=== PATIENT | female | born 1970 | race Caucasian/White ===

== ENCOUNTER 2023-06-23 11:02 | Inpatient (IN) | payer BC, SELFPAY ==
[2023-06-23] VITALS (18 sets, daily range): BP systolic 83–155; BP diastolic 47–92; PULSE 90–108; RESP 11–22; TEMP 36.3–36.7; O2SAT 95–100; BMI 32.1; BMI 31.6
--- NOTE | ~2023-06-23 | XR_ITS ---
EXAMINATION: XR UGI water soluble wo kub DATE: 06/27/2023 14:19 INDICATION: Status post repair of a perforated gastric ulcer. Assess for residual leak TECHNIQUE: Ammonia Operator overhead radiograph was obtained. Fluoroscopic images were obtained during injection of 240 mL water-soluble contrast into patient's existing nasogastric tube. A final overhead radiogra ph was obtained for a total of 2 radiographs and 188 fluoroscopic images. The amount of fluoroscopy t alexis used during this procedure was minutes. Total DAP was 26.185 Gycm^2 COMPARISON: CT dated 06/23/2023 FINDINGS: Ammonia Operator image demonstrates cholecystectomy clips in right upper quadrant, an additional surgical clip n oted left upper quadrant and midline skin car. A surgical drain extends across the epigastric reg ion. There is a nasogastric tube with tip in proximal side port in the body of the stomach. Subsequen t images demonstrate progressive contrast filling of the stomach with relatively prompt passage of co ntrast into the duodenum and more distal proximal jejunum. No evident extraluminal leakage of contras t. IMPRESSION: 1. No extraluminal leakage of contrast post repair of a perforated gastric ulcer at the gastric antru m. Reviewed, dictated and finalized at location A. IMPRESSION: 1. No extraluminal leakage of contrast post repair of a perforated gastric ulce r at the gastric antrum.
--- NOTE | ~2023-06-23 | XR_ITS ---
EXAMINATION: XR chest 1V portable DATE: 06/29/2023 16:32 INDICATION: Leukocytosis. TECHNIQUE: A single frontal view of the chest was obtained. COMPARISON: Chest single view 06/25/23 FINDINGS: There are airspace opacities in all lung zones bilaterally with a perihilar predominance, l eft worse than right. No pleural effusion or pneumothorax. The heart size is normal. IMPRESSION: 1. Worsened diffuse lung disease, consistent with pulmonary edema versus pneumonia. Reviewed, dictated and finalized at location E. IMPRESSION: 1. Worsened diffuse lung disease, consistent with pulmonary edema versus pneumo denzel.
--- NOTE | ~2023-06-23 | XR_ITS ---
EXAMINATION: XR chest 1V portable Exam Date/Time: 06/25/2023 13:20 CDT HISTORY: O2 saturation low Comparison: 06/23/2023. RESULT: Lines, tubes, and devices: None. Lungs and pleura: Linear mid and lower lung pulmonary opacities. Cardiomediastinal silhouette: Stable. Other: Large volume pneumoperitoneum. No acute osseous finding. IMPRESSION: Linear mid and lower lung pulmonary opacities with volume loss likely represent atelectasis, aspirati on/infection not excluded. Large pneumoperitoneum. Results reported telephonically to Destiny Sarmiento RN by Dr. Mcghee at 1:35 PM on 06/25/[address] Araceli philip at 1:41 PM on 06/25/2023. Reviewed, dictated and finalized at location K. IMPRESSION: Linear mid and lower lung pulmonary opacities with volume loss likely represent atelectasis, aspiration/infection not excluded. Large pneumoperitoneum. Results reported telephonically to Destiny Sarmiento RN by Dr. Mcghee at 1:35 PM on 06/25/[address] Ortega at 1:41 PM on 06/25/2023.
--- NOTE | ~2023-06-23 | CT_ITS ---
EXAMINATION: CTA chest abdomen pelvis DATE: 06/23/2023 14:02 INDICATION: Chest and abdominal pain TECHNIQUE: Computed tomographic angiography (CTA) of the chest, abdomen, and pelvis was performed wit hout and with 100 mL Omnipaque-350 intravenous contrast. Additional 3D reconstructions utilizing yazmin nal maximum intensity projection (MIP) were performed. Automated exposure control and iterative recon struction technique were employed. The dose-length product was 711.7 mGy-cm. COMPARISON: None FINDINGS: Chest: Mild groundglass opacities in the bilateral lower lobes and favor atelectasis over mild pulmonary dori ma or pneumonia. Heart size is normal. No pericardial or pleural effusion. Thoracic aorta is normal i n caliber with no dissection. Small sliding-type hiatal hernia. No pathologically enlarged thoracic l ymphadenopathy. Abdomen and pelvis: There is prominent edematous wall thickening along the anterior wall of the gastric antrum with air i s a deep color button ulceration which extends to near the serosal surface. Cholecystectomy clips the gallbladder fossa. There is heterogeneous attenuation of the spleen most likely related to the arter ial phase of contrast. Liver, pancreas, bilateral adrenal glands and kidneys are normal. Mild diffuse colonic wall thickening consistent with pancolitis. Small bowel and appendix are normal. Small amoun t of ascites scattered throughout the abdomen and pelvis. No abscess or free intraperitoneal gas. Nik dder is normal. The uterus is not identified and has likely been surgically resected. No pathological ly enlarged abdominal or pelvic lymphadenopathy. Normal caliber abdominal aorta with no dissection. M inimal scattered nonhemodynamically significant atherosclerotic plaque predominantly at the distal ao rta and bilateral common iliac arteries. IMPRESSION: 1. Normal aorta with no aneurysm or dissection. 2. Peptic ulcer disease with edematous wall thickening surrounding a collar button ulcer along the an terior wall of the gastric antrum. 3. Diffuse colonic wall thickening consistent with colitis which could be infectious, inflammatory or less likely ischemic in etiology. 4. Small amount of nonspecific ascites. Reviewed, dictated and finalized at location A. IMPRESSION: 1. Normal aorta with no aneurysm or dissection. 2. Peptic ulcer disease with edematous wall thickening surrounding a collar but ton ulcer along the anterior wall of the gastric antrum. 3. Diffuse colonic wall thickening consistent with colitis which could be infec tious, inflammatory or less likely ischemic in etiology. 4. Small amount of nonspecific ascites.
--- NOTE | ~2023-06-23 | CT_ITS ---
EXAMINATION: CT abdomen pelvis w con DATE: 07/01/2023 14:05 INDICATION: Postoperative leukocytosis TECHNIQUE: Computed tomography (CT) of the abdomen and pelvis was performed with 100 mL Omnipaque-350 intravenous contrast. Automated exposure control and iterative reconstruction technique were employe d. The dose-length product was 670.28 mGy-cm. COMPARISON: CT dated 06/23/2023 FINDINGS: Patchy groundglass opacities and consolidation in the left lower lobe, lingula, right middle lobe and minimally in the visualized right lower lobe. There are small bilateral pleural effusions. Heart siz e is normal. Atherosclerotic coronary artery calcifications. No pericardial effusion. There is persis tent wall thickening along the anterior wall of the gastric antrum at the site of the previous noted gastric ulcer there is a new portion of omental fat which now extends between the site of the gastric ulcer and the inferolateral margin of the left hepatic lobe which was not present at the time of the prior study consistent with the intervening gastric ulcer repair with omental patching. Left upper q uadrant surgical drain which extends across the midline along the caudal margin of the left hepatic l obe. There are midline upper abdominal wall skin car. Cholecystectomy clips the gallbladder fossa . Liver, spleen, pancreas, bilateral adrenal glands and kidneys are normal. There is layering fluid i n the colon consistent with nonspecific diarrhea. No bowel obstruction. Bladder is normal. The uterus is not identified and has likely been surgically resected. No free intraperitoneal gas or fluid. No pathologically enlarged abdominal or pelvic lymphadenopathy. Mild to moderate lower lumbar predominan t facet osteoarthritis. IMPRESSION: 1. Postoperative changes in the upper abdomen consistent with recent gastric antral ulcer repair with omental patching. There is some persistent wall thickening at the gastric antrum but no evident absc ess or free intraperitoneal gas or fluid. 2. Patchy groundglass opacities and consolidation in the bilateral lower lungs consistent with multif ocal pneumonia. 3. Small bilateral pleural effusions. 4. Fluid scattered throughout the colon consistent with nonspecific diarrhea. Reviewed, dictated and finalized at location A. IMPRESSION: 1. Postoperative changes in the upper abdomen consistent with recent gastric an tral ulcer repair with omental patching. There is some persistent wall thickeni ng at the gastric antrum but no evident abscess or free intraperitoneal gas or fluid. 2. Patchy groundglass opacities and consolidation in the bilateral lower lungs consistent with multifocal pneumonia. 3. Small bilateral pleural effusions. 4. Fluid scattered throughout the colon consistent with nonspecific diarrhea.
--- NOTE | ~2023-06-23 | XR_ITS ---
EXAMINATION: XR chest 1V portable Exam Date/Time: 06/23/2023 14:20 CDT HISTORY: chest pain TO LEFT SHOULDER Comparison: CTA chest abdomen pelvis, same date. RESULT: Lines, tubes, and devices: None. Lungs and pleura: Clear. Cardiomediastinal silhouette: Stable. Other: No acute osseous or upper abdominal finding. IMPRESSION: No acute cardiopulmonary process. Reviewed, dictated and finalized at location K.
[2023-06-23 12:36] LABS: Basophils Absolute Auto 0.1 K/mm3 (0.0-0.1); Basophils Percent Auto 0.6 % (0.2-1.2); Eosinophils Absolute Auto 0.1 K/mm3 (0-0.3); Eosinophils Percent Auto 0.4 % (0-4.4); Hematocrit 38.8 % (37.0-47.0); Hemoglobin 14.2 g/dL (12.0-15.0); Immature Granulocyte Absolute 0.03 K/mm3 (0.00-0.031); Immature Granulocyte Percent A 0.2 % (0-0.5); Lymphocytes Absolute Auto 0.89 K/mm3 (0.9-3.2); Lymphocytes Percent Auto 7.2 % (18.3-44.2); Mean Corpuscular HGB Conc 36.6 g/dl (32-36); Mean Corpuscular Hemoglobin 38.7 pg (26-34); Mean Corpuscular Volume 105.7 fl (80-100); Monocytes Percent Auto 8.2 % (2.6-8.5); Neutrophils Absolute Auto 10.2 K/mm3 (1.3-6.7); Neutrophils Percent Auto 83.4 % (45.5-73.1); Platelet Count Result 336 k/mm3 (150-375); Red Blood Count 3.67 M/mm3 (4.2-5.4); Red Cell Distribution Width 12.1 % (11.5-14.5); White Blood Count 12.3 K/mm3 (4.5-10.0)
[2023-06-23 12:39] LABS: Appearance Urine Clear (Clear); Bilirubin Urine Negative (Negative); Blood Urine Negative (Negative); Color Urine Yellow (Yellow); Glucose Urine UA Negative (Negative); Ketones Urine Negative (Negative); Leukocyte Esterase Ur Negative LEU/UL (Negative); Nitrate Urine Negative (Negative); Protein Urine Negative (Negative); Specific Grav Ur 1.009 (1.001-1.035); Urobilinogen Urine 0.2 mg/dL (<2.0); pH Urine 5.5 (5.0-9.0)
[2023-06-23 12:54] LABS: Add Urine Microscopic? NO
[2023-06-23 13:03] LABS: Macrocytosis 1+ (NORMAL); Platelet Estimate Adequate (Adequate); Schistocytes None Seen
--- NOTE | 2023-06-23 13:16 | ED.GENADULT ---
HPI - General Adult General Chief complaint: Unspecified Stated complaint: pain shoulderm neck,abdomen Time Seen by Provider: 06/23/23 12:51 History of Present Illness HPI narrative: Patient is a 53-year-old female with history of hypertension here today with shoulder pain, abdominal pain, generalized malaise, diarrhea. She states that 2 days ago she began having a decreased appetite and decreased energy. Yesterday she had 3 episodes of liquid stools with no associated abdominal pain or blood in stools. Today she began having some pain over her trapezius muscle on the left side and it radiates into her chest. She notes that the pain seems to be worse with deep breaths. The pain is not located in her left flank and radiates to her right flank. She denies any cough, congestion, sick contacts. She notes that the 1 time she felt similar to this in the past was when she had cholecystitis and had her gallbladder removed. She denies any prior cardiac history. No new foods or restaurants predating the symptoms. No prior colonoscopy. No urinary symptoms. Related Data Home Medications Medication Instructions Recorded Confirmed acetaminophen 325 mg tablet 650 mg PO Q6H PRN Pain 06/23/23 06/23/23 chlorpheniramine maleate 4 mg 4 mg PO Q4H PRN Allergy Symptoms 06/23/23 06/23/23 tablet cholecalciferol (vitamin D3) 50 2,000 unit PO DAILY 06/23/23 06/23/23 mcg (2,000 unit) capsule estradiol 2 mg tablet 2 mg PO DAILY 06/23/23 06/23/23 ferrous sulfate 325 mg (65 mg 325 mg PO DAILY 06/23/23 06/23/23 iron) tablet ibuprofen 200 mg tablet 400 mg PO BID PRN Pain 06/23/23 06/23/23 losartan 100 1 tablet PO DAILY 06/23/23 06/23/23 mg-hydrochlorothiazide 25 mg tablet Allergies Allergy/AdvReac Type Severity Reaction Status Date / Time No Known Allergies Allergy Mild Verified 06/23/23 11:04 Review of Systems Review of Systems: All systems reviewed & are unremarkable except as noted in HPI and below PMFSH Family History Family History (Updated 06/23/23 @ 21:27 by Julieta Parada RN) Sibling Hypertension Father Hypertension Meningitis Leukemia Social History Social History Smoking packs per day: 0.25 Smoking cigarettes per day: 5.0 Years smoked: 18 Smoking pack-years: 4.50 Smoking status: Current every day smoker Tobacco type: cigarettes Alcohol intake: current Drinks per week: 25 Substance use: never Other substance usage details: drinks vodka and water, last drink last evening Do You Feel Safe in your Home?: Yes Lack of Transportation: No Lack of Food: Never True Current Housing: I Have Housing Concerned About Future Housing: No Difficulty Paying Gas/Electric Bills: No Difficulty Paying for Meds: No Currently Unemployed: No Education: Associate Degree Difficulty w/ Childcare or Family Care: No Spiritual care concerns: No Exam Narrative: GENERAL: Ill-appearing, well-nourished, and in no acute distress. HEAD: Normocephalic, atraumatic. EYES: PERRLA and EOMI. ENT: Nares clear. Mucous membranes moist. NECK: Supple. Reproducible tenderness over the trapezius muscle on the left side CHEST: Clear to auscultation. No respiratory distress. HEART: tachycardic. Normal peripheral pulses. ABDOMEN: Bilateral CVA tenderness. Diffuse abdominal tenderness with guarding when palpating the bilateral upper quadrants. EXTREMITIES: Normal range of motion. No edema. SKIN: Warm, dry, no rash. NEURO: No focal deficits. Alert and oriented x3. Course Course Emergency Course: Chart review performed, patient here from urgent care for shoulder pain that goes to her abdomen, nausea, loose stools yesterday. Triage vitals show low blood pressure of 83/47, tachycardic at 108, afebrile. No prior visits in our system. Patient seen evaluated, ill-appearing and in quite a bit of pain. Her blood pressure is low at 83/47. Expect she likely has a an acute abdominal infectious pr
[2023-06-23 13:37] LABS: Sodium 118 mmol/L (137-145)
[2023-06-23 13:38] LABS: Alanine Aminotransferase 27 U/L (6-35); Albumin Level 4.3 g/dL (3.5-5.1); Alkaline Phosphatase 82 U/L (38-126); Anion Gap 16 mmol/L (4-12); Aspartate Amino Transferase 50 U/L (14-36); Bilirubin,Total 1.2 mg/dL (0.2-1.3); Blood Urea Nitrogen 9 mg/dL (7-17); Calcium 9.3 mg/dL (8.4-10.2); Carbon Dioxide 11 mmol/L (22-30); Chloride 91 mmol/L (98-107); Estimated CRCL calculation 52 ml/min; Estimated Glomerular Filt Rate 52; Glucose 80 mg/dL (65-110); Lipase 55 U/L (23-300); Potassium 2.8 mmol/L (3.4-5.0)
--- NOTE | 2023-06-23 13:44 | ECG_ITS ---
SEE SCANNED COPY FOR CONFIRMED REPORT MTDD
[2023-06-23] MEDS: ONDANSETRON INJ 4 MG/2 ML VIAL IV PUSH (14:01)
[2023-06-23] MEDS: MORPHINE SULFATE (*CRX) 4 MG/ML INJ IV PUSH ×2 (14:01→16:29)
[2023-06-23 14:33] LABS: Partial Thromboplastin Time 27.9 Seconds (22.3-36.8); Prothrombin Time 13.5 Seconds (11.1-14.7)
[2023-06-23 14:44] LABS: Lactic Acid Reflex 2.7 mmol/L (0.7-2.0)
[2023-06-23 14:47] LABS: CRP < 0.5 mg/dL (<1.0)
[2023-06-23] MEDS: PANTOPRAZOLE SODIUM IV 40 MG VIAL 80 MG IV PUSH (14:48)
[2023-06-23 14:54] LABS: Troponin I < 0.012 ng/mL (0.000-0.034)
[2023-06-23 14:58] LABS: Influenza A QL RT-PCR Negative (Negative); Influenza B QL RT-PCR Negative (Negative); RSV RNA, RT-PCR Negative (Negative); SARS-CoV-2 RNA PCR Negative (Negative)
[2023-06-23] MEDS: BELLADONNA ALK/PHENOB ELIX 10 ML, MAG HYDROX/ALUMINUM HYD/SIMETH 30 ML, LIDOCAINE HCL 2... PO (16:30)
[2023-06-23] MEDS: POTASSIUM BICARBONATE 25 MEQ TABEF 50 MEQ PO (17:03)
[2023-06-23] MEDS: POTASSIUM CHLORIDE INJ 40 MEQ in SODIUM CHLORIDE 0.9% IV 500 ML 130 MEQ IVPB (17:07)
[2023-06-23 17:19] LABS: Reflex Lactic Acid Yes or No Add Lactic
[2023-06-23 18:00] LABS: Anion Gap 9 mmol/L (4-12); Blood Urea Nitrogen 8 mg/dL (7-17); Calcium 8.6 mg/dL (8.4-10.2); Carbon Dioxide 18 mmol/L (22-30); Chloride 91 mmol/L (98-107); Estimated CRCL calculation 69 ml/min; Estimated Glomerular Filt Rate > 60; Glucose 92 mg/dL (65-110); Potassium 3.4 mmol/L (3.4-5.0); Sodium 118 mmol/L (137-145)
[2023-06-23] MEDS: metroNIDAZOLE 500 MG/ISO 100ML 500 MG/100 ML BAG 100 MG IVPB (18:14)
[2023-06-23 18:38] LABS: Magnesium 1.3 mg/dL (1.6-2.3)
[2023-06-23] MEDS: HYDROmorphone HCL INJ (*CRX) 1 MG/ML SYR IV PUSH ×2 (18:43→21:36)
[2023-06-23] MEDS: SODIUM CHLORIDE 0.9% IV 1,000 ML 75 ML IV CONT (18:44)
[2023-06-23] MEDS: CEFEPIME 2 GM/NS 50 ML 2 GM/50 ML BAG IVPB (19:06)
[2023-06-23 19:55] LABS: Lactic Acid 1.7 mmol/L (0.7-2.0)
--- NOTE | 2023-06-23 21:04 | ADMGEN ---
This patient, Acacia Sorto, was admitted to IMU Room 204-01. Patient/family oriented to hospital policies and general routines including ID bracelet, bed and alarms, visiting hours, pain management, procedures, bathroom and other care routines, personal items, smoking policy, room service/diet, and visiting hours. Information on how to activate the Rapid Response Team has been discussed. Patient/Family are encouraged to report perceived risks to care and to ask questions if they do not understand what they are told or what they should do.
--- NOTE | 2023-06-23 21:04 | PC.NURSE ---
Dr Luu to see patient. Informed MD of patients abdominal pain. She states only the dilaudid helped. Dr Luu OK with one time dose 1mg dilaudid.
[2023-06-23 22:35] LABS: Anion Gap 7 mmol/L (4-12); Blood Urea Nitrogen 10 mg/dL (7-17); Calcium 8.3 mg/dL (8.4-10.2); Carbon Dioxide 18 mmol/L (22-30); Chloride 95 mmol/L (98-107); Estimated CRCL calculation 56 ml/min; Estimated Glomerular Filt Rate 58; Glucose 113 mg/dL (65-110); Potassium 4.6 mmol/L (3.4-5.0); Sodium 120 mmol/L (137-145)
[2023-06-24] VITALS (18 sets, daily range): BP systolic 98–121; BP diastolic 55–61; PULSE 89–122; RESP 18–20; TEMP 36.1–36.9; O2SAT 96–100
[2023-06-24] MEDS: HYDROmorphone HCL INJ (*CRX) 1 MG/ML SYR IV PUSH ×4 (04:10→20:59)
--- NOTE | 2023-06-24 04:10 | PM.IMHP ---
H&P: HPI History of Present Illness Date/Time: 06/24/23 04:10 Chief Complaint: Abdominal pain Narrative: 53-year-old female with a past medical history of obesity, chronic heavy alcohol use, tobacco use, irritable bowel syndrome and essential hypertension who presented to the ER via private vehicle from urgent care due to left shoulder pain, that radiated down to the abdomen and was more generalized as time went Patient reports that 2 days ago she developed a precipitous decrease in appetite and felt fatigued give. Then yesterday she had 3 episodes of profuse diarrhea that she stated seemed like he was from a fire hose that was green in color. She reports her stools are usually green due to iron supplements. It was accompanied by some nausea but not any significant vomiting. She reports that her symptoms initially started in the left upper shoulder into the trapezius in seemed to radiate down her side and across her abdomen. As time went on the pain became more generalized. She has noticed some increased abdominal fullness in the top of her abdomen over the last several days. She denies any hematochezia or melena. She reports that she was started on iron supplements in December when she developed anemia. Her ferritin at that time was down to 7. She did not have a GI evaluation. She thought that her iron deficiency was because she did not eat a significant amount of meat. She has never had a EGD or colonoscopy. She does report a chronic sensation of having to clear her throat and postnasal drip. She intermittently but frequently has episodes of significant decreased appetite. She has a tendency towards loose stools ever since she had her cholecystectomy around 1995. She reports that her weight has been decreasing at least since December. She has not been having any fevers but did have some cold clammy sweats yesterday. She denies any urinary changes. She has not had any recent travel and denies any ill contacts. She denies family history of inflammatory bowel disease. CT of the chest abdomen pelvis performed in the ER demonstrated peptic ulcer disease with edematous wall thickening surrounding a collar button ulcer along the anterior wall of the gastric antrum, diffuse colonic wall thickening consistent with colitis which could be infectious inflammatory or less likely ischemic. Patient also had a small amount of ascites. She denies a history of cirrhosis but does drink 3-4 vodka containing beverages a day. She denies any history of anxiety tremors or symptom of alcohol withdrawal with cessation of alcohol. She states that she has stopped drinking in the past without symptoms but it is been a while. She reports that when she had her recent testing for her anemia is they also checked B12 levels and vitamin-D levels. She is vitamin-D deficient but denies B12 deficiency. Patient does report that she has frequent need for naps in the afternoon. She has been told that she snores. She has never had a sleep study. She denies cardiac history. She has a murmur noted on exam. Patient denies any dyspnea on exertion, palpitations or lower extremity swelling. She denies known history of murmur. Review of Systems Review of Systems: 12 systems were reviewed with pertinent positives and negatives per HPI. Except as documented in the HPI, all other systems were reviewed and are negative. [facility] Past Medical History Medical History Chronic alcohol abuse Eczema Essential hypertension Obesity (BMI 30.0-34.9) Vitamin D deficiency Surgical History Surgical History (Updated 06/24/23 @ 09:07 by Julieta Angulo DO) History of tonsillectomy and adenoidectomy History of total abdominal hysterectomy and bilateral salpingo-oophorectomy (~2004) Endometriosis History of tubal ligation Hx of cholecystectomy (~1994) Family History Family History (Reviewed 06/24/23 @ 09:07 by Julieta Angulo
[2023-06-24] MEDS: metroNIDAZOLE 500 MG/ISO 100ML 500 MG/100 ML BAG 100 MG IVPB ×3 (04:15→23:06)
[2023-06-24 05:06] LABS: Hematocrit 30.7 % (37.0-47.0); Mean Corpuscular HGB Conc 35.8 g/dl (32-36); Mean Corpuscular Hemoglobin 38.3 pg (26-34); Mean Platelet Volume 9.3 fl (7.4-10.4); Platelet Count Result 271 k/mm3 (150-375); Red Blood Count 2.87 M/mm3 (4.2-5.4); Red Cell Distribution Width 12.4 % (11.5-14.5); White Blood Count 5.3 K/mm3 (4.5-10.0)
[2023-06-24 05:22] LABS: Anion Gap 6 mmol/L (4-12); Blood Urea Nitrogen 11 mg/dL (7-17); Calcium 8.2 mg/dL (8.4-10.2); Carbon Dioxide 22 mmol/L (22-30); Chloride 95 mmol/L (98-107); Estimated CRCL calculation 56 ml/min; Estimated Glomerular Filt Rate 58; Glucose 102 mg/dL (65-110); Potassium 4.1 mmol/L (3.4-5.0); Sodium 123 mmol/L (137-145)
[2023-06-24] MEDS: PANTOPRAZOLE SODIUM IV 40 MG VIAL IV PUSH ×2 (08:20→20:58)
[2023-06-24] MEDS: THIAMINE HCL 100 MG TABLET PO (08:20)
[2023-06-24] MEDS: FOLIC ACID 1 MG TABLET PO (08:20)
[2023-06-24] MEDS: CHOLECALCIFEROL 1,000 UNITS TABLET 2000 UNITS PO (08:20)
[2023-06-24 08:35] LABS: Sodium 126 mmol/L (137-145)
[2023-06-24 08:37] LABS: Alanine Aminotransferase 19 U/L (6-35); Albumin Level 3.4 g/dL (3.5-5.1); Alkaline Phosphatase 56 U/L (38-126); Aspartate Amino Transferase 28 U/L (14-36); Bilirubin,Total 0.7 mg/dL (0.2-1.3); Lipase 24 U/L (23-300); Magnesium 1.7 mg/dL (1.6-2.3)
--- NOTE | 2023-06-24 09:00 | P.CONGI_ITS ---
I, Prashanth Rivera MD, have provided a substantive portion of the care of this patient and discussed the patient with my Nurse Practitioner. I have reviewed any new relevant radiographic and laboratory results including medications. I agree with her documentation as noted below.?I personally performed the medical decision making and much of the history and exam for this encounter. briefly here with new onset of severe abdominal pain, also chronic use of alcohol, nsaid's, never had scopes. Also intermittent diarrhea. CT scan showed possible stomach ulcer and colitis, started on antibiotics. Plan is stool cultures, protonix, thiamine, abx and will do egd/colonoscopy tomorrow, patient is agreeable Assessment and Plan Assessment and plan (1) Chronic alcohol abuse: Code(s): F10.10 - Alcohol abuse, uncomplicated Status: Acute (2) Gastric ulcer: Qualifiers: Gastric ulcer chronicity: acute Gastric ulcer complication status: without hemorrhage or perforation Qualified Code(s): K25.3 - Acute gastric ulcer without hemorrhage or perforation Code(s): K25.9 - Gastric ulcer, unspecified as acute or chronic, without hemorrhage or perforation Status: Acute (3) Colitis: Code(s): K52.9 - Noninfective gastroenteritis and colitis, unspecified Status: Acute (4) Macrocytic anemia: Code(s): D53.9 - Nutritional anemia, unspecified Status: Acute (5) Acute hyponatremia: Code(s): E87.1 - Hypo-osmolality and hyponatremia Status: Acute (6) Diarrhea: Qualifiers: Diarrhea type: unspecified type Qualified Code(s): R19.7 - Diarrhea, unspecified Code(s): R19.7 - Diarrhea, unspecified Status: Acute Plan 1) LUQ/generalized abdominal pain/nausea/abnormal imaging digestive: Patient has never had an EGD. Patient with an acute onset of severe pain that started yesterday morning. She states that the pain started in her left shoulder then moved into her left upper quadrant and is now radiating throughout her abdomen. This pain is sharp and debilitating at times An increases when she tries to cough or take a deep breath. Patient with a longstanding history of NSAID use stating that she takes ibuprofen 2 to 3 times a day. She drinks alcohol 3-4 mixed drinks daily. She has occasional GERD and nausea prior to admission that was controlled with p.r.n. Tums. LFTs and lipase normal. CTA showed peptic ulcer disease with edematous wall thickening surrounding a collar button ulcer on the anterior wall of the gastric antrum. Denies melena or hematemesis. Patient denies aspirin or anticoag use [employer]. * Continue BID PPI * Start carafate 1 gm ac/hs * Avoid NSAID's, aspirin and anticoags * Plan for EGD tomorrow once electrolytes are corrected * Continue supportive are with pain management and antiemetics as needed 2) Abnormal imaging digestive-colitis/diarrhea: No colonoscopy history. Family Hx negative for CRC or IBD. Admits to chronic diarrhea that has been occurring for years. On average patient is having 2-3 loose to liquid occasionally urgent BM's per day that are Mostly postprandial but does not seem to have a direct correlation with food intake. Patient admits to a history of varying vitamin deficiencies which she states were corrected last year and for awhile she was feeling better . Patient has been using OTC Imodium as needed to control d iarrhea prior to social activities. CT showed diffuse colonic wall thickening. C-Diff negative. Denies hematochezia. * Continue antibiotics * Stool studies order to evaluate for possible causes of chronic diarrhea * Celiac panel ordered * Plan
--- NOTE | 2023-06-24 09:00 | WPDGICN ---
Assessment and Plan Assessment and plan (1) Chronic alcohol abuse: Code(s): F10.10 - Alcohol abuse, uncomplicated Status: Acute (2) Gastric ulcer: Qualifiers: Gastric ulcer chronicity: acute Gastric ulcer complication status: without hemorrhage or perforation Qualified Code(s): K25.3 - Acute gastric ulcer without hemorrhage or perforation Code(s): K25.9 - Gastric ulcer, unspecified as acute or chronic, without hemorrhage or perforation Status: Acute (3) Colitis: Code(s): K52.9 - Noninfective gastroenteritis and colitis, unspecified Status: Acute (4) Macrocytic anemia: Code(s): D53.9 - Nutritional anemia, unspecified Status: Acute (5) Acute hyponatremia: Code(s): E87.1 - Hypo-osmolality and hyponatremia Status: Acute (6) Diarrhea: Qualifiers: Diarrhea type: unspecified type Qualified Code(s): R19.7 - Diarrhea, unspecified Code(s): R19.7 - Diarrhea, unspecified Status: Acute Plan 1) LUQ/generalized abdominal pain/nausea/abnormal imaging digestive: Patient has never had an EGD. Patient with an acute onset of severe pain that started yesterday morning. She states that the pain started in her left shoulder then moved into her left upper quadrant and is now radiating throughout her abdomen. This pain is sharp and debilitating at times An increases when she tries to cough or take a deep breath. Patient with a longstanding history of NSAID use stating that she takes ibuprofen 2 to 3 times a day. She drinks alcohol 3-4 mixed drinks daily. She has occasional GERD and nausea prior to admission that was controlled with p.r.n. Tums. LFTs and lipase normal. CTA showed peptic ulcer disease with edematous wall thickening surrounding a collar button ulcer on the anterior wall of the gastric antrum. Denies melena or hematemesis. 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 Continue BID PPI Start carafate 1 gm ac/hs Avoid NSAID's, aspirin and anticoags Plan for EGD tomorrow once electrolytes are corrected Continue supportive are with pain management and antiemetics as needed 2) Abnormal imaging digestive-colitis/diarrhea: No colonoscopy history. Family Hx negative for CRC or IBD. Admits to chronic diarrhea that has been occurring for years. On average patient is having 2-3 loose to liquid occasionally urgent BM's per day that are Mostly postprandial but does not seem to have a direct correlation with food intake. Patient admits to a history of varying vitamin deficiencies which she states were corrected last year and for awhile she was feeling better . Patient has been using OTC Imodium as needed to control diarrhea prior to social activities. CT showed diffuse colonic wall thickening. C-Diff negative. Denies hematochezia. Continue antibiotics Stool studies order to evaluate for possible causes of chronic diarrhea Celiac panel ordered Plan for colonoscopy tomorrow Clear liquid diet today and then NPO after midnight 3) Macrocytic anemia: Drop in H/H since admission with WBC's 5, Hgb 14-->11, Hct 39-->31, MCV 107 and platelets 271. Hx of daily ETOH use. No signs of active GI bleeding. B12 and folate pending 4) Hyponatremia: On admission sodium at 118 and today 126. Primary care team to monitor and correct prior to endoscopy 5) ETOH abuse: Cessation recommended GI Consult Note Consult date/time: 06/24/23 09:00 Reason for consult: Gastric ulcer HPI: Acacia Sorto is a 53 year old female with a history of EtOH abuse, IBS, and HTN. she presented to the emergency room yesterday with complaints of left shoulder pain that was radiating into her abdomen. GI was consulted for gastric ulcer noted on imaging. Patient admits to acute onset of severe pain that started yesterday morning. Prior to admission the patient states that she was taking ibuprofen 2-3 times daily for a long time . She states that the pain starte
--- NOTE | 2023-06-24 09:30 | PC.NURSE ---
updated on sodium level of 126. MD ordered pausing IV fluids, repeat labs at 1130, and to be notified with lab result.
[2023-06-24 09:43] LABS: Folic Acid 2.9 ng/mL (2.76->20)
[2023-06-24 10:13] LABS: Creatinine Urine 53.5 mg/dL; Total Protein Urine Random 15 mg/dL; Ur Ttl Prot Creatinine Ratio 0.28 mg/mg (0-0.20); Urea Random Urine 210 MG/DL
[2023-06-24 10:23] LABS: Sodium Urine Random 28 meq/L
--- NOTE | 2023-06-24 10:48 | PM.CNNEP ---
Assessment and Plan Assessment and plan (1) Acute hyponatremia: Code(s): E87.1 - Hypo-osmolality and hyponatremia Status: Acute Assessment and Plan: presumably acute (but no previous labs to compare) improvement noted with gentle normal saline IVFs this argues in favor of hypovolemia as etiology of low sodium history of alcohol as well as HCTZ use may be contributing factors check TSH, cortisol, SPEP, UPEP, and serum/urine osmolality as well as urine electrolytes follow serial sodium levels (2) Acute hypokalemia: Code(s): E87.6 - Hypokalemia Status: Acute Assessment and Plan: due to poor oral intake and ongoing GI symptoms replete as needed (3) Colitis: Code(s): K52.9 - Noninfective gastroenteritis and colitis, unspecified Status: Acute Assessment and Plan: as noted by admission imaging follow culture data on antibiotics (4) Gastric ulcer: Qualifiers: Gastric ulcer chronicity: acute Gastric ulcer complication status: without hemorrhage or perforation Qualified Code(s): K25.3 - Acute gastric ulcer without hemorrhage or perforation Code(s): K25.9 - Gastric ulcer, unspecified as acute or chronic, without hemorrhage or perforation Status: Acute Assessment and Plan: as noted by admission imaging GI consulted noted plans for EGD and colonoscopy I will continue to follow the patient with you while she remains hospitalized make further recommendations as deemed necessary Thank you for allowing me to participate in the care this patient. History of Present Illness Reason for Consult Consult date: 06/24/23 Reason for consult: hyponatremia Chief Complaint Chief complaint: Colitis/Gastric Ulcer/Hyponatremia History of Present Illness Narrative: The patient is a 53-year-old female with a past medical history as outlined below who presented to [facility] Emergency room for further evaluation of abdominal pain. The patient reports that approximately 48 hr prior to admission she had developed a significant decrease in her appetite /poor oral intake in in association with fatigue. This is a round the same time when she developed the abdominal pain that initially started her left shoulder that but that radiated down to her abdomen and progressively worsened as well. The symptoms were accompanied by intermittent diarrhea although she reports that she has chronic loose stools since her cholecystectomy several years ago. As the symptoms continued to progressively worsen, she presented to the emergency room for further assessment. Workup and evaluation emergency room demonstrated the patient be hypotensive with a systolic BP in the 80s in association with tachycardia but otherwise afebrile. She appeared in moderate distress and subsequent blood test were significant for a mildly elevated white blood cell count of 12.3 but her chemistry was concerning for significant hyponatremia with a sodium of 118 association with hypokalemia. Her urinalysis was negative and a CT scan of her abdomen and pelvis demonstrated evidence of peptic ulcer disease with a Demadex wall thickening surrounding an ulcer along the anterior wall of the gastric antrum. With diffuse colitis but no free air. She received supplemental potassium, IV Protonix as well as a GI cocktail, and IV morphine. After appropriate cultures were obtained, she was started on IV antibiotics as well and GI was consulted from the ER. She was started on gentle IV fluids given her hyponatremia and subsequently admitted to the hospital for further evaluation and therapy. Since her admission, she still has issues with abdominal pain but her sodium level as improved with ongoing supportive therapy and IV fluids. Renal consultation was requested due to her acute hyponatremia. From my discussion with the patient, she has never been told or had any issues with hyponatremia in the pas
[2023-06-24] MEDS: SUCRALFATE 1 GM TABLET PO ×3 (11:41→20:58)
[2023-06-24 12:19] LABS: Sodium 126 mmol/L (137-145)
[2023-06-24 12:59] LABS: CRP 24.9 mg/dL (<1.0)
[2023-06-24] MEDS: polyethylene glycoL 3350 238 GM BOTTLE PO (14:27)
[2023-06-24] MEDS: BISACODYL 5 MG TABLET EC 20 MG PO (14:28)
[2023-06-24 17:22] LABS: Sodium 124 mmol/L (137-145)
--- NOTE | 2023-06-24 17:28 | PC.NURSE ---
updated with Sodium level of 126 at 1230, MD ordered repeat draw at 1730. updated with sodium level of 124 at 1730, MD ordered repeat draw at 2300.
--- NOTE | 2023-06-24 17:43 | PM.IMPN ---
Progress Note: A&P Assessment and Plan (1) Colitis: Code(s): K52.9 - Noninfective gastroenteritis and colitis, unspecified Status: Acute Assessment and Plan: Patient presented with diffuse abdominal pain CT demonstrates colitis infectious versus inflammatory; she has a hx of GI symptoms so consider IBD. She was started on empiric antibiotic therapy with Rocephin and Flagyl C diff and Stool culture pending GI consulted and appreciated their input. Patient getting Dilaudid for pain - wean off tomorrow Clear liquid diet started. COntineu IV fluids Colonoscopy planned for tomorrow. (2) Gastric ulcer: Qualifiers: Gastric ulcer chronicity: acute Gastric ulcer complication status: without hemorrhage or perforation Qualified Code(s): K25.3 - Acute gastric ulcer without hemorrhage or perforation Code(s): K25.9 - Gastric ulcer, unspecified as acute or chronic, without hemorrhage or perforation Status: Acute Assessment and Plan: Possible gastric ulcer noted on imaging. Possibly related to tobaaco and alcohol use with recent ibuprofen use Received 1 dose of Protonix 80 mg IV in the ER and started on b.i.d. Protonix EGD planned (3) Acute hyponatremia: Code(s): E87.1 - Hypo-osmolality and hyponatremia Status: Acute Assessment and Plan: Sodium 118 on admission Related to meds (HCTA), alcoholism, dehydration, pain. TSH normal but Cortisol elevated but could be related to above. Treated with IV fluids. Nephrology consulted and appreciate their input 6-8mmol in past 24 hours Continue to follow (4) Acute hypokalemia: Code(s): E87.6 - Hypokalemia Status: Acute Assessment and Plan: Potassium 2.8 on admission but normal now after rpelacement Follow (5) Chronic alcohol abuse: Code(s): F10.10 - Alcohol abuse, uncomplicated Status: Acute Assessment and Plan: Patient with chronic alcohol abuse. Thiamine and and folate added. [facility] protocol Ativan and Librium available for s/sx of withdrawal. (6) Megaloblastic anemia: Code(s): D53.1 - Other megaloblastic anemias, not elsewhere classified Status: Acute Assessment and Plan: B12 and folate normal. Folate low end of normal but now on replacement Related to underlying liver disease from her alcoholism (7) Ascites: Code(s): R18.8 - Other ascites Status: Acute Assessment and Plan: The patient does have ascites noted on CT. This could be due to inflammation from the colitis and/or underlying hepatic dysfunction Consider also malignancy. Paracentesis if sufficient amount of fluid can be obtained. (8) Obesity (BMI 30.0-34.9): Code(s): E66.9 - Obesity, unspecified Status: Acute Assessment and Plan: The patient does have snoring he reports that she takes naps daily and sometimes falls asleep at her desk at work. She would benefit from outpatient polysomnogram. ApneaLink ordered but she is on narcotics so casandra hold on checking this for now (9) Cardiac murmur: Code(s): R01.1 - Cardiac murmur, unspecified Status: Acute Assessment and Plan: Patient with heart murmur on exam but denies any significant symptoms. This could be evaluated as outpatient if she becomes symptomatic. Plan DVT prophyalxis - SCDs Code statu s- Full Subjective Date/time seen: 06/24/23 17:43 Interval history: 53yo female with alcoholism, IBS and HTN here for left shoulder adn abdominal pain and found to have colitis and possible peptic ulcer. No CP or SOB. Still with significant abdominal pain. No n/v. No diarhea. Voiding normally. Toelrated some clear liquids. Exam Narrative: AF 96.9 114/56 96 20 99% ra Gen - NARD lying semi-recumbent in bed Chest - clear anteriorly and in the flankd CV - RRR S1/S2. Tele showing sinus tachycardia at times. Abd - Soft, diffuse voluntary guarding, +BS Ext -
--- NOTE | 2023-06-24 20:05 | PCRCNOTE ---
Patient states she is having a Colonoscopy in the morning and will be up using the restroom from drinking Miralax. Apnea link monitoring will be postpone until tomorrow night.
[2023-06-24 23:09] LABS: Sodium 124 mmol/L (137-145)
[2023-06-25] VITALS (41 sets, daily range): BP systolic 102–148; BP diastolic 42–114; PULSE 100–141; RESP 12–27; TEMP 36.2–37.2; O2SAT 75–100
[2023-06-25] MEDS: HYDROmorphone HCL INJ (*CRX) 1 MG/ML SYR IV PUSH ×5 (01:15→18:34)
[2023-06-25] MEDS: SODIUM CHLORIDE 0.9% IV 1,000 ML 70 ML IV CONT (01:16)
[2023-06-25] MEDS: MAGNESIUM CITRATE 300 ML BTL PO (02:43)
[2023-06-25 04:50] LABS: Hematocrit 29.5 % (37.0-47.0); Hemoglobin 10.3 g/dL (12.0-15.0); Mean Corpuscular HGB Conc 34.9 g/dl (32-36); Mean Corpuscular Hemoglobin 38.3 pg (26-34); Mean Corpuscular Volume 109.7 fl (80-100); Mean Platelet Volume 9.6 fl (7.4-10.4); Platelet Count Result 257 k/mm3 (150-375); Red Blood Count 2.69 M/mm3 (4.2-5.4); Red Cell Distribution Width 12.3 % (11.5-14.5); White Blood Count 9.7 K/mm3 (4.5-10.0)
[2023-06-25] MEDS: metroNIDAZOLE 500 MG/ISO 100ML 500 MG/100 ML BAG 100 MG IVPB ×2 (05:10→23:54)
[2023-06-25] MEDS: SUCRALFATE 1 GM TABLET PO ×2 (05:10→11:30)
[2023-06-25 05:16] LABS: Band Neutrophils Percent 10 % (0-6); Lymphocytes Absolute Manual 0.87 K/mm3 (1.1-4.5); Monocytes Absolute Manual 0.67 K/mm3 (0.1-0.90); Monocytes Percent Manual 7 % (3-9); Neutrophils Absolute Manual 8.14 K/mm3 (1.7-7.2); Neutrophils Percent Manual 74 % (46-73); Total Cells Counted 100
[2023-06-25 05:17] LABS: Platelet Estimate Adequate (Adequate); Schistocytes None Seen
[2023-06-25 05:21] LABS: Albumin Level 3.6 g/dL (3.5-5.1); Anion Gap 9 mmol/L (4-12); Blood Urea Nitrogen 8 mg/dL (7-17); Calcium 8.6 mg/dL (8.4-10.2); Carbon Dioxide 21 mmol/L (22-30); Chloride 97 mmol/L (98-107); Estimated CRCL calculation 78 ml/min; Estimated Glomerular Filt Rate > 60; Glucose 107 mg/dL (65-110); Phosphorus 3.3 mg/dL (2.5-4.5); Potassium 3.3 mmol/L (3.4-5.0); Sodium 127 mmol/L (137-145)
[2023-06-25 06:21] LABS: CRP 35.7 mg/dL (<1.0)
[2023-06-25 06:59] LABS: Protein, Total 4.9 g/dL (6.1-8.1)
[2023-06-25] MEDS: CHOLECALCIFEROL 1,000 UNITS TABLET 2000 UNITS PO (10:07)
[2023-06-25] MEDS: FOLIC ACID 1 MG TABLET PO (10:07)
[2023-06-25] MEDS: THIAMINE HCL 100 MG TABLET PO (10:07)
[2023-06-25] MEDS: PANTOPRAZOLE SODIUM IV 40 MG VIAL IV PUSH ×2 (10:08→19:50)
[2023-06-25 10:47] LABS: Sodium 125 mmol/L (137-145)
--- NOTE | 2023-06-25 12:19 | WPDANESEPPF ---
Anes - Initial Pre Proc Eval Procedure: Operation Date: 06/25/23 14:00 Proposed Procedures p Esophagogastroduodenoscopy & Colonoscopy - Prashanth Rivera MD Date/Time: 06/25/23 12:19 Surgeon: Nora Luu MD Pre Op Diagnosis: Colitis/Gastric Ulcer/Hyponatremia Patient Data Age: 53 Gender: F Height: 1.57 m Weight: 77.8 kg Last Vital Signs Temp 97.4 F L 06/25/23 11:45 Pulse 106 H 06/25/23 11:45 Resp 18 06/25/23 11:45 BP 129/62 06/25/23 11:45 Pulse Ox 99 06/25/23 11:45 O2 Del Method Room Air 06/25/23 08:00 Allergies Allergy/AdvReac Type Severity Reaction Status Date / Time No Known Allergies Allergy Mild Verified 06/25/23 12:18 Home Medications Medication Instructions Recorded Confirmed Type acetaminophen 325 mg tablet 650 mg PO Q6H PRN Pain 06/23/23 06/23/23 History chlorpheniramine maleate 4 mg 4 mg PO Q4H PRN Allergy Symptoms 06/23/23 06/23/23 History tablet cholecalciferol (vitamin D3) 50 2,000 unit PO DAILY 06/23/23 06/23/23 History mcg (2,000 unit) capsule estradiol 2 mg tablet 2 mg PO DAILY 06/23/23 06/23/23 History ferrous sulfate 325 mg (65 mg 325 mg PO DAILY 06/23/23 06/23/23 History iron) tablet ibuprofen 200 mg tablet 400 mg PO BID PRN Pain 06/23/23 06/23/23 History losartan 100 1 tablet PO HS 06/23/23 06/24/23 History mg-hydrochlorothiazide 25 mg tablet Laboratory Tests 06/24/23 06/24/23 06/24/23 08:21 11:49 17:08 WBC RBC Hgb Hct MCV MCH MCHC RDW Plt Count MPV Immature Gran % (Auto) Neut % (Auto) Lymph % (Auto) [place] % (Auto) Eos % (Auto) Baso % (Auto) Lymph # (Auto) [place] # (Auto) Eos # (Auto) Baso # (Auto) Abs Immat Gran (auto) Absolute Neuts (auto) Absolute Nucleated RBC Total Counted Neutrophils % (Manual) Band Neutrophils % Lymphocytes % (Manual) Monocytes % (Manual) Nucleated RBC % Abs Neuts (Manual) Abs Lymphs (Manual) Abs Monocytes (Manual) Platelet Estimate Schistocytes Sodium 126 L mmol/L 124 L mmol/L (137-145) (137-145) Potassium Chloride Carbon Dioxide Anion Gap BUN Creatinine Estim Creat Clear Calc Estimated GFR Glucose Calcium Phosphorus Magnesium C-Reactive Protein 24.9 H mg/dL (<1.0) Total Protein 4.9 L g/dL (6.1-8.1) Albumin 06/24/23 06/25/23 06/25/23 22:59 04:06 10:34 WBC 9.7 K/mm3 (4.5-10.0) RBC 2.69 L M/mm3 (4.2-5.4) Hgb 10.3 L g/dL (12.0-15.0) Hct 29.5 L % (37.0-47.0) MCV 109.7 H fl (80-100) MCH 38.3 H pg (26-34) MCHC 34.9 g/dl (32-36) RDW 12.3 % (11.5-14.5) Plt Count 257 k/mm3 (150-375) MPV 9.6 fl (7.4-10.4) Immature Gran % (Auto) Not Reportable Neut % (Auto) Not Reportable Lymph % (Auto) Not Reportable [place] % (Auto) Not Reportable Eos % (Auto) Not Reportable Baso % (Auto) Not Reportable Lymph # (Auto) Not Reportable [place] # (Auto) Not Reportable Eos # (Auto) Not Reportable Baso # (Auto) Not Reportable Abs Immat Gran (auto) Not Reportable Absolute Neuts (auto) Not Reportable Absolute Nucleated RBC Not Reportable Total Counted 100 Neutrophils % (Manual) 74 H % (46-73) Band Neutrophils % 10 H %
[2023-06-25] MEDS: LACTATED RINGERS 1,000 ML 150 ML IV CONT ×2 (12:21→14:07)
--- NOTE | 2023-06-25 12:50 | SUR.OPER ---
Cancelled colonoscopy due to perforated gastric ulcer found on EGD.
--- NOTE | 2023-06-25 13:37 | SUR.PHASEII ---
At 12:47 Patient arrives to recovery reporting 10 out of 10 abdominal pain, Vital signs stable with difficulty getting O2 saturation reading. At 12:50 SAVI Covarrubias gave 50mcg IV fentanyl. Pain level re-evaluated and improved to resting and reporting 9 out of 10 while coughing. Stat X-ray completed, O2 saturation at 90% on 4L nasal canula. Dr. Petty made aware and okay to transfer pt. back to floor to await for surgery as long as floor RN aware of situation and knows to look for x-ray results. JOAQUIN Chavez given multiple reports throughout.
--- NOTE | 2023-06-25 13:51 | SUR.PHASEII ---
1350: DR SCHWARZ MADE AWARE OF CXR RESULTS, NO NEW ORDERS.
[2023-06-25 14:14] LABS: Kappa\\Lambda Light Chains 1.37 (0.26-1.65); Lambda Light Chain 13.1 mg/L (5.7-26.3)
--- NOTE | 2023-06-25 14:36 | SUR.PHASEII ---
1350: PT REMAINS IN GI POST OP WITH SPOUSE AT BEDSIDE. PT AWAKE, ALERT, TALKING WITHOUT DIFFICULTY. PT RESTING COMFORTABLY. RN SPOKE WITH DR GENAO IN REGARDS TO SEE IF PT IS GOING BACK TO IMU PRIOR TO SURGERY OR IF PT WILL GO DIRECTLY TO THE O.R. RN SPOKE WITH BRYCE, PHLEBOTOMIST SUPERVISOR/INSTRUCTOR AND HE WILL CALL WITH UPDATES. ANAMIKA, PRESS HAND IN GI LAB AND UPDATED ON PT STATUS. MATT, SURGICAL CUSTOMER CARE ASSISTANT IN GI LAB, GIVEN PT REPORT, SPOKE WITH AND SAW PT AND SPOUSE, EXPLAINED SURGERY TO PT, PT STATES UNDERSTANDING. AWAITING THE OR TO TAKE PT TO SURGERY FROM GI LAB. PT AND SPOUSE AWARE.
[2023-06-25 15:08] LABS: Osmolality, Urine 276 mOsm/kg (50-1200)
--- NOTE | 2023-06-25 15:11 | PM.CNGS ---
Assessment and Plan Assessment and plan (1) Perforated gastric ulcer: Code(s): K25.5 - Chronic or unspecified gastric ulcer with perforation Status: Acute Assessment and Plan: Patient presented with CT findings of a gastric ulcer with no evidence of perforation on CT 2 days ago. She has chronic NSAID use and heavy alcohol use. During her EGD today, she had findings of a perforated ulcer in the anterior gastric antrum. She is tender on exam with diffuse peritoneal signs. Will adjust her IV antibiotics to IV Zosyn and metronidazole. We would recommend proceeding with an urgent exploratory laparotomy, repair of gastric ulcer by Dr. Castro under general anesthesia. Description of the procedure, risks, benefits, alternatives, and expected recovery were discussed with the patient in detail. Will plan to place an NG tube for decompression that will be continued postoperatively. Will keep her NPO and continue IV fluids. (2) Colitis: Code(s): K52.9 - Noninfective gastroenteritis and colitis, unspecified Status: Acute Assessment and Plan: CT showed evidence of pancolitis. Stool studies ordered but not collected. GI following. Colonoscopy cancelled after finding perforated gastric ulcer on EGD. (3) Acute hyponatremia: Code(s): E87.1 - Hypo-osmolality and hyponatremia Status: Acute Assessment and Plan: Sodium 118 on admission and up to 125 today, Nephrology following. (4) Chronic alcohol abuse: Code(s): F10.10 - Alcohol abuse, uncomplicated Status: Acute Assessment and Plan: Cessation recommended. (5) Megaloblastic anemia: Code(s): D53.1 - Other megaloblastic anemias, not elsewhere classified Status: Acute (6) Obesity (BMI 30.0-34.9): Code(s): E66.9 - Obesity, unspecified Status: Acute Plan I have discussed the patient's case and plan of care with Dr. Castro. Thank you for allowing us to see the patient in consultation and we will continue to follow along with you. History of Present Illness Consult details Consult date: 06/25/23 Reason for consult: other (Perforated gastric ulcer) Requesting physician: Prashanth Rivera MD Narrative: This is a 53-year-old with a history of hypertension, alcohol abuse, and tobacco abuse, who we have been asked to see in surgical consultation for perforated gastric ulcer. She presented to the ER 2 days ago with shoulder pain, abdominal pain, generalized malaise, and diarrhea. She also reported decreased appetite and fatigue. She was initially complaining of diffuse upper abdominal pain over the past few days. Labs in the ER [place] [address] scan of the chest abdomen and pelvis showed peptic ulcer disease with edematous wall thickening surrounding a collar-button ulcer along the anterior wall of the gastric antrum, diffuse colonic wall thickening consistent with sofia colitis. No CT evidence of cirrhosis, but patient does drink about 3-4 alcoholic beverages daily. On the CT scan there was no evidence of free intraperitoneal gas or any organized abscess. There was a small volume of ascites. She was admitted to the hospitalist service and started on PPI. GI consulted and scheduled her for EGD and colonoscopy today. Nephrology also consulted for the hyponatremia, which has improved with a sodium of 125 today. During her EGD, she was found to have a perforation in the antrum of the stomach anteriorly. Colonoscopy was cancelled. GI consulted our services for the perforated gastric ulcer. She is now seen in endoscopy. Per nursing, she was vomiting during the EGD and there were concerns for aspiration. They ordered a chest x-ray that showed mid and lower lung pulmonary opacities with volume loss that likely represent atelectasis, aspiration not excluded. Also seen is large pneumoperitoneum, which was following the endoscopy. She has required oxygen after the EGD, but this h
--- NOTE | 2023-06-25 15:17 | SUR.PHASEII ---
Called and spoke with Dr. Chaves regarding patient vitals and pain level at this time. Patient complains of pain /, and wheezing feeling like she needs to cough something up but cant. Vitals currently BP 124/73, O2 88% on 4L, HR 133. Per Dr. Chaves order albuterol tx for patient and give O2 as needed to keep sats >90%. Respiratory notified and coming with tx.
[2023-06-25] MEDS: ALBUTEROL SULFATE NEB 2.5 MG/3 ML INH INHALATION (15:28)
--- NOTE | 2023-06-25 15:30 | SUR.PHASEII ---
Report given to JOAQUIN Anand. Patient going back to room 204-1 before surgery per warehouse operations associate.
--- NOTE | 2023-06-25 15:41 | PM.IMPN ---
Progress Note: A&P Assessment and Plan (1) Colitis: Code(s): K52.9 - Noninfective gastroenteritis and colitis, unspecified Status: Acute Assessment and Plan: Patient presented with diffuse abdominal pain CT demonstrates colitis infectious versus inflammatory; she has a hx of GI symptoms so consider IBD. She was started on empiric antibiotic therapy with Rocephin and Flagyl C diff and Stool culture pending GI consulted and appreciated their input. Clear liquid diet started. Continue IV fluids Colonoscopy planned for today Pt on iv Dilaudid requesting pain meds i will switch to oral med (2) Gastric ulcer: Qualifiers: Gastric ulcer chronicity: acute Gastric ulcer complication status: without hemorrhage or perforation Qualified Code(s): K25.3 - Acute gastric ulcer without hemorrhage or perforation Code(s): K25.9 - Gastric ulcer, unspecified as acute or chronic, without hemorrhage or perforation Status: Acute Assessment and Plan: Possible gastric ulcer noted on imaging. Possibly related to tobaaco and alcohol use with recent ibuprofen use Received 1 dose of Protonix 80 mg IV in the ER and started on b.i.d. Protonix EGD planned for today (3) Acute hyponatremia: Code(s): E87.1 - Hypo-osmolality and hyponatremia Status: Acute Assessment and Plan: Sodium 118 on admission Treated with IV fluids. Nephrology consulted and appreciate their input 6-8mmol in past 24 hour Sodium has improved to 125 (4) Acute hypokalemia: Code(s): E87.6 - Hypokalemia Status: Acute Assessment and Plan: Potassium 2.8 on admission but normal now after rpelacement Continue to replace with potassium K today was 3.3 (5) Chronic alcohol abuse: Code(s): F10.10 - Alcohol abuse, uncomplicated Status: Acute Assessment and Plan: Patient with chronic alcohol abuse. Thiamine and and folate added. [facility] protocol Ativan and Librium available for s/sx of withdrawal. (6) Megaloblastic anemia: Code(s): D53.1 - Other megaloblastic anemias, not elsewhere classified Status: Acute Assessment and Plan: B12 and folate normal. Folate low end of normal but now on replacement Related to underlying liver disease from her alcoholism (7) Ascites: Code(s): R18.8 - Other ascites Status: Acute Assessment and Plan: The patient does have ascites noted on CT. This could be due to inflammation from the colitis and/or underlying hepatic dysfunction Consider also malignancy. Paracentesis if sufficient amount of fluid can be obtained. (8) Obesity (BMI 30.0-34.9): Code(s): E66.9 - Obesity, unspecified Status: Acute Assessment and Plan: The patient does have snoring he reports that she takes naps daily and sometimes falls asleep at her desk at work. She would benefit from outpatient polysomnogram. (9) Cardiac murmur: Code(s): R01.1 - Cardiac murmur, unspecified Status: Acute Assessment and Plan: Patient with heart murmur on exam but denies any significant symptoms. This could be evaluated as outpatient if she becomes symptomatic. Plan DVT prophyalxis - SCDs Code statu s- Full Subjective Date/time seen: 06/25/23 15:41 Interval history: 53yo female with alcoholism, IBS and HTN here for left shoulder adn abdominal pain and found to have colitis and possible peptic ulcer. Pt going for EGD and colonoscopy today Pt complains of pains in her abdomen and left shoulder Pt states she drinks 3 vodkas everyday Review of Systems Review of Systems: Some diffuse pains in abdomen and left shoulder Exam Narrative: Gen - tired and weak middle aged lady Chest - clear CV - RRR S1/S2. T Abd - Soft, some diffuse abdominal pains across her belly and epigastric area Ext - No pedal edema Psych - Nml mood and affect Skin - Warm and dry Obje
[2023-06-25] MEDS: PIPERACILLN/TAZ 3.375GM/NS50ML 3.375 GM/50 ML BAG IVPB (16:19)
[2023-06-25] MEDS: FLUCONAZOLE 100 MG/NACL 50 ML 100 MG/50 ML BTL 50 MG IVPB (16:19)
[2023-06-25 16:43] LABS: Creatinine, Random Urine 57 mg/dL (20-275); Total Protein/Creatinine Ratio 368 mg/g creat (24-184)
[2023-06-25 17:54] LABS: Alpha 1 Globulin 0.4 g/dL (0.2-0.3); Alpha 2 Globulin 0.5 g/dL (0.5-0.9); Beta 1 Globulin 0.3 g/dL (0.4-0.6); Gamma Globulin 0.5 g/dL (0.8-1.7)
--- NOTE | 2023-06-25 20:17 | WPDANESEPPF ---
Anes - Initial Pre Proc Eval Procedure: Operation Date: 06/25/23 14:00 Proposed Procedures p Esophagogastroduodenoscopy & Colonoscopy - Prashanth Rivera MD Operation Date: 06/25/23 18:15 Proposed Procedures p Exploratory Laparotomy, Gastric Ulcer Repair - Atilio Castro MD Date/Time: 06/25/23 20:17 Surgeon: Nora Luu MD Pre Op Diagnosis: Colitis/Gastric Ulcer/Hyponatremia Patient Data Age: 53 Gender: F Height: 1.57 m Weight: 77.8 kg Last Vital Signs Temp 36.4 C 06/25/23 19:45 Pulse 115 H 06/25/23 19:45 Resp 22 H 06/25/23 19:45 BP 109/52 L 06/25/23 19:45 Pulse Ox 95 06/25/23 19:45 O2 Del Method Nasal Cannula 06/25/23 16:00 O2 Flow Rate 6 06/25/23 16:00 Allergies Allergy/AdvReac Type Severity Reaction Status Date / Time No Known Allergies Allergy Mild Verified 06/25/23 12:18 Home Medications Medication Instructions Recorded Confirmed Type acetaminophen 325 mg tablet 650 mg PO Q6H PRN Pain 06/23/23 06/23/23 History chlorpheniramine maleate 4 mg 4 mg PO Q4H PRN Allergy Symptoms 06/23/23 06/23/23 History tablet cholecalciferol (vitamin D3) 50 2,000 unit PO DAILY 06/23/23 06/23/23 History mcg (2,000 unit) capsule estradiol 2 mg tablet 2 mg PO DAILY 06/23/23 06/23/23 History ferrous sulfate 325 mg (65 mg 325 mg PO DAILY 06/23/23 06/23/23 History iron) tablet ibuprofen 200 mg tablet 400 mg PO BID PRN Pain 06/23/23 06/23/23 History losartan 100 1 tablet PO HS 06/23/23 06/24/23 History mg-hydrochlorothiazide 25 mg tablet Laboratory Tests 06/24/23 06/24/23 06/24/23 04:30 08:21 09:48 WBC RBC Hgb Hct MCV MCH MCHC RDW Plt Count MPV Immature Gran % (Auto) Neut % (Auto) Lymph % (Auto) [place] % (Auto) Eos % (Auto) Baso % (Auto) Lymph # (Auto) [place] # (Auto) Eos # (Auto) Baso # (Auto) Abs Immat Gran (auto) Absolute Neuts (auto) Absolute Nucleated RBC Total Counted Neutrophils % (Manual) Band Neutrophils % Lymphocytes % (Manual) Monocytes % (Manual) Nucleated RBC % Abs Neuts (Manual) Abs Lymphs (Manual) Abs Monocytes (Manual) Platelet Estimate Schistocytes Sodium Potassium Chloride Carbon Dioxide Anion Gap BUN Creatinine Estim Creat Clear Calc Estimated GFR Glucose Serum Osmolality 258 L mOsm/kg (278-305) Calcium Phosphorus Magnesium C-Reactive Protein Total Protein 4.9 L g/dL (6.1-8.1) Albumin 3.0 L g/dL (3.8-4.8) Snsoc-3-Hrquzwltl 0.4 H g/dL (0.2-0.3) Tzops-7-Ikrqoyqql 0.5 g/dL (0.5-0.9) Qwkp-9-Vrahgpyp 0.3 L g/dL (0.4-0.6) Gquy-0-Xeosyotp 0.2 g/dL (0.2-0.5) Gamma Globulins 0.5 L g/dL (0.8-1.7) PEP Interpretation See note Urine Osmolality 276 mOsm/kg (50-1200) Ur Random Creatinine 57 mg/dL (20-275) U Random Total Protein 21 mg/dL (5-24) Protein/Creatinin Ratio 368 H mg/g creat (24-184) [place]/Lambda Ratio 1.37 (0.26-1.65) Free [place] Light Chains 17.9 mg/L (3.3-19.4) Free Lambda Light Chain 13.1 mg/L (5.7-26.3) 06/24/23 06/25/23 06/25/23 22:59 04:06 10:34 WBC 9.7 K/mm3 (4.5-10.0) RBC 2.69 L M/mm3 (4.2-5.4) Hgb 10.3 L g/dL (12.0-15.0) Hct 29.5 L % (37.0-47.0) MCV 109.7 H fl (80-100) MCH 38.3 H pg (26-34)
--- NOTE | 2023-06-25 20:18 | PC.NURSE ---
pt. taken to OR for surgery. consent signed and in chart.
[2023-06-25] MEDS: LIDO 1%/EPINEPHRINE 1:100,000 50 ML VIAL 30 ML INFILTRATE (22:12)
[2023-06-25] MEDS: BUPivacaine HCL 0.5% 10 ML AMP 30 ML INFILTRATE (22:13)
[2023-06-25] MEDS: SODIUM CHLORIDE 0.9% IV 500 ML 30 ML IV CONT (22:30)
--- NOTE | 2023-06-25 22:36 | PM.OP ---
Procedure Note - Brief Procedure Note - Brief Date of procedure: 06/25/23 Colitis/Gastric Ulcer/Hyponatremia, perforated gastric antral ulcer Post-op diagnosis: Same Procedure performed: Exp lap, repair antral gastric ulcer with modified omental Cheo patch. Surgeon: Atilio Castro MD Anesthesia: GETA Implants: None Estimated blood loss (mL): 50 Urine output (mL): 400 Drains: Yes (15 FR OSCAR epigastric) Packing: No Pathology: None sent Complications: No immediate complications Condition: Stable Disposition: PACU
[2023-06-25] MEDS: fentaNYL CITRATE INJ (*CRX) 100 MCG/2 ML VIAL 25 MCG IV PUSH ×2 (23:15→23:21)
[2023-06-25] MEDS: diazePAM INJ (*CRX) 10 MG/2 ML SYRINGE 5 MG IV PUSH (23:54)
[2023-06-26] VITALS (22 sets, daily range): BP systolic 92–133; BP diastolic 64–78; PULSE 89–117; RESP 16–22; TEMP 36.1–36.6; O2SAT 66–100
[2023-06-26] MEDS: PIPERACILLN/TAZ 3.375GM/NS50ML 3.375 GM/50 ML BAG IVPB ×5 (00:01→23:54)
[2023-06-26] MEDS: MAG HYDROX/AL HYDROX/SIMETH 30 ML UDC PO ×4 (00:01→22:23)
[2023-06-26 05:06] LABS: Hematocrit 26.4 % (37.0-47.0); Hemoglobin 9.2 g/dL (12.0-15.0); Mean Corpuscular HGB Conc 34.8 g/dl (32-36); Mean Corpuscular Hemoglobin 38.7 pg (26-34); Mean Corpuscular Volume 110.9 fl (80-100); Mean Platelet Volume 9.7 fl (7.4-10.4); Platelet Count Result 248 k/mm3 (150-375); Red Blood Count 2.38 M/mm3 (4.2-5.4); Red Cell Distribution Width 12.6 % (11.5-14.5); White Blood Count 10.7 K/mm3 (4.5-10.0)
[2023-06-26 05:23] LABS: Alanine Aminotransferase 14 U/L (6-35); Alkaline Phosphatase 65 U/L (38-126); Anion Gap 8 mmol/L (4-12); Aspartate Amino Transferase 25 U/L (14-36); Bilirubin,Total 0.5 mg/dL (0.2-1.3); Blood Urea Nitrogen 6 mg/dL (7-17); Calcium 7.5 mg/dL (8.4-10.2); Carbon Dioxide 20 mmol/L (22-30); Chloride 104 mmol/L (98-107); Estimated CRCL calculation 81 ml/min; Estimated Glomerular Filt Rate > 60; Glucose 108 mg/dL (65-110); Potassium 3.2 mmol/L (3.4-5.0); Sodium 132 mmol/L (137-145)
[2023-06-26] MEDS: metroNIDAZOLE 500 MG/ISO 100ML 500 MG/100 ML BAG 100 MG IVPB ×3 (05:26→22:23)
[2023-06-26 05:53] LABS: Band Neutrophils Percent 17 % (0-6); Neutrophils Absolute Manual 10.59 K/mm3 (1.7-7.2); Neutrophils Percent Manual 82 % (46-73); Total Cells Counted 100
[2023-06-26 05:54] LABS: Hypochromasia 1+; Platelet Estimate Adequate (Adequate); Schistocytes None Seen
--- NOTE | 2023-06-26 08:38 | WPDANESPN ---
Anes - Prog Note Post-Op Date/Time: 06/26/23 08:38 Cardiovascular status: normal Respiratory status: normal Airway patency: baseline Mental status: baseline Post-Op hydration status: normal Vital Signs: Last Vital Signs Temp 36.6 C 06/26/23 08:00 Pulse 95 06/26/23 08:00 Resp 16 06/26/23 08:00 BP 131/72 06/26/23 08:00 Pulse Ox 100 06/26/23 08:00 O2 Del Method Nasal Cannula 06/26/23 08:00 O2 Flow Rate 3 06/26/23 08:00 Pain Score (VAS): 05/17 I/O: Intake & Output 06/25/23 06/26/23 06/26/23 23:59 07:59 15:59 Intake Total 1350 240 Output Total 410 65 Balance 940 175 Laboratory Tests 06/26/23 03:59 06/26/23 03:59 06/24/23 06/24/23 06/24/23 04:30 08:21 09:48 WBC RBC Hgb Hct MCV MCH MCHC RDW Plt Count MPV Immature Gran % (Auto) Neut % (Auto) Lymph % (Auto) [place] % (Auto) Eos % (Auto) Baso % (Auto) Lymph # (Auto) [place] # (Auto) Eos # (Auto) Baso # (Auto) Abs Immat Gran (auto) Absolute Neuts (auto) Absolute Nucleated RBC Total Counted Neutrophils % (Manual) Band Neutrophils % Lymphocytes % (Manual) Nucleated RBC % Abs Neuts (Manual) Abs Lymphs (Manual) Platelet Estimate Hypochromasia Schistocytes Sodium Potassium Chloride Carbon Dioxide Anion Gap BUN Creatinine Estim Creat Clear Calc Estimated GFR Glucose Serum Osmolality 258 L Calcium Total Bilirubin AST ALT Alkaline Phosphatase Total Protein Albumin 3.0 L Dnttp-2-Uuohxfiec 0.4 H Xsufo-9-Hgqkpqcfn 0.5 Baun-7-Nolerjkt 0.3 L Uivi-9-Ywrzsoci 0.2 Gamma Globulins 0.5 L PEP Interpretation See note Urine Osmolality 276 Ur Random Creatinine 57 U Random Total Protein 21 Protein/Creatinin Ratio 368 H [place]/Lambda Ratio 1.37 Free [place] Light Chains 17.9 Free [place]ambda Light Chain 13.1 06/25/23 06/26/23 10:34 03:59 WBC 10.7 H RBC 2.38 L Hgb 9.2 L Hct 26.4 L MCV 110.9 H MCH 38.7 H MCHC 34.8 RDW 12.6 Plt Count 248 MPV 9.7 Immature Gran % (Auto) Not Reportable Neut % (Auto) Not Reportable Lymph % (Auto) Not Reportable [place] % (Auto) Not Reportable Eos % (Auto) Not Reportable Baso % (Auto) Not Reportable Lymph # (Auto) Not Reportable [place] # (Auto) Not Reportable Eos # (Auto) Not Reportable Baso # (Auto) Not Reportable Abs Immat Gran (auto) Not Reportable Absolute Neuts (auto) Not Reportable Absolute Nucleated RBC Not Reportable Total Counted 100 Neutrophils % (Manual) 82 H Band Neutrophils % 17 H Lymphocytes % (Manual) 1.0 L Nucleated RBC % Not Reportable Abs Neuts (Manual) 10.59 H Abs Lymphs (Manual) 0.10 L Platelet Estimate Adequate Hypochromasia 1+ Schistocytes None seen Sodium 125 L 132 L Potassium 3.2 L Chloride 104 Carbon Dioxide 20 L Anion Gap 8 BUN 6 L Creatinine 0.70 Estim Creat Clear Calc 81 Estimated GFR > 60 Glucose 108 Serum Osmolality Calcium 7.5 L Total Bilirubin 0.5 AST 25 ALT 14 Alkaline Phosphatase 65 Total Protein 5.0 L Albumin 3.0 L Umaox-3-Gqsenqjpl Sghgz-4-Kkfgvqemf Sfjp-2-Swhvkath Kjax-5-Wntddhvb Gamma Globulins PEP Interpretation Urine Osmolality Ur Random Creatinine U Random Total Protein Protein/Creatinin Ratio [place]/Lambda Ratio Free [place] Light Chains Free Lambda Light Chain Post-procedural complaints: none Patient Feedback: Patient satisfied with anesthetic care.
[2023-06-26] MEDS: ENOXAPARIN 40 MG/0.4 ML SYRINGE SUB-Q (08:57)
[2023-06-26] MEDS: diazePAM INJ (*CRX) 10 MG/2 ML SYRINGE 5 MG IV PUSH ×2 (08:57→20:42)
[2023-06-26] MEDS: PANTOPRAZOLE SODIUM IV 40 MG VIAL IV PUSH ×2 (08:58→20:42)
[2023-06-26] MEDS: FLUCONAZOLE 100 MG/NACL 50 ML 100 MG/50 ML BTL 50 MG IVPB (08:58)
[2023-06-26] MEDS: HYDROmorphone HCL INJ (*CRX) 1 MG/ML SYR IV PUSH ×2 (12:25→20:42)
--- NOTE | 2023-06-26 12:32 | W.PM.PROC2 ---
Procedure Note - Detailed Date of Procedure 06/25/23 Pre-op Diagnosis Perforated gastric ulcer Post-op Diagnosis Same (Perforated anterior antral gastric wall ulcer) Procedure Performed Exploratory laparotomy with repair of perforated gastric antral ulcer with modified omentum Cheo patch Surgeon Atilio Castro MD Anesthesia General Indications patient is a 53-year-old female who admitted to the hospital 2 days ago with epigastric abdominal pain. CT scan at that time showed a gastric ulcer in the antrum without evidence of perforation at that time. She then underwent a EGD performed by Dr. Ortega in endoscopy yesterday. During that procedure Dr. Ortega noticed that there was a perforation in the ulcer. He did not biopsy the ulcer. The patient has had a recent history of alcohol use and heavy NSAID use. She is being brought to the operating now for emergent exploratory laparotomy and repair of the perforated gastric ulcer. Findings The patient had a 1cm defect in the anterior wall of the antrum of the stomach just proximal to the pylorus. There was spillage of gastric contents into the upper portion of the abdomen. No abscesses were seen. Description of Procedure After informed consent was obtained patient brought to the operating room she was placed supine position and general endotracheal anesthesia was administered. A nasogastric tube was placed as well as a Almaraz catheter. The abdomen was then prepped and draped usual sterile fashion. A time-out was then performed correctly identifying the patient as well as procedure to be performed. He was verified she was already on scheduled IV antibiotics. I then made a midline incision starting just below the xiphoid and extending it to the mid epigastric region. Dissection was carried down through the subcutaneous tissues electrocautery and then the midline fascia was divided utilizing electrocautery to gain entrance into the abdomen. Once the peritoneum was opened there was a [place] of pneumoperitoneum which was decompressed. The pneumoperitoneum was mostly due to the air insufflated during the endoscopy. Once I had the incision opened matched the length the skin incision I then placed a bowel for retractor to aid with visualization. Upon lifting up the left lobe of the liver easily find the defect in the anterior wall the antrum of the stomach. It measured about 1cm in diameter. There was drainage of gastric contents which was mostly bilious fluid but no of particulate matter. I then decided to primarily close the defect with placement of interrupted 3-0 pre PDS sutures. The defect was closed easily with these 4 sutures without tension. I then buttressed the repair with placement of a tongue of omentum for a modified Cheo patch. The midportion of the omentum was then divided to create a flap utilizing a LigaSure energy device. The omental flap was then flipped up cephalad and placed over the closed defect and then secured in place with 3-0 silk sutures to the anterior wall the stomach. I then irrigated out the left and right upper quadrants of the abdomen as well as the subphrenic space bilaterally. I checked and the omentum was viable and not bleeding. There was no further spillage of any bilious fluid from the close perforation. I then placed a 15 Tamazight round Thomas drain into the epigastric region near the area the repair and brought out through the left upper quadrant of the abdominal wall. It was secured with a 3-0 nylon suture. I then closed the midline fascia utilizing a looped 1. PDS suture started at each end incision. These were then run out to the Med each other in the middle and tied together. I injected 1% lidocaine mixed with 0.5% Marcaine with some epinephrine in the subcutaneous tissues around the incision. Incision was irrigated sterile saline solution hemostasis was good. I then closed the subcu tissues with multiple layers of interrupted and running 3-0 Vicryl sutu
--- NOTE | 2023-06-26 12:53 | P.PNNP_ITS ---
Progress Note: A&P Assessment and Plan (1) Acute hyponatremia: Code(s): E87.1 - Hypo-osmolality and hyponatremia Status: Acute Assessment and Plan: * improving with current therapy/interventions * presumably acute (but no previous labs to compare) * improvement noted with gentle normal saline IVFs * this argues in favor of hypovolemia as etiology of low sodium * history of alcohol as well as HCTZ use may be contributing factors * evaluation to date: * TSH okay * cortisol in range * urine electroltyes prerenal * SPEP/UPEP and serum/urine osmolality pending * follow serial sodium levels (2) Acute hypokalemia: Code(s): E87.6 - Hypokalemia Status: Acute Assessment and Plan: * due to poor oral intake, NPO status and GI symptoms prior to admission * replete as needed (3) Perforated gastric ulcer: Code(s): K25.5 - Chronic or unspecified gastric ulcer with perforation Status: Acute Assessment and Plan: * incidently found during EGD on 06/24 * s/p exploratory laparotomy with repair of perforated gastric antral ulcer with modified omentum Cheo patch by Surgery (on 06/24) * remains on IV protonix * NG in place and NPO * advance diet as tolerated * GI and Surgery following (4) Colitis: Code(s): K52.9 - Noninfective gastroenteritis and colitis, unspecified Status: Acute Assessment and Plan: * as noted by admission imaging * follow culture data * on antibiotics Will continue to follow. Subjective Date/time seen: 06/26/23 12:53 Interval history: Follow-up for acute hyponatremia. Unable to see yesterday due to procedures; events noted yesterday -- EGD done with findings of gastric ulcer and associated perforation; colonoscopy canceled and Surgery consulted; taken to OR with subsequent repair of perforated gastric ulcer and tolerated this procedure fairly well. Exam Narrative: General: middle aged female in NAD Heart: normal S1 and S2; no rub Lungs: clear to auscultation Abdomen: soft, with mild TTP, hypoactive bowel sounds; incision c/d/i Extremities: no cyanosis or clubbing; no edema Skin: warm and dry Objective Data Vital Signs Vital Signs: Vital Signs Temp Pulse Resp BP Pulse Ox O2 Del Method O2 Flow Rate 06/26/23 12:00 96 16 96 Room Air 06/26/23 12:00 96 06/26/23 10:00 117 H 06/26/23 10:02 96 Room Air 06/26/23 08:00 90 06/26/23 08:58 100 Nasal Cannula 3 06/26/23 08:00 97.8 F 95 16 131/72 100 06/26/23 08:00 95 16 100 Nasal Cannula 3 06/26/23 06:00 94 06/26/23 04:00 89 22 H 98 Nasal Cannula 3 06/26/23 04:00 133/66 06/26/23 04:00 89 06/26/23 02:00 106 H 06/26/23 03:31 97.3 F L 101 H 22 H 133/66 98 06/26/23 02:28 97.0 F L 92/77 L 06/26/23 01:31 121/78 06/25/23 23:30 106 H 22 H 94 Nasal Cannula 3 06/25/23 23:30 133/71 06/25/23 23:30 106 H 06/26/23 00:28 97.1 F L 133/71 06/26/23 00:13 130/77 06/25/23 23:42 97.7 F 106 H 22 H 137/69 94 06/25/23 23:27 113 H 16 148/87 H 94 Nasal Cannula 3 06/25/23 23:15 97.8 F 113 H 16 125/84 94 Nasal Cannula 3
--- NOTE | 2023-06-26 12:53 | PM.PNNEP ---
Progress Note: A&P Assessment and Plan (1) Acute hyponatremia: Code(s): E87.1 - Hypo-osmolality and hyponatremia Status: Acute Assessment and Plan: improving with current therapy/interventions presumably acute (but no previous labs to compare) improvement noted with gentle normal saline IVFs this argues in favor of hypovolemia as etiology of low sodium history of alcohol as well as HCTZ use may be contributing factors evaluation to date: TSH okay cortisol in range urine electroltyes prerenal SPEP/UPEP and serum/urine osmolality pending follow serial sodium levels (2) Acute hypokalemia: Code(s): E87.6 - Hypokalemia Status: Acute Assessment and Plan: due to poor oral intake, NPO status and GI symptoms prior to admission replete as needed (3) Perforated gastric ulcer: Code(s): K25.5 - Chronic or unspecified gastric ulcer with perforation Status: Acute Assessment and Plan: incidently found during EGD on 06/24 s/p exploratory laparotomy with repair of perforated gastric antral ulcer with modified omentum Cheo patch by Surgery (on 06/24) remains on IV protonix NG in place and NPO advance diet as tolerated GI and Surgery following (4) Colitis: Code(s): K52.9 - Noninfective gastroenteritis and colitis, unspecified Status: Acute Assessment and Plan: as noted by admission imaging follow culture data on antibiotics Will continue to follow. Subjective Date/time seen: 06/26/23 12:53 Interval history: Follow-up for acute hyponatremia. Unable to see yesterday due to procedures; events noted yesterday -- EGD done with findings of gastric ulcer and associated perforation; colonoscopy canceled and Surgery consulted; taken to OR with subsequent repair of perforated gastric ulcer and tolerated this procedure fairly well. Exam Narrative: General: middle aged female in NAD Heart: normal S1 and S2; no rub Lungs: clear to auscultation Abdomen: soft, with mild TTP, hypoactive bowel sounds; incision c/d/i Extremities: no cyanosis or clubbing; no edema Skin: warm and dry Objective Data Vital Signs Vital Signs: Vital Signs Temp Pulse Resp BP Pulse Ox O2 Del Method O2 Flow Rate 06/26/23 12:00 96 16 96 Room Air 06/26/23 12:00 96 06/26/23 10:00 117 H 06/26/23 10:02 96 Room Air 06/26/23 08:00 90 06/26/23 08:58 100 Nasal Cannula 3 06/26/23 08:00 97.8 F 95 16 131/72 100 06/26/23 08:00 95 16 100 Nasal Cannula 3 06/26/23 06:00 94 06/26/23 04:00 89 22 H 98 Nasal Cannula 3 06/26/23 04:00 133/66 06/26/23 04:00 89 06/26/23 02:00 106 H 06/26/23 03:31 97.3 F L 101 H 22 H 133/66 98 06/26/23 02:28 97.0 F L 92/77 L 06/26/23 01:31 121/78 06/25/23 23:30 106 H 22 H 94 Nasal Cannula 3 06/25/23 23:30 133/71 06/25/23 23:30 106 H 06/26/23 00:28 97.1 F L 133/71 06/26/23 00:13 130/77 06/25/23 23:42 97.7 F 106 H 22 H 137/69 94 06/25/23 23:27 113 H 16 148/87 H 94 Nasal Cannula 3 06/25/23 23:15 97.8 F 113 H 16 125/84 94 Nasal Cannula 3 06/25/23 23:00 116 H 18 133/81 93 Nasal Cannula 4 06/25/23 22:55 98 Nasal Cannula 4 06/25/23 22:45 113 H 12 125/73 95 Simple Face Mask 6 06/25/23 22:30 98.6 F 105 H 12 108/69 95 Simple Face Mask 6 06/25/23 20:00 118 H 22 H 95 Nasal Cannula 6 06/25/23 20:00 109/52 L 06/25/23 20:00 118 H 06/25/23 19:45 97.6 F 115 H 22 H 109/52 L 95 06/25/23 17:58 117 H 06/25/23 16:00 123 H 91 Nasal Cannula 6 06/25/23 16:00 134 H 06/25/23 15:51 98.9 F 139 H 22 H 116/68 100 06/25/23 15:34 128 H 26 H 126/72 95 Nasal Cannula 6 06/25/23 15:34 131 H 27 H 06/25/23 15:25 125 H 19 06/25/23 14:57 141 H 22 H 148/
--- NOTE | 2023-06-26 14:22 | PC.NURSE ---
On 06/26/23, the student, [Andrews العلي ], provided care and completed [facility] documentation on this patient. I have reviewed the student's documentation and agree with the findings.
--- NOTE | 2023-06-26 14:29 | PCCCNOTE ---
On 06/26/23, the student, Eden Choudhury, provided care and completed [facility] documentation on this patient. I have reviewed the student's documentation and agree with the findings.
--- NOTE | 2023-06-26 14:37 | WPDGIPROGNO ---
Progress Note: A&P Assessment and Plan (1) Perforated gastric ulcer: Code(s): K25.5 - Chronic or unspecified gastric ulcer with perforation Status: Acute Assessment and Plan: found yesterday when I performed EGD- then taken to OR she is already feeling much better IV protonix diet per surgery will need EGD in 3-4 months (I did not take biopsies yesterday because of perforated ulcer and colonoscopy was also canceled) (2) Epigastric pain: Code(s): R10.13 - Epigastric pain Status: Acute Assessment and Plan: slowly improving (3) Chronic alcohol abuse: Code(s): F10.10 - Alcohol abuse, uncomplicated Status: Acute (4) Acute hyponatremia: Code(s): E87.1 - Hypo-osmolality and hyponatremia Status: Acute (5) NSAID long-term use: 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 OSCAR drain) and No Guarding due to palpation present (GI) Skin: General skin exam: normal color Neuro: Speech: normal speech Motor exam (neuro): 5/5 motor strength present throughout Extrem: General: normal to inspection Psych: Affect: normal affect Objective Data Vital Signs Vital Signs: Vital Signs - 24 hr 06/25/23 14:47 06/25/23 14:57 06/25/23 15:25 Temperature Pulse Rate 116 H 141 H 125 H Respiratory Rate 18 22 H 19 Blood Pressure 118/63 148/114 H Pulse Oximetry 91 90 Oxygen Delivery Nasal Cannula Nasal Cannula Oxygen Flow Rate 4 4 06/25/23 15:34 06/25/23 15:34 06/25/23 15:51 Temperature 98.9 F Pulse Rate 131 H 128 H 139 H Respiratory Rate 27 H 26 H 22 H Blood Pressure 126/72 116/68 Pulse Oximetry 95 100 Oxygen Delivery Nasal Cannula Oxygen Flow Rate 6 06/25/23 16:00 06/25/23 16:00 06/25/23 17:58 Temperature Pulse Rate 134 H 123 H 117 H Respiratory Rate Blood Pressure Pulse Oximetry 91 Oxygen Delivery Nasal Cannula Oxygen Flow Rate 6 06/25/23 19:45 06/25/23 20:00 06/25/23 20:00 Temperature 97.6 F Pulse Rate 115 H 118 H Respiratory Rate 22 H Blood Pressure 109/52 L 109/52 L Pulse Oximetry 95 Oxygen Delivery Oxygen Flow Rate 06/25/23 20:00 06/25/23 22:30 06/25/23 22:45 Temperature 98.6 F Pulse Rate 118 H 105 H 113 H Respiratory Rate 22 H 12 12 Blood Pressure 108/69 125/73 Pulse Oximetry 95 95 95 Oxygen Delivery Nasal Cannula Simple Face Mask Simple Face Mask Oxygen Flow Rate 6 6 6 06/25/23 22:55 06/25/23 23:00 06/25/23 23:15 Temperature 97.8 F Pulse Rate 116 H 113 H Respiratory Rate 18 16 Blood Pressure 133/81 125/84 Pulse Oximetry 98 93 94 Oxygen Delivery Nasal Cannula Nasal Cannula Nasal Cannula Oxygen Flow Rate 4 4 3 06/25/23 23:27 06/25/23 23:42 06/26/23 00:13 Temperature 97.7 F Pulse Rate 113 H 106 H Respiratory Rate 16 22 H Blood Pressure 148/87 H 137/69 130/77 Pulse Oximetry 94 94 Oxygen Delivery Nasal Cannula Oxygen Flow Rate 3 06/26/23 00:28 06/25/23 23:30 06/25/23 23:30 Temperature 97.1 F L Pulse Rate 106 H Respiratory Rate Blood Pressure 133/71 133/71 Pulse Oximetry Oxygen Delivery Oxygen Flow Rate 06/25/23 23:30 06/26/23 01:31 06/26/23 02:28 Temperature 97.0 F L Pulse Rate 106 H Respiratory Rate 22 H Blood Pressure 121/78 92/77 L Pulse Oximetry 94 Oxygen Delivery Nasal Cannula Oxygen Flow Rate 3
--- NOTE | 2023-06-26 14:48 | PM.IMPN ---
Progress Note: A&P Assessment and Plan (1) Colitis: Code(s): K52.9 - Noninfective gastroenteritis and colitis, unspecified Status: Acute Assessment and Plan: Patient presented with diffuse abdominal pain CT demonstrates colitis infectious versus inflammatory; she has a hx of GI symptoms so consider IBD. She was started on empiric antibiotic therapy with zosyn and flagyl (2) Gastric ulcer: Qualifiers: Gastric ulcer chronicity: acute Gastric ulcer complication status: without hemorrhage or perforation Qualified Code(s): K25.3 - Acute gastric ulcer without hemorrhage or perforation Code(s): K25.9 - Gastric ulcer, unspecified as acute or chronic, without hemorrhage or perforation Status: Inactive Assessment and Plan: Possible gastric ulcer noted on imaging. Possibly related to tobaaco and alcohol use with recent ibuprofen use Received 1 dose of Protonix 80 mg IV in the ER and started on b.i.d. Protonix Pt went to OR for perforated gastric ulcer pt is NPO with NG tube and IV fluids (3) Acute hyponatremia: Code(s): E87.1 - Hypo-osmolality and hyponatremia Status: Acute Assessment and Plan: Sodium 118 on admission Treated with IV fluids. Nephrology consulted and appreciate their input 6-8mmol in past 24 hour Sodium has improved to 132 (4) Acute hypokalemia: Code(s): E87.6 - Hypokalemia Status: Acute Assessment and Plan: Potassium 2.8 on admission but normal now after rpelacement Continue to replace with potassium K today was 3.2 (5) Chronic alcohol abuse: Code(s): F10.10 - Alcohol abuse, uncomplicated Status: Acute Assessment and Plan: Patient with chronic alcohol abuse. Thiamine and and folate added. [facility] protocol Ativan and Librium available for s/sx of withdrawal. (6) Megaloblastic anemia: Code(s): D53.1 - Other megaloblastic anemias, not elsewhere classified Status: Acute Assessment and Plan: B12 and folate normal. Folate low end of normal but now on replacement Related to underlying liver disease from her alcoholism (7) Ascites: Code(s): R18.8 - Other ascites Status: Acute Assessment and Plan: The patient does have ascites noted on CT. This could be due to inflammation from the colitis and/or underlying hepatic dysfunction Consider also malignancy. Paracentesis if sufficient amount of fluid can be obtained. (8) Obesity (BMI 30.0-34.9): Code(s): E66.9 - Obesity, unspecified Status: Acute Assessment and Plan: The patient does have snoring he reports that she takes naps daily and sometimes falls asleep at her desk at work. She would benefit from outpatient polysomnogram. (9) Cardiac murmur: Code(s): R01.1 - Cardiac murmur, unspecified Status: Acute Assessment and Plan: Patient with heart murmur on exam but denies any significant symptoms. This could be evaluated as outpatient if she becomes symptomatic. Subjective Date/time seen: 06/26/23 14:48 Interval history: 53yo female with alcoholism, IBS and HTN here for left shoulder adn abdominal pain and found to have colitis and possible peptic ulcer. Pt complains of pains in her abdomen and left shoulder Pt states she drinks 3 vodkas everyday Unfortunately pt had to go to OR for perforated gastric ulcer Pt is Npo with Ng tube in situ and iv fluids Review of Systems Review of Systems: Sp surgery Exam Narrative: Gen - tired and weak middle aged lady with NG tube in situ Chest - clear CV - RRR S1/S2. T Abd - sp perforated ulcer surgery Ext - No pedal edema Psych - Nml mood and affect Skin - Warm and dry Objective Data Vital Signs Vital Signs: Vital Signs - 24 hr 06/25/23 14:57 06/25/23 15:25 06/25/23 15:34 Temperature Pulse Rate 141 H 125 H 131 H Respiratory Rate 22 H 19 27 H Blood Press
--- NOTE | 2023-06-26 15:03 | PC.NURSE ---
On 06/26/23, the student, [Andrews ], provided care and completed [facility] documentation on this patient. I have reviewed the student's documentation and agree with the findings.
--- NOTE | 2023-06-26 15:56 | PM.PNGS ---
Progress Note: A&P Assessment and Plan (1) Perforated gastric ulcer: Code(s): K25.5 - Chronic or unspecified gastric ulcer with perforation Status: Acute Assessment and Plan: Postop day 1 following repair of gastric ulcer. Continue NG tube decompression, bowel rest, IV fluids. Continue Mylanta Q8H through NG. Continue IV Zosyn and Diflucan. Increase activity as tolerated, up to the chair. Plan I have discussed the patient's case and plan of care with Dr. Castro. Subjective Subjective Date/Time Seen: 06/26/23 15:56 Patient reports: no new complaints, feels better, pain is less, voiding w/o difficulty, no flatus, no bowel movement and afebrile Interval history: Patient seen today in the IMU. She reports feeling much better than she did before surgery. Her abdominal pain is much better, and now abdominal pain is in the upper abdomen and near incision. No nausea. She was able to get up to the commode and also since the chair for a while today. She tolerated this well. Tachycardia improved. Exam Const: General: comfortable and no acute distress GI: Inspection: other (Mildly distended) GI Palp: Yes Soft to palpation, Yes Tenderness to palpation present (GI) (Mild tenderness in the right upper quadrant and near her incision), No Guarding due to palpation present (GI), No Rebound tenderness present and Yes Other GI palpation findings present (OSCAR drain with cloudy serosanguineous drainage) Auscultation: Hypoactive bowel sounds present Objective Data Vital Signs Vital Signs: Vital Signs - 24 hr 06/25/23 16:00 06/25/23 16:00 06/25/23 17:58 Temperature Pulse Rate 134 H 123 H 117 H Respiratory Rate Blood Pressure Pulse Oximetry 91 Oxygen Delivery Nasal Cannula Oxygen Flow Rate 6 06/25/23 19:45 06/25/23 20:00 06/25/23 20:00 Temperature 97.6 F Pulse Rate 115 H 118 H Respiratory Rate 22 H Blood Pressure 109/52 L 109/52 L Pulse Oximetry 95 Oxygen Delivery Oxygen Flow Rate 06/25/23 20:00 06/25/23 22:30 06/25/23 22:45 Temperature 98.6 F Pulse Rate 118 H 105 H 113 H Respiratory Rate 22 H 12 12 Blood Pressure 108/69 125/73 Pulse Oximetry 95 95 95 Oxygen Delivery Nasal Cannula Simple Face Mask Simple Face Mask Oxygen Flow Rate 6 6 6 06/25/23 22:55 06/25/23 23:00 06/25/23 23:15 Temperature 97.8 F Pulse Rate 116 H 113 H Respiratory Rate 18 16 Blood Pressure 133/81 125/84 Pulse Oximetry 98 93 94 Oxygen Delivery Nasal Cannula Nasal Cannula Nasal Cannula Oxygen Flow Rate 4 4 3 06/25/23 23:27 06/25/23 23:42 06/26/23 00:13 Temperature 97.7 F Pulse Rate 113 H 106 H Respiratory Rate 16 22 H Blood Pressure 148/87 H 137/69 130/77 Pulse Oximetry 94 94 Oxygen Delivery Nasal Cannula Oxygen Flow Rate 3 06/26/23 00:28 06/25/23 23:30 06/25/23 23:30 Temperature 97.1 F L Pulse Rate 106 H Respiratory Rate Blood Pressure 133/71 133/71 Pulse Oximetry Oxygen Delivery Oxygen Flow Rate 06/25/23 23:30 06/26/23 01:31 06/26/23 02:28 Temperature 97.0 F L Pulse Rate 106 H Respiratory Rate 22 H Blood Pressure 121/78 92/77 L Pulse Oximetry 94 Oxygen Delivery Nasal Cannula Oxygen Flow Rate 3 06/26/23 03:31 06/26/23 02:00 06/26/23 04:00 Temperature 97.3 F L Pulse Rate 101 H 106 H 89 Respiratory Rate 22 H Blood Pressure 133/66 Pulse Oximetry 98 Oxygen Delivery Oxygen Flow Rate 06/26/23 04:00 06/26/23 04:00 06/26/23 06:00 Temperature Pulse Rate 89 94 Respiratory Rate 22 H Blood Pressure 133/66 Pulse Oximetry 98 Oxygen Delivery Nasal Cannula Oxygen Flow Rate 3 06/26/23 08:00 06/26/23 08:00 06/26/23 08:58 Temperature 97.8 F Pulse Rate 95 95 Respiratory Rate 16 16 Blood Pressure 131/72 Pulse Oximetry 100 100 100 Oxygen Delivery Nasal Cannula Nasal Cannula Oxygen Flow Rate 3 3 06/26/23 08:00 06/26/23 10:02 06/26/23 10:00 Temperature Pulse Rate 90 117
[2023-06-26] MEDS: HYDROmorphone HCL INJ (*CRX) 1 MG/ML SYR 0.5 MG IV PUSH (16:33)
[2023-06-26] MEDS: KCL 40 MEQ/WATER 100 ML 100 ML 25 ML IVPB (16:48)
[2023-06-27] VITALS (17 sets, daily range): BP systolic 133–151; BP diastolic 63–82; PULSE 99–135; RESP 17–18; TEMP 36.1–36.9; O2SAT 90–98
[2023-06-27] MEDS: PIPERACILLN/TAZ 3.375GM/NS50ML 3.375 GM/50 ML BAG IVPB ×3 (05:28→17:04)
[2023-06-27] MEDS: MAG HYDROX/AL HYDROX/SIMETH 30 ML UDC PO ×3 (05:29→21:44)
[2023-06-27] MEDS: metroNIDAZOLE 500 MG/ISO 100ML 500 MG/100 ML BAG 100 MG IVPB ×3 (05:29→21:44)
[2023-06-27 07:14] LABS: Hematocrit 28.3 % (37.0-47.0); Hemoglobin 9.6 g/dL (12.0-15.0); Mean Corpuscular HGB Conc 33.9 g/dl (32-36); Mean Corpuscular Hemoglobin 38.7 pg (26-34); Mean Corpuscular Volume 114.1 fl (80-100); Mean Platelet Volume 8.8 fl (7.4-10.4); Platelet Count Result 255 k/mm3 (150-375); Red Blood Count 2.48 M/mm3 (4.2-5.4); Red Cell Distribution Width 12.8 % (11.5-14.5); White Blood Count 14.1 K/mm3 (4.5-10.0)
[2023-06-27 07:26] LABS: Anion Gap 5 mmol/L (4-12); Blood Urea Nitrogen 5 mg/dL (7-17); Calcium 7.7 mg/dL (8.4-10.2); Carbon Dioxide 23 mmol/L (22-30); Chloride 106 mmol/L (98-107); Estimated CRCL calculation 79 ml/min; Estimated Glomerular Filt Rate > 60; Glucose 87 mg/dL (65-110); Potassium 3.6 mmol/L (3.4-5.0); Sodium 134 mmol/L (137-145)
[2023-06-27] MEDS: ENOXAPARIN 40 MG/0.4 ML SYRINGE SUB-Q (08:41)
[2023-06-27] MEDS: diazePAM INJ (*CRX) 10 MG/2 ML SYRINGE 5 MG IV PUSH ×2 (08:41→20:39)
[2023-06-27] MEDS: PANTOPRAZOLE SODIUM IV 40 MG VIAL IV PUSH ×2 (08:41→20:39)
--- NOTE | 2023-06-27 09:46 | P.PNNP_ITS ---
Progress Note: A&P Assessment and Plan (1) Acute hyponatremia: Code(s): E87.1 - Hypo-osmolality and hyponatremia Status: Acute Assessment and Plan: * improving with current therapy/interventions * presumably acute (but no previous labs to compare) * improvement noted with gentle normal saline IVFs * this argues in favor of hypovolemia as etiology of low sodium * history of alcohol as well as HCTZ use may be contributing factors * evaluation to date: * TSH okay * cortisol in range * urine electroltyes prerenal * SPEP/UPEP and serum/urine osmolality pending * follow serial sodium levels (2) Acute hypokalemia: Code(s): E87.6 - Hypokalemia Status: Acute Assessment and Plan: * due to poor oral intake, NPO status and GI symptoms prior to admission * replete as needed (3) Perforated gastric ulcer: Code(s): K25.5 - Chronic or unspecified gastric ulcer with perforation Status: Acute Assessment and Plan: * incidently found during EGD on 06/24 * s/p exploratory laparotomy with repair of perforated gastric antral ulcer with modified omentum Cheo patch by Surgery (on 06/24) * remains on IV protonix * NG in place and NPO * advance diet as tolerated * GI and Surgery following (4) Colitis: Code(s): K52.9 - Noninfective gastroenteritis and colitis, unspecified Status: Acute Assessment and Plan: * as noted by admission imaging * follow culture data * on antibiotics Not much else to add -- will continue to follow from a distance. Subjective Date/time seen: 06/27/23 09:46 Interval history: Follow-up for acute hyponatremia. Sodium continues to improve (likely in part due to NPO status); passing flatus and had BM; pain control appears adequate as well; NG remains in placed; no acute distress noted. Exam Narrative: General: middle aged female in NAD Heart: normal S1 and S2; no rub Lungs: clear to auscultation Abdomen: soft, with mild TTP, hypoactive bowel sounds; incision c/d/i Extremities: no cyanosis or clubbing; no edema Skin: warm and intact Objective Data Vital Signs Vital Signs: Vital Signs Temp Pulse Resp BP Pulse Ox O2 Del Method 06/27/23 08:45 98.5 F 118 H 17 151/75 H 90 06/27/23 08:00 Room Air 06/27/23 07:32 98.4 F 106 H 18 145/74 H 98 06/27/23 05:51 110 H 06/27/23 04:53 96.9 F L 109 H 18 146/76 H 93 06/27/23 03:21 104 H 18 93 Room Air 06/27/23 03:21 133/77 06/27/23 03:21 104 H 06/27/23 02:00 102 H 06/27/23 00:00 108 H 18 93 Room Air 06/27/23 00:00 133/77 06/27/23 00:00 106 H 06/26/23 23:51 97.2 F L 104 H 18 133/77 93 06/26/23 21:31 98 06/26/23 20:00 104 H 18 97 Room Air 06/26/23 20:00 127/69 06/26/23 20:00 104 H 06/26/23 19:51 97.0 F L 98 18 127/69 97 06/26/23 18:00 103 H 06/26/23 16:30 97.2 F L 107 H 18 132/64 96 06/26/23 16:00 98 16 66 L Room Air 06/26/23 16:00 131/72 06/26/23 16:00 103 H Intake/Output Intake/Output: Intake & Output 06/24/23 06/25/23 06/26/23 06/27/23 23:59 23:59 23:
--- NOTE | 2023-06-27 09:46 | PM.PNNEP ---
Progress Note: A&P Assessment and Plan (1) Acute hyponatremia: Code(s): E87.1 - Hypo-osmolality and hyponatremia Status: Acute Assessment and Plan: improving with current therapy/interventions presumably acute (but no previous labs to compare) improvement noted with gentle normal saline IVFs this argues in favor of hypovolemia as etiology of low sodium history of alcohol as well as HCTZ use may be contributing factors evaluation to date: TSH okay cortisol in range urine electroltyes prerenal SPEP/UPEP and serum/urine osmolality pending follow serial sodium levels (2) Acute hypokalemia: Code(s): E87.6 - Hypokalemia Status: Acute Assessment and Plan: due to poor oral intake, NPO status and GI symptoms prior to admission replete as needed (3) Perforated gastric ulcer: Code(s): K25.5 - Chronic or unspecified gastric ulcer with perforation Status: Acute Assessment and Plan: incidently found during EGD on 06/24 s/p exploratory laparotomy with repair of perforated gastric antral ulcer with modified omentum Cheo patch by Surgery (on 06/24) remains on IV protonix NG in place and NPO advance diet as tolerated GI and Surgery following (4) Colitis: Code(s): K52.9 - Noninfective gastroenteritis and colitis, unspecified Status: Acute Assessment and Plan: as noted by admission imaging follow culture data on antibiotics Not much else to add -- will continue to follow from a distance. Subjective Date/time seen: 06/27/23 09:46 Interval history: Follow-up for acute hyponatremia. Sodium continues to improve (likely in part due to NPO status); passing flatus and had BM; pain control appears adequate as well; NG remains in placed; no acute distress noted. Exam Narrative: General: middle aged female in NAD Heart: normal S1 and S2; no rub Lungs: clear to auscultation Abdomen: soft, with mild TTP, hypoactive bowel sounds; incision c/d/i Extremities: no cyanosis or clubbing; no edema Skin: warm and intact Objective Data Vital Signs Vital Signs: Vital Signs Temp Pulse Resp BP Pulse Ox O2 Del Method 06/27/23 08:45 98.5 F 118 H 17 151/75 H 90 06/27/23 08:00 Room Air 06/27/23 07:32 98.4 F 106 H 18 145/74 H 98 06/27/23 05:51 110 H 06/27/23 04:53 96.9 F L 109 H 18 146/76 H 93 06/27/23 03:21 104 H 18 93 Room Air 06/27/23 03:21 133/77 06/27/23 03:21 104 H 06/27/23 02:00 102 H 06/27/23 00:00 108 H 18 93 Room Air 06/27/23 00:00 133/77 06/27/23 00:00 106 H 06/26/23 23:51 97.2 F L 104 H 18 133/77 93 06/26/23 21:31 98 06/26/23 20:00 104 H 18 97 Room Air 06/26/23 20:00 127/69 06/26/23 20:00 104 H 06/26/23 19:51 97.0 F L 98 18 127/69 97 06/26/23 18:00 103 H 06/26/23 16:30 97.2 F L 107 H 18 132/64 96 06/26/23 16:00 98 16 66 L Room Air 06/26/23 16:00 131/72 06/26/23 16:00 103 H Intake/Output Intake/Output: Intake & Output 06/24/23 06/25/23 06/26/23 06/27/23 23:59 23:59 23:59 23:59 Intake Total 1670.0 2750 740 495 Output Total 1300 1810 915 415 Balance 370.0 940 -175 80 Meds/Results Medications: Active Medications Generic Name Dose Route Start Last Admin Trade Name Freq PRN Reason Stop Dose Admin Acetaminophen 650 mg 06/24/23 04:13 Acetaminophen 325 Mg Tablet PO Q6H PRN Pain 1-3 or fever Al Hydrox/Mg Hydrox/Simethicone 30 ml 06/25/23 23:35 06/27/23 14:46 Mag Hydrox/Al Hydrox/Simeth 30 Ml Udc PO 30 ml Q8HR CELI Administration Chlordiazepoxide HCl 25 mg 06/24/23 07:44 Chlordiazepoxide (*Crx) 25 Mg Capsule PO Q6H PRN Withdrawal Diazepam 5 mg 06/25/23 22:45 06/27/23 08:41 Diazepam Inj (*Crx) 10 Mg/2 Ml Syringe IV PUSH 5 mg Q12HR CELI Administration Enoxaparin Sodium 40 mg 06/08
[2023-06-27] MEDS: HYDROmorphone HCL INJ (*CRX) 1 MG/ML SYR IV PUSH ×2 (09:49→20:39)
[2023-06-27] MEDS: FLUCONAZOLE 100 MG/NACL 50 ML 100 MG/50 ML BTL 50 MG IVPB (09:52)
--- NOTE | 2023-06-27 12:58 | WPDPN ---
Progress Note: A&P Assessment and Plan (1) Perforated gastric ulcer: Code(s): K25.5 - Chronic or unspecified gastric ulcer with perforation Status: Acute Assessment and Plan: Patient is doing very well 2 days after her laparotomy and repair of perforated antral gastric ulcer with modified Cheo patch. She has had a bowel movement so it appears that she does not have a real prolonged ileus. Go ahead and get an upper GI water-soluble stated make sure there is no leaking and the those gastric ulcer. And there is no week then we can remove the NG tube and start her on liquids. Otherwise continue supportive management. Continue antibiotics and IV proton pump inhibitor. Subjective Date/time seen: 06/27/23 12:58 Interval history: Patient feels better. She states she had a bowel movement. Nursing confirmed. No nausea or vomiting. NG tube output is not bilious. OSCAR output is not bilious either. White blood cell count is slightly elevated to 14,000. No fever or tachycardia however. Exam GI: Other: Abdomen is soft and minimally distended. Midline incision is healing well with car in place. There is no redness or drainage. OSCAR drain is nonbilious and typical reactive serous fluid from her peritonitis. Objective Data Vital Signs Vital Signs: Vital Signs - 24 hr 06/26/23 13:57 06/26/23 14:00 06/26/23 16:00 Temperature Pulse Rate 100 98 103 H Respiratory Rate Blood Pressure Pulse Oximetry 66 L Oxygen Delivery 06/26/23 16:00 06/26/23 16:00 06/26/23 16:30 Temperature 36.2 C L Pulse Rate 98 107 H Respiratory Rate 16 18 Blood Pressure 131/72 132/64 Pulse Oximetry 66 L 96 Oxygen Delivery Room Air 06/26/23 18:00 06/26/23 19:51 06/26/23 20:00 Temperature 36.1 C L Pulse Rate 103 H 98 104 H Respiratory Rate 18 Blood Pressure 127/69 Pulse Oximetry 97 Oxygen Delivery 06/26/23 20:00 06/26/23 20:00 06/26/23 21:31 Temperature Pulse Rate 104 H 98 Respiratory Rate 18 Blood Pressure 127/69 Pulse Oximetry 97 Oxygen Delivery Room Air 06/26/23 23:51 06/27/23 00:00 06/27/23 00:00 Temperature 36.2 C L Pulse Rate 104 H 106 H Respiratory Rate 18 Blood Pressure 133/77 133/77 Pulse Oximetry 93 Oxygen Delivery 06/27/23 00:00 06/27/23 02:00 06/27/23 03:21 Temperature Pulse Rate 108 H 102 H 104 H Respiratory Rate 18 Blood Pressure Pulse Oximetry 93 Oxygen Delivery Room Air 06/27/23 03:21 06/27/23 03:21 06/27/23 04:53 Temperature 36.1 C L Pulse Rate 104 H 109 H Respiratory Rate 18 18 Blood Pressure 133/77 146/76 H Pulse Oximetry 93 93 Oxygen Delivery Room Air 06/27/23 05:51 06/27/23 07:32 06/27/23 08:00 Temperature 36.9 C Pulse Rate 110 H 106 H Respiratory Rate 18 Blood Pressure 145/74 H Pulse Oximetry 98 Oxygen Delivery Room Air 06/27/23 11:45 Temperature 36.9 C Pulse Rate 118 H Respiratory Rate 17 Blood Pressure 151/75 H Pulse Oximetry 90 Oxygen Delivery Intake/Output Intake/Output: Intake & Output 06/24/23 06/25/23 06/26/23 06/27/23 23:59 23:59 23:59 23:59 Intake Total 1670.0 2750 740 345 Output Total 1300 1810 915 415 Balance 370.0 942 -175 -70 Meds/Results Medications: Active Medications Generic Name Dose Route Start Last Admin Trade Name Freq PRN Reason Stop Dose Admin Acetaminophen 650 mg 06/24/23 04:13 Acetaminophen 325 Mg Tablet PO Q6H PRN Pain 1-3 or fever Al Hydrox/Mg Hydrox/Simethicone 30 ml 06/25/23 23:35 06/27/23 05:29 Mag Hydrox/Al Hydrox/Simeth 30 Ml Udc PO 30 ml Q8HR CELI Administration Chlordiazepoxide HCl 25 mg 06/24/23 07:44 Chlordiazepoxide (*Crx) 25 Mg Capsule PO Q6H PRN Withdrawal Diazepam 5 mg 06/25/23 22:45 06/27/23 08:41 Diazepam Inj (*Crx) 10 Mg/2 Ml Syringe IV PUSH 5 mg Q12HR CELI Administration Enoxaparin Sodium 40 mg 06/26/23 09:00 06/27/23 08:41 Enoxapari
--- NOTE | 2023-06-27 13:13 | PM.IMPN ---
Progress Note: A&P Assessment and Plan (1) Colitis: Code(s): K52.9 - Noninfective gastroenteritis and colitis, unspecified Status: Acute Assessment and Plan: Patient presented with diffuse abdominal pain CT demonstrates colitis infectious versus inflammatory sp perforated gastric ulcer surgery She was started on empiric antibiotic therapy with zosyn and flagyl and iv fluconazole (2) Gastric ulcer: Qualifiers: Gastric ulcer chronicity: acute Gastric ulcer complication status: without hemorrhage or perforation Qualified Code(s): K25.3 - Acute gastric ulcer without hemorrhage or perforation Code(s): K25.9 - Gastric ulcer, unspecified as acute or chronic, without hemorrhage or perforation Status: Inactive Assessment and Plan: Possible gastric ulcer noted on imaging. Possibly related to tobaaco and alcohol use with recent ibuprofen use Received 1 dose of Protonix 80 mg IV in the ER and started on b.i.d. Protonix Pt went to OR for perforated gastric ulcer post op day 2 Pt is NPO with NG tube and IV fluids Pt to have SBFT today may have NG removed after that (3) Acute hyponatremia: Code(s): E87.1 - Hypo-osmolality and hyponatremia Status: Acute Assessment and Plan: Sodium 118 on admission Treated with IV fluids. Nephrology consulted and appreciate their input Sodium has improved to 134 (4) Acute hypokalemia: Code(s): E87.6 - Hypokalemia Status: Acute Assessment and Plan: Potassium 2.8 on admission but normal now after rpelacement Continue to replace with potassium K today was 3.6 potassium is nl (5) Chronic alcohol abuse: Code(s): F10.10 - Alcohol abuse, uncomplicated Status: Acute Assessment and Plan: Patient with chronic alcohol abuse. Thiamine and and folate added. [facility] protocol Ativan and Librium available for s/sx of withdrawal. (6) Megaloblastic anemia: Code(s): D53.1 - Other megaloblastic anemias, not elsewhere classified Status: Acute Assessment and Plan: B12 and folate normal. Folate low end of normal but now on replacement Related to underlying liver disease from her alcoholism (7) Ascites: Code(s): R18.8 - Other ascites Status: Acute Assessment and Plan: The patient does have ascites noted on CT. This could be due to inflammation from the colitis and/or underlying hepatic dysfunction Consider also malignancy. Paracentesis if sufficient amount of fluid can be obtained. (8) Obesity (BMI 30.0-34.9): Code(s): E66.9 - Obesity, unspecified Status: Acute Assessment and Plan: The patient does have snoring he reports that she takes naps daily and sometimes falls asleep at her desk at work. She would benefit from outpatient polysomnogram. (9) Cardiac murmur: Code(s): R01.1 - Cardiac murmur, unspecified Status: Acute Assessment and Plan: Patient with heart murmur on exam but denies any significant symptoms. This could be evaluated as outpatient if she becomes symptomatic. Subjective Date/time seen: 06/27/23 13:13 Interval history: 53yo female with alcoholism, IBS and HTN here for left shoulder adn abdominal pain and found to have colitis and possible peptic ulcer. 06/25/2023t complains of pains in her abdomen and left shoulder Pt states she drinks 3 vodkas everyday 06/26/2023 Unfortunately pt had to go to OR for perforated gastric ulcer Pt is Npo with Ng tube in situ and iv fluids Pt had bowel movement, pt to have SBFT today possibly then can have NG removed Review of Systems Review of Systems: Tired weak no specific compliants Exam Narrative: Gen - tired and weak middle aged lady with NG tube in situ Chest - clear CV - RRR S1/S2. T Abd - sp perforated ulcer surgery Ext - No pedal edema Psych - Nml mood and affect Skin - Warm and
--- NOTE | 2023-06-27 15:04 | WPDGIPROGNO ---
Progress Note: A&P Assessment and Plan (1) Perforated gastric ulcer: Code(s): K25.5 - Chronic or unspecified gastric ulcer with perforation Status: Acute Assessment and Plan: found during EGD- then taken to OR, underwent Exploratory laparotomy with repair of perforated gastric antral ulcer with modified omentum Cheo patch UGI series reviewed, no leak Continue with IV protonix and abx, still npo- diet per surgery will need EGD in 3-4 months (I did not take biopsies yesterday because of perforated ulcer and colonoscopy was also canceled) (2) Epigastric pain: Code(s): R10.13 - Epigastric pain Status: Acute Assessment and Plan: slowly improving (3) Chronic alcohol abuse: Code(s): F10.10 - Alcohol abuse, uncomplicated Status: Acute (4) Acute hyponatremia: Code(s): E87.1 - Hypo-osmolality and hyponatremia Status: Acute (5) NSAID long-term use: Code(s): 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 She completed earlier UGI series. Review of Systems Review of Systems: All systems reviewed & are unremarkable except as noted in HPI and below Exam Const: General: comfortable and no acute distress HENMT: Face/Nose/Sinus: Normal nares present Other: ngt in place Eyes: Sclera: sclerae normal Neck: Neck: supple Resp: Effort & Inspection: normal respiratory effort Cardio: Rate: regular rate GI: Inspection: other (Mildly distended) GI Palp: Yes Soft to palpation, Yes Tenderness to palpation present (GI) (Mild tenderness in the right upper quadrant and near her incision), No Guarding due to palpation present (GI), No Rebound tenderness present and Yes Other GI palpation findings present (OSCAR drain with cloudy serosanguineous drainage) Auscultation: Hypoactive bowel sounds present Skin: General skin exam: normal color Neuro: Speech: normal speech Motor exam (neuro): 5/5 motor strength present throughout Extrem: General: normal to inspection Psych: Mental Status: mental status grossly normal Objective Data Vital Signs Vital Signs: Vital Signs - 24 hr 06/26/23 16:00 06/26/23 16:00 06/26/23 16:00 Temperature Pulse Rate 103 H 98 Respiratory Rate 16 Blood Pressure 131/72 Pulse Oximetry 66 L Oxygen Delivery Room Air 06/26/23 16:30 06/26/23 18:00 06/26/23 19:51 Temperature 97.2 F L 97.0 F L Pulse Rate 107 H 103 H 98 Respiratory Rate 18 18 Blood Pressure 132/64 127/69 Pulse Oximetry 96 97 Oxygen Delivery 06/26/23 20:00 06/26/23 20:00 06/26/23 20:00 Temperature Pulse Rate 104 H 104 H Respiratory Rate 18 Blood Pressure 127/69 Pulse Oximetry 97 Oxygen Delivery Room Air 06/26/23 21:31 06/26/23 23:51 06/27/23 00:00 Temperature 97.2 F L Pulse Rate 98 104 H 106 H Respiratory Rate 18 Blood Pressure 133/77 Pulse Oximetry 93 Oxygen Delivery 06/27/23 00:00 06/27/23 00:00 06/27/23 02:00 Temperature Pulse Rate 108 H 102 H Respiratory Rate 18 Blood Pressure 133/77 Pulse Oximetry 93 Oxygen Delivery Room Air 06/27/23 03:21 06/27/23 03:21 06/27/23 03:21 Temperature Pulse Rate 104 H 104 H Respiratory Rate 18 Blood Pressure 133/77 Pulse Oximetry 93 Oxygen Delivery Room Air 06/27/23 04:53 06/27/23 05:51 06/27/23 07:32 Temperature 96.9 F L 98.4 F Pulse Rate 109 H 110 H 106 H Respiratory Rate 18 18 Blood Pressure 146/76 H 145/74 H Pulse Oximetry 93 98 Oxygen Delivery 06/27/23 08:00 06/27/23 11:45 06/27/23 08:00 Temperature 98.5 F Pulse Rate 118 H 99 Respiratory Rate 17 Blood Pressure 151/75 H Pulse Oximetry 90 Oxygen Delivery Room Air 06/27/23 10:00 06/27/23 12:00 06/27/23 12:00 Temperature Pulse Rate 11
[2023-06-27] MEDS: HYDROmorphone HCL INJ (*CRX) 1 MG/ML SYR 0.5 MG IV PUSH (15:32)
[2023-06-27 16:59] LABS: Immunoglobulin A 85 mg/dL (47-310); TTG IGA AB <1.0 U/mL
[2023-06-28] VITALS (19 sets, daily range): BP systolic 138–151; BP diastolic 72–88; PULSE 94–128; RESP 16–20; TEMP 36.3–36.8; O2SAT 90–98
[2023-06-28] MEDS: HYDROmorphone HCL INJ (*CRX) 1 MG/ML SYR IV PUSH ×2 (00:23→08:28)
[2023-06-28] MEDS: PIPERACILLN/TAZ 3.375GM/NS50ML 3.375 GM/50 ML BAG IVPB ×5 (00:24→23:52)
[2023-06-28 04:06] LABS: Hematocrit 25.8 % (37.0-47.0); Hemoglobin 8.8 g/dL (12.0-15.0); Mean Corpuscular HGB Conc 34.1 g/dl (32-36); Mean Corpuscular Hemoglobin 38.1 pg (26-34); Mean Corpuscular Volume 111.7 fl (80-100); Platelet Count Result 265 k/mm3 (150-375); Red Blood Count 2.31 M/mm3 (4.2-5.4); Red Cell Distribution Width 12.9 % (11.5-14.5); White Blood Count 13.2 K/mm3 (4.5-10.0)
[2023-06-28 04:17] LABS: Anion Gap 4 mmol/L (4-12); Blood Urea Nitrogen 3 mg/dL (7-17); Calcium 8.1 mg/dL (8.4-10.2); Carbon Dioxide 22 mmol/L (22-30); Chloride 104 mmol/L (98-107); Estimated CRCL calculation 109 ml/min; Estimated Glomerular Filt Rate > 60; Glucose 102 mg/dL (65-110); Potassium 2.9 mmol/L (3.4-5.0); Sodium 130 mmol/L (137-145)
[2023-06-28 05:07] LABS: Band Neutrophils Percent 7 % (0-6); Neutrophils Absolute Manual 10.95 K/mm3 (1.7-7.2); Neutrophils Percent Manual 76 % (46-73); Total Cells Counted 100
[2023-06-28 05:08] LABS: Basophils Absolute Manual 0.13 K/mm3 (0.0-0.1); Basophils Percent Manual 1 % (0-1); Eosinophils Absolute Manual 0.26 K/mm3 (0.02-0.50); Eosinophils Percent Manual 2 % (0-4); Lymphocytes Absolute Manual 0.66 K/mm3 (1.1-4.5); Lymphocytes Percent Manual 5 % (18-44); Monocytes Absolute Manual 1.18 K/mm3 (0.1-0.90); Monocytes Percent Manual 9 % (3-9); Platelet Estimate Adequate (Adequate)
[2023-06-28 05:09] LABS: Hypochromasia 1+; Schistocytes None Seen
[2023-06-28] MEDS: metroNIDAZOLE 500 MG/ISO 100ML 500 MG/100 ML BAG 100 MG IVPB ×3 (05:27→21:31)
[2023-06-28] MEDS: MAG HYDROX/AL HYDROX/SIMETH 30 ML UDC PO ×3 (05:28→21:32)
[2023-06-28] MEDS: SODIUM CHLORIDE 0.9% IV 1,000 ML 50 ML IV CONT (06:28)
[2023-06-28] MEDS: diazePAM INJ (*CRX) 10 MG/2 ML SYRINGE 5 MG IV PUSH (08:29)
[2023-06-28] MEDS: POTASSIUM CHLORIDE 20 MEQ PACKET (FOR LIQUID) 40 MEQ PO (08:29)
[2023-06-28] MEDS: ENOXAPARIN 40 MG/0.4 ML SYRINGE SUB-Q (08:29)
[2023-06-28] MEDS: FLUCONAZOLE 100 MG/NACL 50 ML 100 MG/50 ML BTL 50 MG IVPB (08:29)
[2023-06-28] MEDS: PANTOPRAZOLE SODIUM IV 40 MG VIAL IV PUSH ×2 (08:29→21:31)
--- NOTE | 2023-06-28 10:11 | PM.IMPN ---
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 of non-steroidal anti-inflammatories (NSAID) Status: Acute (3) Epigastric pain: Code(s): R10.13 - Epigastric pain Status: Acute (4) Perforated gastric ulcer: Code(s): K25.5 - Chronic or unspecified gastric ulcer with perforation Status: Acute (5) Diarrhea: Qualifiers: Diarrhea type: unspecified type Qualified Code(s): R19.7 - Diarrhea, unspecified Code(s): R19.7 - Diarrhea, unspecified Status: Acute (6) Macrocytic anemia: Code(s): D53.9 - Nutritional anemia, unspecified Status: Acute (7) Cardiac murmur: Code(s): R01.1 - Cardiac murmur, unspecified Status: Acute (8) Ascites: Code(s): R18.8 - Other ascites Status: Acute (9) Megaloblastic anemia: Code(s): D53.1 - Other megaloblastic anemias, not elsewhere classified Status: Acute (10) Obesity (BMI 30.0-34.9): Code(s): E66.9 - Obesity, unspecified Status: Acute (11) Chronic alcohol abuse: Code(s): F10.10 - Alcohol abuse, uncomplicated Status: Acute (12) Acute hyponatremia: Code(s): E87.1 - Hypo-osmolality and hyponatremia Status: Acute (13) Colitis: Code(s): K52.9 - Noninfective gastroenteritis and colitis, unspecified Status: Acute (14) Acute hypokalemia: Code(s): E87.6 - Hypokalemia Status: Acute Plan 53-year-old female past medical history obesity, active and chronic heavy alcohol use, tobacco abuse, irritable bowel syndrome, hypertension presenting with shoulder pain which progressed to abdominal pain. She has had diarrhea for some time but had increasing profuse diarrhea which was green/dark. ED evaluation demonstrated gastric ulcer and colitis so this patient was admitted for further workup. On 06/24 the patient underwent EGD which demonstrated a single deep ulcer the gastric and antrum with perforation. Biopsies deferred. Colonoscopy canceled. On 06/25 the patient underwent exploratory laparotomy with repair perforated gastric antral ulcer with modified omentum Cheo patch. #Perforated gastric ulcer -status post exploratory laparotomy with gastric ulcer of the antrum repair with a Cheo patch on 06/25 -patient doing relatively well after surgery. She is currently on Dilaudid q.4 hours p.r.n. -currently on normal saline at 50 cc/hour. Currently on Mylanta. Currently on Protonix 40 mg IV b.i.d. -small-bowel follow-through negative for extravasation on 06/26. NG tube removed. Patient tolerating clear liquid diet. OSCAR drain with serous drainage. Surgery to manage. #leukocytosis -multifactorial due to large bowel surgery gastric ulcer and colitis. Continue to monitor. -check procalcitonin in the morning. #Colitis -infectious versus inflammatory. Patient has a longstanding history of diarrhea and irritable bowel syndrome. No biopsies taken from GI due to gastric ulcer. Follow-up with GI as outpatient she will need colonoscopy and repeat EGD as well. -placed on metronidazole Zosyn and fluconazole. Blood cultures pending #Acute hypokalemia -potassium 2.9. Magnesium not checked, will check. -replace with potassium IV. Recheck magnesium and potassium in the afternoon #Acute hyponatremia -118 on admission. Has improved appropriately status post volume resuscitation supporting the hypovolemic hypotonic hyponatremia. However was also on HCTZ at home and has been abusing alcohol. -nephrology following. #Chronic alcohol abuse -again, a
[2023-06-28] MEDS: POTASSIUM CHLORIDE INJ 40 MEQ in SODIUM CHLORIDE 0.9% IV 500 ML 130 MEQ IVPB (11:59)
--- NOTE | 2023-06-28 12:39 | PM.PNGS ---
Progress Note: A&P Assessment and Plan (1) Perforated gastric ulcer: Code(s): K25.5 - Chronic or unspecified gastric ulcer with perforation Status: Acute Assessment and Plan: Continue antibiotics, Protonix, and Carafate Advance to full liquids Transition to oral pain meds Monitor OSCAR output Subjective Subjective Date/Time Seen: 06/28/23 12:39 Interval history: Tolerating clear liquids. Pain improving. Bowels moving. Exam GI: Inspection: non-distended and other (OSCAR serous) GI Palp: No abdominal tenderness and Yes Soft to palpation Auscultation: normal bowel sounds Objective Data Vital Signs Vital Signs: Vital Signs - 24 hr 06/27/23 14:00 06/27/23 15:44 06/27/23 16:00 Temperature 36.6 C Pulse Rate 123 H 121 H 115 H Respiratory Rate 17 Blood Pressure 141/63 H Pulse Oximetry 95 Oxygen Delivery 06/27/23 16:00 06/27/23 18:00 06/27/23 20:00 Temperature 36.9 C Pulse Rate 126 H 123 H Respiratory Rate 18 Blood Pressure 144/82 H Pulse Oximetry 94 Oxygen Delivery Room Air 06/27/23 20:00 06/27/23 20:00 06/27/23 21:34 Temperature Pulse Rate 135 H 135 H 128 H Respiratory Rate 18 Blood Pressure Pulse Oximetry 94 Oxygen Delivery Room Air 06/27/23 23:32 06/28/23 00:35 06/28/23 00:35 Temperature 36.8 C Pulse Rate 126 H 117 H 117 H Respiratory Rate 18 18 Blood Pressure 151/81 H Pulse Oximetry 98 98 Oxygen Delivery Room Air 06/28/23 01:56 06/28/23 03:21 06/28/23 03:21 Temperature Pulse Rate 94 128 H 128 H Respiratory Rate 18 Blood Pressure Pulse Oximetry 98 Oxygen Delivery Room Air 06/28/23 03:28 06/28/23 05:43 06/28/23 07:46 Temperature 36.8 C Pulse Rate 121 H 117 H Respiratory Rate 18 Blood Pressure 141/73 H Pulse Oximetry 90 Oxygen Delivery Room Air 06/28/23 07:48 06/28/23 09:39 06/28/23 08:00 Temperature 36.3 C L Pulse Rate 111 H 118 H Respiratory Rate 20 Blood Pressure 145/77 H Pulse Oximetry 95 94 Oxygen Delivery Room Air 06/28/23 10:00 06/28/23 11:51 Temperature 36.5 C Pulse Rate 117 H 107 H Respiratory Rate 18 Blood Pressure 141/74 H Pulse Oximetry 98 Oxygen Delivery Intake/Output Intake/Output: Intake & Output 06/25/23 06/26/23 06/27/23 06/28/23 23:59 23:59 23:59 23:59 Intake Total 2750 813 517 9097 Output Total 5479 945 1296 660 Balance 940 -175 -60 1650 Meds/Results Medications: Active Medications Generic Name Dose Route Start Last Admin Trade Name Freq PRN Reason Stop Dose Admin Acetaminophen 650 mg 06/24/23 04:13 Acetaminophen 325 Mg Tablet PO Q6H PRN Pain 1-3 or fever Al Hydrox/Mg Hydrox/Simethicone 30 ml 06/25/23 23:35 06/28/23 05:28 Mag Hydrox/Al Hydrox/Simeth 30 Ml Udc PO 30 ml Q8HR CELI Administration Chlordiazepoxide HCl 25 mg 06/24/23 07:44 Chlordiazepoxide (*Crx) 25 Mg Capsule PO Q6H PRN Withdrawal Enoxaparin Sodium 40 mg 06/26/23 09:00 06/28/23 08:29 Enoxaparin 40 Mg/0.4 Ml Syringe SUB-Q 40 mg DAILY CELI Administration Folic Acid 1 mg 06/24/23 09:00 06/26/23 09:41 Folic Acid 1 Mg Tablet PO Not Given DAILY CELI Hydromorphone HCl 0.5 mg 06/26/23 13:36 06/27/23 15:32 Hydromorphone Hcl Inj (*Crx) 1 Mg/Ml Syr IV PUSH 0.5 mg Q4HR PRN Administration Pain Rated 4-6 Hydromorphone HCl 1 mg 06/26/23 13:39 06/28/23 08:28 Hydromorphone Hcl Inj (*Crx) 1 Mg/Ml Syr IV PUSH 1 mg Q4H PRN Administration Pain Rated 7-10 Metronidazole 500 mg in 100 mls @ 100 mls/hr 06/24/23 04:00 06/28/23 06:30 Flagyl 500 Mg/Iso Soln 100 Ml IVPB Infused Q8HR [facility] Infusion Sodium Chloride 1,000 mls @ 50 mls/hr 06/25/23 00:25 06/28/23 11:31 Normal Saline Iv IV CONT Not Given .Q20H CELI Fluconazole/Dextrose 100 mg in 50 mls @ 50 mls/hr 06/25/23 16:00 06/28/23 09:30 Diflucan 100 Mg/Nacl 50 Ml IVPB Infused DAILY CELI Infusion [facility]
[2023-06-28] MEDS: oxyCODONE HCL (*CRX) 5 MG TAB IR 10 MG PO ×3 (13:46→23:53)
--- NOTE | 2023-06-28 14:03 | WPDGIPROGNO ---
Progress Note: A&P Assessment and Plan (1) Perforated gastric ulcer: Code(s): K25.5 - Chronic or unspecified gastric ulcer with perforation Status: Acute Assessment and Plan: found during EGD- then taken to OR, underwent Exploratory laparotomy with repair of perforated gastric antral ulcer with modified omentum Cheo patch UGI series reviewed, no leak Continue with IV protonix and abx ngt removed and tolerating liquid diet will need EGD in 3-4 months (I did not take biopsies- colonoscopy also can be scheduled same time since she never had one) (2) Epigastric pain: Code(s): R10.13 - Epigastric pain Status: Acute Assessment and Plan: slowly improving (3) Chronic alcohol abuse: Code(s): F10.10 - Alcohol abuse, uncomplicated Status: Acute (4) Acute hyponatremia: Code(s): E87.1 - Hypo-osmolality and hyponatremia Status: Acute Assessment and Plan: improved (5) NSAID long-term use: Code(s): Z79.1 - longterm (current) use of non-steroidal anti-inflammatories (NSAID) Status: Acute Assessment and Plan: discontinued Subjective Date/time seen: 06/28/23 14:03 Interval history: better, NGT removed and tolerating liquid diet Review of Systems Review of Systems: All systems reviewed & are unremarkable except as noted in HPI and below Exam Const: General: comfortable and no acute distress HENMT: Face/Nose/Sinus: Normal nares present Eyes: Sclera: sclerae normal Neck: Neck: supple Resp: Effort & Inspection: normal respiratory effort Cardio: Rate: regular rate GI: Inspection: other (Mildly distended) GI Palp: Yes Soft to palpation, Yes Tenderness to palpation present (GI) (Mild tenderness in the right upper quadrant and near her incision), No Guarding due to palpation present (GI), No Rebound tenderness present and Yes Other GI palpation findings present (OSCAR drain with cloudy serosanguineous drainage) Auscultation: Hypoactive bowel sounds present Skin: General skin exam: normal color Neuro: Speech: normal speech Motor exam (neuro): 5/5 motor strength present throughout Extrem: General: normal to inspection Psych: Mental Status: mental status grossly normal Objective Data Vital Signs Vital Signs: Vital Signs - 24 hr 06/27/23 15:44 06/27/23 16:00 06/27/23 16:00 Temperature 97.8 F Pulse Rate 121 H 115 H Respiratory Rate 17 Blood Pressure 141/63 H Pulse Oximetry 95 Oxygen Delivery Room Air 06/27/23 18:00 06/27/23 20:00 06/27/23 20:00 Temperature 98.4 F Pulse Rate 126 H 123 H 135 H Respiratory Rate 18 Blood Pressure 144/82 H Pulse Oximetry 94 Oxygen Delivery 06/27/23 20:00 06/27/23 21:34 06/27/23 23:32 Temperature 98.2 F Pulse Rate 135 H 128 H 126 H Respiratory Rate 18 18 Blood Pressure 151/81 H Pulse Oximetry 94 98 Oxygen Delivery Room Air 06/28/23 00:35 06/28/23 00:35 06/28/23 01:56 Temperature Pulse Rate 117 H 117 H 94 Respiratory Rate 18 Blood Pressure Pulse Oximetry 98 Oxygen Delivery Room Air 06/28/23 03:21 06/28/23 03:21 06/28/23 03:28 Temperature 98.3 F Pulse Rate 128 H 128 H 121 H Respiratory Rate 18 18 Blood Pressure 141/73 H Pulse Oximetry 98 90 Oxygen Delivery Room Air 06/28/23 05:43 06/28/23 07:46 06/28/23 07:48 Temperature 97.3 F L Pulse Rate 117 H 111 H Respiratory Rate 20 Blood Pressure 145/77 H Pulse Oximetry 95 Oxygen Delivery Room Air 06/28/23 09:39 06/28/23 08:00 06/28/23 10:00 Temperature Pulse Rate 118 H 117 H Respiratory Rate Blood Pressure Pulse Oximetry 94 Oxygen Delivery Room Air 06/28/23 11:51 06/28/23 12:00 06/28/23 12:00 Temperature 97.7 F Pulse Rate 107 H 116 H Respiratory Rate 18 Blood Pressure 141/74 H Pulse Oximetry 98 Oxygen Delivery Room Air Intake/Output Intake/Output: Intake & Output 06/25/23 06/26/23 06/27/23 06/28/23 23:
[2023-06-28 14:38] LABS: Anion Gap 4 mmol/L (4-12); Calcium 8.2 mg/dL (8.4-10.2); Carbon Dioxide 22 mmol/L (22-30); Chloride 103 mmol/L (98-107); Estimated CRCL calculation 109 ml/min; Estimated Glomerular Filt Rate > 60; Glucose 115 mg/dL (65-110); Magnesium 1.7 mg/dL (1.6-2.3); Sodium 129 mmol/L (137-145)
[2023-06-28 14:53] LABS: Blood Urea Nitrogen 3 mg/dL (7-17)
[2023-06-28] MEDS: POTASSIUM CHLORIDE 20 MEQ PACKET (FOR LIQUID) 60 MEQ PO (18:20)
[2023-06-29] VITALS (16 sets, daily range): BP systolic 113–146; BP diastolic 53–79; PULSE 96–114; RESP 16–20; TEMP 36.3–38.3; O2SAT 94–96
[2023-06-29 04:00] LABS: Hematocrit 26.1 % (37.0-47.0); Mean Corpuscular HGB Conc 34.5 g/dl (32-36); Mean Corpuscular Hemoglobin 38.3 pg (26-34); Mean Corpuscular Volume 111.1 fl (80-100); Mean Platelet Volume 9.4 fl (7.4-10.4); Platelet Count Result 316 k/mm3 (150-375); Red Blood Count 2.35 M/mm3 (4.2-5.4); Red Cell Distribution Width 12.8 % (11.5-14.5); White Blood Count 13.9 K/mm3 (4.5-10.0)
[2023-06-29 04:13] LABS: Alanine Aminotransferase 13 U/L (6-35); Albumin Level 2.6 g/dL (3.5-5.1); Alkaline Phosphatase 84 U/L (38-126); Anion Gap 3 mmol/L (4-12); Aspartate Amino Transferase 21 U/L (14-36); Bilirubin,Total 0.4 mg/dL (0.2-1.3); Calcium 8.4 mg/dL (8.4-10.2); Carbon Dioxide 22 mmol/L (22-30); Chloride 106 mmol/L (98-107); Estimated CRCL calculation 93 ml/min; Estimated Glomerular Filt Rate > 60; Glucose 123 mg/dL (65-110); Magnesium 1.7 mg/dL (1.6-2.3); Potassium 3.6 mmol/L (3.4-5.0); Sodium 131 mmol/L (137-145)
[2023-06-29 04:30] LABS: Procalcitonin 0.5 ng/mL; Total Cells Counted 100
[2023-06-29 04:31] LABS: Band Neutrophils Percent 11 % (0-6); Basophils Absolute Manual 0.13 K/mm3 (0.0-0.1); Basophils Percent Manual 1 % (0-1); Blood Urea Nitrogen < 2 mg/dL (7-17); Eosinophils Absolute Manual 0.27 K/mm3 (0.02-0.50); Eosinophils Percent Manual 2 % (0-4); Lymphocytes Absolute Manual 0.41 K/mm3 (1.1-4.5); Lymphocytes Percent Manual 3 % (18-44); Monocytes Absolute Manual 0.97 K/mm3 (0.1-0.90); Monocytes Percent Manual 7 % (3-9); Neutrophils Absolute Manual 12.09 K/mm3 (1.7-7.2); Neutrophils Percent Manual 76 % (46-73)
[2023-06-29 04:32] LABS: Large Platelets Present; Platelet Estimate Adequate (Adequate)
[2023-06-29 04:33] LABS: Anisocytosis 1+; Schistocytes None Seen; Toxic Granulation Present
[2023-06-29] MEDS: metroNIDAZOLE 500 MG/ISO 100ML 500 MG/100 ML BAG 100 MG IVPB ×2 (05:59→19:57)
[2023-06-29] MEDS: PIPERACILLN/TAZ 3.375GM/NS50ML 3.375 GM/50 ML BAG IVPB ×2 (06:00→13:00)
[2023-06-29] MEDS: MAG HYDROX/AL HYDROX/SIMETH 30 ML UDC PO ×3 (06:00→22:20)
[2023-06-29] MEDS: oxyCODONE HCL (*CRX) 5 MG TAB IR 10 MG PO ×2 (06:09→22:20)
[2023-06-29] MEDS: FLUCONAZOLE 100 MG/NACL 50 ML 100 MG/50 ML BTL 50 MG IVPB (08:57)
[2023-06-29] MEDS: ENOXAPARIN 40 MG/0.4 ML SYRINGE SUB-Q (08:58)
[2023-06-29] MEDS: PANTOPRAZOLE SODIUM IV 40 MG VIAL IV PUSH ×2 (08:58→20:39)
--- NOTE | 2023-06-29 12:00 | PM.PNGS ---
Progress Note: A&P Assessment and Plan (1) Perforated gastric ulcer: Code(s): K25.5 - Chronic or unspecified gastric ulcer with perforation Status: Acute Assessment and Plan: Continue antibiotics, Protonix, and Carafate Advance to regular diet OSCAR can possibly be removed tomorrow Surgically stable for discharge in next 1-2 days hopefully Subjective Subjective Date/Time Seen: 06/29/23 12:00 Interval history: Tolerating full liquids. Bowels moving. No fevers. Exam GI: Inspection: non-distended and other (OSCAR serous) GI Palp: No abdominal tenderness and Yes Soft to palpation Auscultation: normal bowel sounds Objective Data Vital Signs Vital Signs: Vital Signs - 24 hr 06/28/23 14:00 06/28/23 16:00 06/28/23 16:00 Temperature Pulse Rate 120 H 126 H Respiratory Rate Blood Pressure Pulse Oximetry Oxygen Delivery Room Air 06/28/23 16:20 06/28/23 18:00 06/28/23 20:00 Temperature 36.3 C L 36.6 C Pulse Rate 113 H 124 H 128 H Respiratory Rate 20 16 Blood Pressure 151/88 H 149/72 H Pulse Oximetry 96 92 Oxygen Delivery 06/28/23 20:00 06/28/23 20:00 06/28/23 22:00 Temperature Pulse Rate 127 H 120 H Respiratory Rate Blood Pressure Pulse Oximetry Oxygen Delivery Room Air 06/28/23 23:41 06/29/23 00:00 06/29/23 00:00 Temperature 36.3 C L Pulse Rate 119 H 110 H Respiratory Rate 16 Blood Pressure 138/75 Pulse Oximetry 96 Oxygen Delivery Room Air 06/29/23 02:00 06/28/23 21:53 06/29/23 04:31 Temperature 36.3 C L Pulse Rate 101 H 102 H Respiratory Rate 16 Blood Pressure 113/75 Pulse Oximetry 96 94 Oxygen Delivery Room Air 06/29/23 04:00 06/29/23 04:00 06/29/23 06:00 Temperature Pulse Rate 96 112 H Respiratory Rate Blood Pressure Pulse Oximetry Oxygen Delivery Room Air 06/29/23 08:00 06/29/23 08:04 06/29/23 08:00 Temperature 36.7 C Pulse Rate 101 H 102 H Respiratory Rate 16 Blood Pressure 129/67 Pulse Oximetry 94 94 Oxygen Delivery Room Air 06/29/23 10:00 Temperature Pulse Rate 106 H Respiratory Rate Blood Pressure Pulse Oximetry Oxygen Delivery Intake/Output Intake/Output: Intake & Output 06/26/23 06/27/23 06/28/23 06/29/23 23:59 23:59 23:59 23:59 Intake Total 705 841 4715.7 860 Output Total 915 1045 1090 25 Balance -175 -60 4101.7 835 Meds/Results Medications: Active Medications Generic Name Dose Route Start Last Admin Trade Name Freq PRN Reason Stop Dose Admin Acetaminophen 650 mg 06/24/23 04:13 Acetaminophen 325 Mg Tablet PO Q6H PRN Pain 1-3 or fever Al Hydrox/Mg Hydrox/Simethicone 30 ml 06/25/23 23:35 06/29/23 06:00 Mag Hydrox/Al Hydrox/Simeth 30 Ml Udc PO 30 ml Q8HR CELI Administration Enoxaparin Sodium 40 mg 06/26/23 09:00 06/29/23 08:58 Enoxaparin 40 Mg/0.4 Ml Syringe SUB-Q 40 mg DAILY CELI Administration Folic Acid 1 mg 06/24/23 09:00 06/26/23 09:41 Folic Acid 1 Mg Tablet PO Not Given DAILY CELI Hydromorphone HCl 0.5 mg 06/26/23 13:36 06/27/23 15:32 Hydromorphone Hcl Inj (*Crx) 1 Mg/Ml Syr IV PUSH 0.5 mg Q4HR PRN Administration Pain Rated 4-6 Hydromorphone HCl 1 mg 06/26/23 13:39 06/28/23 08:28 Hydromorphone Hcl Inj (*Crx) 1 Mg/Ml Syr IV PUSH 1 mg Q4H PRN Administration Pain Rated 7-10 Fluconazole/Dextrose 100 mg in 50 mls @ 50 mls/hr 06/25/23 16:00 06/29/23 08:57 Diflucan 100 Mg/Nacl 50 Ml IVPB 50 mls/hr DAILY CELI Administration Piperacillin/Tazobactam/Dextrose 3.375 gm in 50 mls @ 100 mls/hr 06/25/23 16:00 06/29/23 06:30 Zosyn 3.375 Gm/Ns 50 Ml IVPB Infused Q6HR [facility]I Infusion Losartan Potassium 100 mg 06/24/23 21:00 06/25/23 23:45 Losartan Potassium 100 Mg Tablet PO Not Given HS CELI Oxycodone HCl 5 mg 06/28/23 12:38 Oxycodone Hcl (*Crx) 5 Mg Tab Ir PO Q4H PRN Pain Rated 4-6 Oxycodone HCl 10 mg 04
--- NOTE | 2023-06-29 12:01 | PM.IMPN ---
Progress Note: A&P Assessment and Plan (1) Gastric ulcer: Qualifiers: Gastric ulcer chronicity: acute Gastric ulcer complication status: without hemorrhage or perforation Qualified Code(s): K25.3 - Acute gastric ulcer without hemorrhage or perforation Code(s): K25.9 - Gastric ulcer, unspecified as acute or chronic, without hemorrhage or perforation Status: Acute (2) NSAID long-term use: Code(s): Z79.1 - superintendent container terminal (current) use of non-steroidal anti-inflammatories (NSAID) Status: Acute (3) Epigastric pain: Code(s): R10.13 - Epigastric pain Status: Acute (4) Perforated gastric ulcer: Code(s): K25.5 - Chronic or unspecified gastric ulcer with perforation Status: Acute (5) Diarrhea: Qualifiers: Diarrhea type: unspecified type Qualified Code(s): R19.7 - Diarrhea, unspecified Code(s): R19.7 - Diarrhea, unspecified Status: Acute (6) Macrocytic anemia: Code(s): D53.9 - Nutritional anemia, unspecified Status: Acute (7) Cardiac murmur: Code(s): R01.1 - Cardiac murmur, unspecified Status: Acute (8) Ascites: Code(s): R18.8 - Other ascites Status: Acute (9) Megaloblastic anemia: Code(s): D53.1 - Other megaloblastic anemias, not elsewhere classified Status: Acute (10) Obesity (BMI 30.0-34.9): Code(s): E66.9 - Obesity, unspecified Status: Acute (11) Chronic alcohol abuse: Code(s): F10.10 - Alcohol abuse, uncomplicated Status: Acute (12) Acute hyponatremia: Code(s): E87.1 - Hypo-osmolality and hyponatremia Status: Acute (13) Colitis: Code(s): K52.9 - Noninfective gastroenteritis and colitis, unspecified Status: Acute (14) Acute hypokalemia: Code(s): E87.6 - Hypokalemia Status: Acute Plan 53-year-old female past medical history obesity, active and chronic heavy alcohol use, tobacco abuse, irritable bowel syndrome, hypertension presenting with shoulder pain which progressed to abdominal pain. She has had diarrhea for some time but had increasing profuse diarrhea which was green/dark. ED evaluation demonstrated gastric ulcer and colitis so this patient was admitted for further workup. On 06/24 the patient underwent EGD which demonstrated a single deep ulcer the gastric and antrum with perforation. Biopsies deferred. Colonoscopy canceled. On 06/25 the patient underwent exploratory laparotomy with repair perforated gastric antral ulcer with modified omentum Cheo patch. #Perforated gastric ulcer -status post exploratory laparotomy with gastric ulcer of the antrum repair with a Cheo patch on 06/25 -patient doing relatively well after surgery. She is currently on Dilaudid q.4 hours p.r.n. -IV fluids have been discontinued. Continue Protonix b.i.d.. She should be discharged on this. -small-bowel follow-through negative for extravasation on 06/26. NG tube removed. Patient tolerating clear liquid diet. OSCAR drain with serous drainage. Surgery to manage. #leukocytosis -multifactorial due to large bowel surgery gastric ulcer and colitis. This is persistent procalcitonin is 0.5. Procalcitonin can be elevated and large bowel surgeries. However, considering her cough and rhonchi on the left will repeat chest x-ray and continue Zosyn. #Colitis -infectious versus inflammatory. Patient has a longstanding history of diarrhea and irritable bowel syndrome. No biopsies taken from GI due to gastric ulcer. Follow-up with GI as outpatient she will need colonoscopy and repeat EGD as well. #Acute hypokalemia -potassium 2.9. Magnesium not checked, will check. -resolved status post replacement #Acute hyponatremia -118 on admission. Has improved appropriately status post volume resuscitation supporting the hypovolemic hypotonic hyponatremia. However was also on HCTZ at home and has been abusing alcohol. -nephrology following. #Chronic alcohol
--- NOTE | 2023-06-29 12:11 | WPDGIPROGNO ---
Progress Note: A&P Assessment and Plan (1) Perforated gastric ulcer: Code(s): K25.5 - Chronic or unspecified gastric ulcer with perforation Status: Acute Assessment and Plan: found during EGD- then taken to OR, underwent Exploratory laparotomy with repair of perforated gastric antral ulcer with modified omentum Cheo patch UGI series reviewed, no leak Continue with IV protonix and abx, then will need protonix twice daily by mouth surgery is planning to advance diet then we will arrange EGD in 3-4 months (I did not take biopsies- colonoscopy also can be scheduled same time since she never had one) will follow from afar (2) Epigastric pain: Code(s): R10.13 - Epigastric pain Status: Acute Assessment and Plan: improved, feeling much better (3) Chronic alcohol abuse: Code(s): F10.10 - Alcohol abuse, uncomplicated Status: Acute (4) Acute hyponatremia: Code(s): E87.1 - Hypo-osmolality and hyponatremia Status: Acute Assessment and Plan: improved (5) NSAID long-term use: Code(s): Z79.1 - rodent exterminator (current) use of non-steroidal anti-inflammatories (NSAID) Status: Acute Assessment and Plan: discontinued Subjective Date/time seen: 06/29/23 12:11 Interval history: continues to feel better, more comfortable and tolerating liquid diet Review of Systems Review of Systems: All systems reviewed & are unremarkable except as noted in HPI and below Exam Const: General: comfortable and no acute distress HENMT: Face/Nose/Sinus: Normal nares present Eyes: Sclera: sclerae normal Neck: Neck: supple Resp: Effort & Inspection: normal respiratory effort Cardio: Rate: regular rate GI: Inspection: other (Mildly distended) GI Palp: Yes Soft to palpation, No Guarding due to palpation present (GI) and Yes Other GI palpation findings present (OSCAR drain with minimal serosanguineous drainage) Auscultation: normal bowel sounds Skin: General skin exam: normal color Neuro: Speech: normal speech Motor exam (neuro): 5/5 motor strength present throughout Extrem: General: normal to inspection Psych: Mental Status: mental status grossly normal Objective Data Vital Signs Vital Signs: Vital Signs - 24 hr 06/28/23 14:00 06/28/23 16:00 06/28/23 16:00 Temperature Pulse Rate 120 H 126 H Respiratory Rate Blood Pressure Pulse Oximetry Oxygen Delivery Room Air 06/28/23 16:20 06/28/23 18:00 06/28/23 20:00 Temperature 97.4 F L 98 F Pulse Rate 113 H 124 H 128 H Respiratory Rate 20 16 Blood Pressure 151/88 H 149/72 H Pulse Oximetry 96 92 Oxygen Delivery 06/28/23 20:00 06/28/23 20:00 06/28/23 22:00 Temperature Pulse Rate 127 H 120 H Respiratory Rate Blood Pressure Pulse Oximetry Oxygen Delivery Room Air 06/28/23 23:41 06/29/23 00:00 06/29/23 00:00 Temperature 97.3 F L Pulse Rate 119 H 110 H Respiratory Rate 16 Blood Pressure 138/75 Pulse Oximetry 96 Oxygen Delivery Room Air 06/29/23 02:00 06/28/23 21:53 06/29/23 04:31 Temperature 97.3 F L Pulse Rate 101 H 102 H Respiratory Rate 16 Blood Pressure 113/75 Pulse Oximetry 96 94 Oxygen Delivery Room Air 06/29/23 04:00 06/29/23 04:00 06/29/23 06:00 Temperature Pulse Rate 96 112 H Respiratory Rate Blood Pressure Pulse Oximetry Oxygen Delivery Room Air 06/29/23 08:00 06/29/23 08:04 06/29/23 08:00 Temperature 98.1 F Pulse Rate 101 H 102 H Respiratory Rate 16 Blood Pressure 129/67 Pulse Oximetry 94 94 Oxygen Delivery Room Air 06/29/23 10:00 06/29/23 12:00 Temperature 99.0 F Pulse Rate 106 H 114 H Respiratory Rate 16 Blood Pressure 136/53 L Pulse Oximetry 96 Oxygen Delivery Intake/Output Intake/Output: Intake & Output 06/26/23 06/27/23 06/28/23 06/29/23 23:59 23:59 23:59 23:59 Intake Total 025 740 2423.7 860 Output Total 915 1045 1090 25 Balance -175 -
[2023-06-29] MEDS: oxyCODONE HCL (*CRX) 5 MG TAB IR PO (14:17)
[2023-06-29] MEDS: SUCRALFATE 1 GM TABLET PO ×2 (16:51→20:39)
[2023-06-29 17:19] LABS: Appearance Urine Clear (Clear); Bilirubin Urine Negative (Negative); Blood Urine Negative (Negative); Color Urine Yellow (Yellow); Glucose Urine UA Negative (Negative); Ketones Urine Negative (Negative); Leukocyte Esterase Ur Negative LEU/UL (Negative); Nitrate Urine Negative (Negative); Protein Urine Negative (Negative); Specific Grav Ur 1.012 (1.001-1.035); Urobilinogen Urine 0.2 mg/dL (<2.0)
[2023-06-29 17:20] LABS: Add Urine Microscopic? NO
[2023-06-29] MEDS: ACETAMINOPHEN 325 MG TABLET 650 MG PO (18:06)
[2023-06-29] MEDS: CEFEPIME 2 GM/NS 50 ML 2 GM/50 ML BAG IVPB (19:57)
[2023-06-29 20:17] LABS: MRSA (PCR) NOT DETECTED (NOT DETECTE)
[2023-06-29] MEDS: VANCOMYCIN 1,250 MG/NS 250 ML 1,250 MG/250 ML BAG 166.67 MG IVPB (20:39)
[2023-06-29] MEDS: LOSARTAN POTASSIUM 100 MG TABLET PO (20:39)
--- NOTE | 2023-06-29 21:49 | PC.NURSE ---
This patient, Acacia Sorto, was transferred to [facility] on 06/29/23 at 2149. Personal belongings sent with patient. Report given to [email or web address]. Appropriate documentation sent with patient.
[2023-06-29] MEDS: VANCOMYCIN 1,000 MG/NS 250 ML 1,000 MG/250 ML BAG 125 MG IVPB (22:21)
[2023-06-30] VITALS (9 sets, daily range): BP systolic 123–133; BP diastolic 50–69; PULSE 89–108; RESP 16–20; TEMP 36.2–36.8; O2SAT 91–96
[2023-06-30] MEDS: CEFEPIME 2 GM/NS 50 ML 2 GM/50 ML BAG IVPB ×2 (01:35→10:13)
[2023-06-30] MEDS: metroNIDAZOLE 500 MG/ISO 100ML 500 MG/100 ML BAG 100 MG IVPB ×2 (02:08→10:42)
[2023-06-30] MEDS: SUCRALFATE 1 GM TABLET PO ×4 (05:51→21:19)
[2023-06-30] MEDS: MAG HYDROX/AL HYDROX/SIMETH 30 ML UDC PO ×3 (05:51→21:19)
[2023-06-30 06:06] LABS: Basophils Absolute Auto 0.1 K/mm3 (0.0-0.1); Basophils Percent Auto 0.7 % (0.2-1.2); Eosinophils Absolute Auto 0.5 K/mm3 (0-0.3); Hematocrit 26.4 % (37.0-47.0); Hemoglobin 8.8 g/dL (12.0-15.0); Immature Granulocyte Absolute 0.28 K/mm3 (0.00-0.031); Immature Granulocyte Percent A 1.9 % (0-0.5); Lymphocytes Absolute Auto 1.06 K/mm3 (0.9-3.2); Lymphocytes Percent Auto 7.2 % (18.3-44.2); Mean Corpuscular HGB Conc 33.3 g/dl (32-36); Mean Corpuscular Hemoglobin 37.3 pg (26-34); Mean Corpuscular Volume 111.9 fl (80-100); Mean Platelet Volume 9.6 fl (7.4-10.4); Monocytes Absolute Auto 1.1 K/mm3 (0.1-0.6); Monocytes Percent Auto 7.3 % (2.6-8.5); Neutrophils Absolute Auto 11.8 K/mm3 (1.3-6.7); Neutrophils Percent Auto 79.9 % (45.5-73.1); Platelet Count Result 344 k/mm3 (150-375); Red Blood Count 2.36 M/mm3 (4.2-5.4); Red Cell Distribution Width 12.9 % (11.5-14.5); White Blood Count 14.8 K/mm3 (4.5-10.0)
[2023-06-30 06:52] LABS: Anion Gap 2 mmol/L (4-12); Blood Urea Nitrogen 2 mg/dL (7-17); Calcium 8.4 mg/dL (8.4-10.2); Carbon Dioxide 23 mmol/L (22-30); Chloride 107 mmol/L (98-107); Estimated CRCL calculation 134 ml/min; Estimated Glomerular Filt Rate > 60; Glucose 78 mg/dL (65-110); Magnesium 1.5 mg/dL (1.6-2.3); Potassium 3.5 mmol/L (3.4-5.0); Sodium 132 mmol/L (137-145)
[2023-06-30] MEDS: VANCOMYCIN 1,500 MG/NS 500 ML 1,500 MG/500 ML BAG 250 MG IVPB (07:19)
[2023-06-30] MEDS: oxyCODONE HCL (*CRX) 5 MG TAB IR 10 MG PO ×2 (07:19→21:25)
[2023-06-30 07:35] LABS: Procalcitonin 0.3 ng/mL
[2023-06-30] MEDS: PANTOPRAZOLE SODIUM IV 40 MG VIAL IV PUSH ×2 (07:49→21:19)
[2023-06-30] MEDS: CHOLECALCIFEROL 1,000 UNITS TABLET 2000 UNITS PO (07:50)
[2023-06-30] MEDS: FOLIC ACID 1 MG TABLET PO (07:50)
[2023-06-30] MEDS: ENOXAPARIN 40 MG/0.4 ML SYRINGE SUB-Q (07:50)
[2023-06-30] MEDS: THIAMINE HCL 100 MG TABLET PO (07:50)
[2023-06-30 08:02] LABS: Anisocytosis 1+; Burr Cells 1+; Platelet Estimate Adequate (Adequate); Schistocytes None Seen
[2023-06-30] MEDS: FLUCONAZOLE 100 MG/NACL 50 ML 100 MG/50 ML BTL 50 MG IVPB (09:17)
--- NOTE | 2023-06-30 09:19 | PCNWS ---
Weekly nutritional screen. Patient is tolerating current diet with adequate intake. Advanced to regular diet, intakes 80% dinner. No weight loss reported. No nutritional needs at this time.
[2023-06-30] MEDS: HYDROmorphone HCL INJ (*CRX) 1 MG/ML SYR IV PUSH (10:12)
--- NOTE | 2023-06-30 11:14 | P.PNIM_ITS ---
Progress Note: A&P Assessment and Plan (1) Gastric ulcer: Qualifiers: Gastric ulcer chronicity: acute Gastric ulcer complication status: without hemorrhage or perforation Qualified Code(s): K25.3 - Acute gastric ulcer without hemorrhage or perforation Code(s): K25.9 - Gastric ulcer, unspecified as acute or chronic, without hemorrhage or perforation Status: Acute (2) NSAID long-term use: Code(s): Z79.1 - terminal clerk (current) use of non-steroidal anti-inflammatories (NSAID) Status: Acute (3) Epigastric pain: Code(s): R10.13 - Epigastric pain Status: Acute (4) Perforated gastric ulcer: Code(s): K25.5 - Chronic or unspecified gastric ulcer with perforation Status: Acute (5) Diarrhea: Qualifiers: Diarrhea type: unspecified type Qualified Code(s): R19.7 - Diarrhea, unspecified Code(s): R19.7 - Diarrhea, unspecified Status: Acute (6) Macrocytic anemia: Code(s): D53.9 - Nutritional anemia, unspecified Status: Acute (7) Cardiac murmur: Code(s): R01.1 - Cardiac murmur, unspecified Status: Acute (8) Ascites: Code(s): R18.8 - Other ascites Status: Acute (9) Megaloblastic anemia: Code(s): D53.1 - Other megaloblastic anemias, not elsewhere classified Status: Acute (10) Obesity (BMI 30.0-34.9): Code(s): E66.9 - Obesity, unspecified Status: Acute (11) Chronic alcohol abuse: Code(s): F10.10 - Alcohol abuse, uncomplicated Status: Acute (12) Acute hyponatremia: Code(s): E87.1 - Hypo-osmolality and hyponatremia Status: Acute (13) Colitis: Code(s): K52.9 - Noninfective gastroenteritis and colitis, unspecified Status: Acute (14) Acute hypokalemia: Code(s): E87.6 - Hypokalemia Status: Acute Plan 53-year-old female past medical history obesity, active and chronic heavy alcohol use, tobacco abuse, irritable bowel syndrome, hypertension presenting with shoulder pain which progressed to abdominal pain. She has had diarrhea for some time but had increasing profuse diarrhea which was green/dark. ED evaluation demonstrated gastric ulcer and colitis so this patient was admitted for further workup. On 06/24 the patient underwent EGD which demonstrated a single deep ulcer the gastric and antrum with perforation. Biopsies deferred. Colonoscopy canceled. On 06/25 the patient underwent exploratory laparotomy with repair perforated gastric antral ulcer with modified omentum Cheo patch. #Perforated gastric ulcer -status post exploratory laparotomy with gastric ulcer of the antrum repair with a Cheo patch on 06/25 -patient doing relatively well after surgery. She is currently on Dilaudid q.4 hours p.r.n. -IV fluids have been discontinued. Continue Protonix b.i.d.. She should be discharged on this. -small-bowel follow-through negative for extravasation on 06/26. NG tube removed. Patient tolerating clear liquid diet. OSCAR drain with serous drainage. Surgery to manage. #leukocytosis -multifactorial due to large bowel surgery gastric ulcer and colitis. This is persistent procalcitonin is 0.5. Procalcitonin can be elevated and large bowel surgeries. However, considering her cough and rhonchi on the left will repeat chest x-ray and continue Zosyn. #Colitis -infectious versus inflammatory. Patient has a longstanding history of diarrhea and irritable bowel syndrome. No biopsies taken from GI due to gastric ulcer. Follow-up with GI as outpatient she will need colonoscopy and repeat EGD
[2023-06-30] MEDS: oxyCODONE HCL (*CRX) 5 MG TAB IR PO (11:41)
--- NOTE | 2023-06-30 12:40 | PM.PNGS ---
Progress Note: A&P Assessment and Plan (1) Perforated gastric ulcer: Code(s): K25.5 - Chronic or unspecified gastric ulcer with perforation Status: Acute Assessment and Plan: Continue antibiotics, Protonix, and Carafate Tolerating a regular diet Continue to monitor OSCAR drain, but will plan to remove prior to discharge More LLQ pain today with slight increase in WBC and fever last night. Will repeat labs again tomorrow and consider repeating a CT scan of the abdomen and pelvis if WBC count is trending up. Plan I have discussed the patient's case and plan of care with Dr. Castro. Subjective Subjective Date/Time Seen: 06/30/23 12:40 Patient reports: still having pain, flatus, bowel movement and fever (101F last night ) Interval history: Patient seen today. She is complaining of more abdominal pain today than yesterday and now it is in her LLQ and LUQ. She also had a fever of 101F last night around 6 pm. Bowels moving. Tolerating a regular diet and ate well yesterday. No other complaints at this time. WBC up slightly to 14k from 13k yesterday. Exam Const: General: comfortable and no acute distress GI: Inspection: non-distended, incision (intact with car, no erythema or drainage) and other (OSCAR drain with serous drainage) GI Palp: Yes Soft to palpation, Yes Tenderness to palpation present (GI) (mild LLQ and LUQ tenderness), No Guarding due to palpation present (GI) and No Rebound tenderness present Auscultation: normal bowel sounds Objective Data Vital Signs Vital Signs: Vital Signs - 24 hr 06/29/23 14:30 06/29/23 16:00 06/29/23 18:06 Temperature 101.0 F H 101 F H Pulse Rate 104 H 102 H Respiratory Rate 16 Blood Pressure 133/79 Pulse Oximetry 95 Oxygen Delivery 06/29/23 16:00 06/29/23 18:00 06/29/23 19:06 Temperature 97.6 F Pulse Rate 108 H 105 H Respiratory Rate Blood Pressure Pulse Oximetry Oxygen Delivery 06/29/23 20:20 06/29/23 20:00 06/29/23 20:00 Temperature 97.6 F Pulse Rate 114 H 108 H Respiratory Rate 20 Blood Pressure 146/73 H Pulse Oximetry 95 Oxygen Delivery Room Air 06/30/23 00:00 06/30/23 04:00 06/30/23 04:47 Temperature 97.2 F L Pulse Rate 106 H 89 108 H Respiratory Rate 20 Blood Pressure 133/68 Pulse Oximetry 91 Oxygen Delivery 06/30/23 08:00 06/30/23 08:00 06/30/23 12:00 Temperature Pulse Rate 99 95 Respiratory Rate Blood Pressure Pulse Oximetry Oxygen Delivery Room Air Intake/Output Intake/Output: Intake & Output 06/27/23 06/28/23 06/29/23 06/30/23 23:59 23:59 23:59 23:59 Intake Total 985 5191.7 2120 1490 Output Total 1045 1090 851 Balance -60 4101.7 1269 1490 Meds/Results Medications: Active Medications Generic Name Dose Route Start Last Admin Trade Name Freq PRN Reason Stop Dose Admin Acetaminophen 650 mg 06/24/23 04:13 06/29/23 18:06 Acetaminophen 325 Mg Tablet PO 650 mg Q6H PRN Administration Pain 1-3 or fever Al Hydrox/Mg Hydrox/Simethicone 30 ml 06/25/23 23:35 06/30/23 05:51 Mag Hydrox/Al Hydrox/Simeth 30 Ml Udc PO 30 ml Q8HR CELI Administration Enoxaparin Sodium 40 mg 06/26/23 09:00 06/30/23 07:50 Enoxaparin 40 Mg/0.4 Ml Syringe SUB-Q 40 mg DAILY CELI Administration Folic Acid 1 mg 06/24/23 09:00 06/30/23 07:50 Folic Acid 1 Mg Tablet PO 1 mg DAILY CELI Administration Hydromorphone HCl 0.5 mg 06/26/23 13:36 06/27/23 15:32 Hydromorphone Hcl Inj (*Crx) 1 Mg/Ml Syr IV PUSH 0.5 mg Q4HR PRN Administration Pain Rated 4-6 Hydromorphone HCl 1 mg 06/26/23 13:39 06/30/23 10:12 Hydromorphone Hcl Inj (*Crx) 1 Mg/Ml Syr IV PUSH 1 mg Q4H PRN Administration Pain Rated 7-10 Fluconazole/Dextrose 100 mg in 50 mls @ 50 mls/hr 06/25/23 16:00 06/30/23 10:17 Diflucan 100 Mg/Nacl 50 Ml IVPB Infused DAILY CELI Infusion Cefepime HCl 2 gm in 50 mls @ 100 mls/hr 06/29/23 18:00 06/30/23
[2023-06-30] MEDS: MAGNESIUM SULF 2 GM/WATER 50ML 2 GM/50 ML BAG IVPB (13:18)
[2023-06-30] MEDS: PIPERACILLIN/TAZ 4.5G/NS 100ML 4.5 GM/100 ML BAG IVPB ×3 (15:18→23:32)
[2023-06-30] MEDS: LOSARTAN POTASSIUM 100 MG TABLET PO (21:19)
[2023-07-01] VITALS (8 sets, daily range): BP systolic 113–128; BP diastolic 52–53; PULSE 85–105; RESP 18; TEMP 36.6–36.9; O2SAT 92–100
[2023-07-01] MEDS: oxyCODONE HCL (*CRX) 5 MG TAB IR 10 MG PO ×2 (05:19→18:51)
[2023-07-01] MEDS: MAG HYDROX/AL HYDROX/SIMETH 30 ML UDC PO ×3 (05:19→21:05)
[2023-07-01] MEDS: SUCRALFATE 1 GM TABLET PO ×4 (05:19→21:05)
[2023-07-01] MEDS: PIPERACILLIN/TAZ 4.5G/NS 100ML 4.5 GM/100 ML BAG IVPB ×4 (05:20→23:25)
[2023-07-01 05:45] LABS: Basophils Absolute Auto 0.1 K/mm3 (0.0-0.1); Basophils Percent Auto 0.6 % (0.2-1.2); Eosinophils Absolute Auto 0.3 K/mm3 (0-0.3); Hematocrit 26.8 % (37.0-47.0); Hemoglobin 9.2 g/dL (12.0-15.0); Immature Granulocyte Percent A 2.5 % (0-0.5); Lymphocytes Absolute Auto 1.28 K/mm3 (0.9-3.2); Lymphocytes Percent Auto 8.1 % (18.3-44.2); Mean Corpuscular HGB Conc 34.3 g/dl (32-36); Mean Corpuscular Hemoglobin 37.9 pg (26-34); Mean Corpuscular Volume 110.3 fl (80-100); Mean Platelet Volume 9.8 fl (7.4-10.4); Monocytes Absolute Auto 0.9 K/mm3 (0.1-0.6); Monocytes Percent Auto 5.9 % (2.6-8.5); Neutrophils Absolute Auto 12.7 K/mm3 (1.3-6.7); Neutrophils Percent Auto 80.9 % (45.5-73.1); Platelet Count Result 399 k/mm3 (150-375); Red Blood Count 2.43 M/mm3 (4.2-5.4); Red Cell Distribution Width 12.9 % (11.5-14.5); White Blood Count 15.7 K/mm3 (4.5-10.0)
[2023-07-01 05:57] LABS: Alanine Aminotransferase 11 U/L (6-35); Albumin Level 2.9 g/dL (3.5-5.1); Alkaline Phosphatase 98 U/L (38-126); Anion Gap 4 mmol/L (4-12); Aspartate Amino Transferase 21 U/L (14-36); Bilirubin,Total 0.5 mg/dL (0.2-1.3); Blood Urea Nitrogen 3 mg/dL (7-17); Calcium 8.5 mg/dL (8.4-10.2); Carbon Dioxide 25 mmol/L (22-30); Chloride 102 mmol/L (98-107); Estimated CRCL calculation 95 ml/min; Estimated Glomerular Filt Rate > 60; Glucose 82 mg/dL (65-110); Magnesium 1.8 mg/dL (1.6-2.3); Sodium 131 mmol/L (137-145)
[2023-07-01 06:34] LABS: Macrocytosis 1+ (NORMAL); Platelet Estimate Increased (Adequate); Schistocytes None Seen
[2023-07-01] MEDS: ENOXAPARIN 40 MG/0.4 ML SYRINGE SUB-Q (08:47)
[2023-07-01] MEDS: THIAMINE HCL 100 MG TABLET PO (08:47)
[2023-07-01] MEDS: CHOLECALCIFEROL 1,000 UNITS TABLET 2000 UNITS PO (08:47)
[2023-07-01] MEDS: PANTOPRAZOLE SODIUM IV 40 MG VIAL IV PUSH ×2 (08:47→21:05)
[2023-07-01] MEDS: FOLIC ACID 1 MG TABLET PO (08:47)
--- NOTE | 2023-07-01 09:10 | PM.IMPN ---
Progress Note: A&P Assessment and Plan (1) Gastric ulcer: Qualifiers: Gastric ulcer chronicity: acute Gastric ulcer complication status: without hemorrhage or perforation Qualified Code(s): K25.3 - Acute gastric ulcer without hemorrhage or perforation Code(s): K25.9 - Gastric ulcer, unspecified as acute or chronic, without hemorrhage or perforation Status: Acute (2) NSAID long-term use: Code(s): Z79.1 - termite control service representative (current) use of non-steroidal anti-inflammatories (NSAID) Status: Acute (3) Epigastric pain: Code(s): R10.13 - Epigastric pain Status: Acute (4) Perforated gastric ulcer: Code(s): K25.5 - Chronic or unspecified gastric ulcer with perforation Status: Acute (5) Diarrhea: Qualifiers: Diarrhea type: unspecified type Qualified Code(s): R19.7 - Diarrhea, unspecified Code(s): R19.7 - Diarrhea, unspecified Status: Acute (6) Macrocytic anemia: Code(s): D53.9 - Nutritional anemia, unspecified Status: Acute (7) Cardiac murmur: Code(s): R01.1 - Cardiac murmur, unspecified Status: Acute (8) Ascites: Code(s): R18.8 - Other ascites Status: Acute (9) Megaloblastic anemia: Code(s): D53.1 - Other megaloblastic anemias, not elsewhere classified Status: Acute (10) Obesity (BMI 30.0-34.9): Code(s): E66.9 - Obesity, unspecified Status: Acute (11) Chronic alcohol abuse: Code(s): F10.10 - Alcohol abuse, uncomplicated Status: Acute (12) Acute hyponatremia: Code(s): E87.1 - Hypo-osmolality and hyponatremia Status: Acute (13) Colitis: Code(s): K52.9 - Noninfective gastroenteritis and colitis, unspecified Status: Acute (14) Acute hypokalemia: Code(s): E87.6 - Hypokalemia Status: Acute Plan 53-year-old female past medical history obesity, active and chronic heavy alcohol use, tobacco abuse, irritable bowel syndrome, hypertension presenting with shoulder pain which progressed to abdominal pain. She has had diarrhea for some time but had increasing profuse diarrhea which was green/dark. ED evaluation demonstrated gastric ulcer and colitis so this patient was admitted for further workup. On 06/24 the patient underwent EGD which demonstrated a single deep ulcer the gastric and antrum with perforation. Biopsies deferred. Colonoscopy canceled. On 06/25 the patient underwent exploratory laparotomy with repair perforated gastric antral ulcer with modified omentum Cheo patch. #Perforated gastric ulcer -status post exploratory laparotomy with gastric ulcer of the antrum repair with a Cheo patch on 06/25 -patient doing relatively well after surgery. She is currently on Dilaudid q.4 hours p.r.n. -IV fluids have been discontinued. Continue Protonix b.i.d.. She should be discharged on this. -small-bowel follow-through negative for extravasation on 06/26. NG tube removed. Patient tolerating clear liquid diet. OSCAR drain with serous drainage. Surgery to manage. #leukocytosis -multifactorial due to large bowel surgery gastric ulcer and colitis. Also resulting from multifocal pneumonia This is persistent procalcitonin is 0.5. Procalcitonin can be elevated and large bowel surgeries. continue Zosyn. f/u c. diff Multifocal pneumonia CT suggests bilateral multifocal pneumonia Patient is on Zosyn Aspiration precaution #Colitis -infectious versus inflammatory. Patient has a longstanding history of diarrhea and irritable bowel syndrome. No biopsies taken from GI due to gastric ulcer. Follow-up with GI as outpatient she will need colonoscopy and repeat EGD as well. #Acute hypokalemia replete with potassium chloride follow-up BMP #Acute hyponatremia -118 on admission. Has improved appropriately status post volume resuscitation supporting the hypovolemic hypotonic hyponatremia. However was also on HCTZ at home and has been abusing
[2023-07-01] MEDS: POTASSIUM CHLORIDE INJ 40 MEQ in SODIUM CHLORIDE 0.9% IV 500 ML 130 MEQ IVPB (09:41)
[2023-07-01] MEDS: FLUCONAZOLE 100 MG/NACL 50 ML 100 MG/50 ML BTL 50 MG IVPB (09:42)
[2023-07-01 14:44] LABS: Toxigenic C. Diff NEGATIVE (NEGATIVE)
--- NOTE | 2023-07-01 16:03 | PM.PNGS ---
Progress Note: A&P Assessment and Plan (1) Perforated gastric ulcer: Code(s): K25.5 - Chronic or unspecified gastric ulcer with perforation Status: Acute Assessment and Plan: Continue antibiotics, Protonix, and Carafate. Currently on IV Zosyn and fluconazole. Continue to monitor OSCAR drain, but will plan to remove prior to discharge. Tolerating a regular diet. WBC up to 15,000 today from 14,000. CT scan of the abdomen and pelvis ordered with IV contrast today. No abscess or acute intraabdominal findings that would cause the leukocytosis. CT findings of multifocal pneumonia. Plan I have discussed the patient's case and plan of care with Dr. Castro. Subjective Subjective Date/Time Seen: 07/01/23 16:03 Patient reports: no new complaints, flatus, bowel movement and afebrile (since 06/28) Interval history: Patient feels about the same today. She reports incisional pain and LUQ pain near the OSCAR drain that is intermittent. She feels it is a little better today. No nausea or vomiting. Tolerating her diet. Tolerating activity. She does report today feeling slightly short of breath with activity and has noticed more of a cough. No other complaints at this time. WBC up slightly to 15k today. Exam Const: General: comfortable and no acute distress Orientation/consciousness: patient oriented x3 GI: Inspection: non-distended, incision (intact with car, no erythema or drainage) and other (OSCAR drain with serous drainage) GI Palp: Yes Soft to palpation, Yes Tenderness to palpation present (GI) (incisional, LUQ) and No Guarding due to palpation present (GI) Auscultation: normal bowel sounds Objective Data Vital Signs Vital Signs: Vital Signs - 24 hr 06/30/23 20:00 06/30/23 20:00 06/30/23 23:57 Temperature 98.2 F Pulse Rate 102 H 103 H 99 Respiratory Rate 18 16 Blood Pressure 125/69 Pulse Oximetry 93 96 Oxygen Delivery Room Air 07/01/23 00:00 07/01/23 04:00 07/01/23 05:00 Temperature 97.9 F Pulse Rate 99 89 100 Respiratory Rate 18 Blood Pressure 128/53 L Pulse Oximetry 92 Oxygen Delivery 07/01/23 08:00 07/01/23 08:50 07/01/23 12:05 Temperature Pulse Rate 85 98 Respiratory Rate Blood Pressure Pulse Oximetry Oxygen Delivery Room Air 07/01/23 14:00 Temperature 98.5 F Pulse Rate 105 H Respiratory Rate 18 Blood Pressure 113/52 L Pulse Oximetry 100 Oxygen Delivery Intake/Output Intake/Output: Intake & Output 06/28/23 06/29/23 06/30/23 07/01/23 23:59 23:59 23:59 23:59 Intake Total 5191.7 2120 3680 1460 Output Total 1090 873 194 7203 Balance 4101.7 4919 5629 -790 Meds/Results Medications: Active Medications Generic Name Dose Route Start Last Admin Trade Name Freq PRN Reason Stop Dose Admin Acetaminophen 650 mg 06/24/23 04:13 06/29/23 18:06 Acetaminophen 325 Mg Tablet PO 650 mg Q6H PRN Administration Pain 1-3 or fever Al Hydrox/Mg Hydrox/Simethicone 30 ml 06/25/23 23:35 07/01/23 14:13 Mag Hydrox/Al Hydrox/Simeth 30 Ml Udc PO 30 ml Q8HR CELI Administration Enoxaparin Sodium 40 mg 06/26/23 09:00 07/01/23 08:47 Enoxaparin 40 Mg/0.4 Ml Syringe SUB-Q 40 mg DAILY CELI Administration Folic Acid 1 mg 06/24/23 09:00 07/01/23 08:47 Folic Acid 1 Mg Tablet PO 1 mg DAILY CELI Administration Hydromorphone HCl 0.5 mg 06/26/23 13:36 06/27/23 15:32 Hydromorphone Hcl Inj (*Crx) 1 Mg/Ml Syr IV PUSH 0.5 mg Q4HR PRN Administration Pain Rated 4-6 Hydromorphone HCl 1 mg 06/26/23 13:39 06/30/23 10:12 Hydromorphone Hcl Inj (*Crx) 1 Mg/Ml Syr IV PUSH 1 mg Q4H PRN Administration Pain Rated 7-10 Fluconazole/Dextrose 100 mg in 50 mls @ 50 mls/hr 06/25/23 16:00 07/01/23 09:42 Diflucan 100 Mg/Nacl 50 Ml IVPB 50 mls/hr DAILY CELI Administration Piperacillin Sod/Tazobactam Sod 4.5 gm in 100 mls @ 200 mls/hr 06/30/23 14:00 07/01/23 12:03 Zosyn 4.5 Gm/Ns 100 Ml IVPB 125 mls/hr Q
[2023-07-01] MEDS: LOSARTAN POTASSIUM 100 MG TABLET PO (21:05)
[2023-07-01] MEDS: oxyCODONE HCL (*CRX) 5 MG TAB IR PO (23:25)
[2023-07-02] VITALS (8 sets, daily range): BP systolic 107–117; BP diastolic 53–68; PULSE 87–104; RESP 14–18; TEMP 36.3–37; O2SAT 93–98
[2023-07-02] MEDS: MAG HYDROX/AL HYDROX/SIMETH 30 ML UDC PO ×3 (05:23→21:26)
[2023-07-02] MEDS: oxyCODONE HCL (*CRX) 5 MG TAB IR PO ×3 (05:23→23:27)
[2023-07-02] MEDS: PIPERACILLIN/TAZ 4.5G/NS 100ML 4.5 GM/100 ML BAG IVPB ×2 (05:23→12:10)
[2023-07-02] MEDS: SUCRALFATE 1 GM TABLET PO ×4 (05:23→21:27)
[2023-07-02] MEDS: CHOLECALCIFEROL 1,000 UNITS TABLET 2000 UNITS PO (08:06)
[2023-07-02] MEDS: PANTOPRAZOLE SODIUM IV 40 MG VIAL IV PUSH (08:06)
[2023-07-02] MEDS: ENOXAPARIN 40 MG/0.4 ML SYRINGE SUB-Q (08:06)
[2023-07-02] MEDS: THIAMINE HCL 100 MG TABLET PO (08:06)
[2023-07-02] MEDS: FOLIC ACID 1 MG TABLET PO (08:06)
[2023-07-02] MEDS: FLUCONAZOLE 100 MG/NACL 50 ML 100 MG/50 ML BTL 50 MG IVPB (09:08)
--- NOTE | 2023-07-02 09:58 | PM.IMPN ---
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 non-steroidal anti-inflammatories (NSAID) Status: Acute (3) Epigastric pain: Code(s): R10.13 - Epigastric pain Status: Acute (4) Perforated gastric ulcer: Code(s): K25.5 - Chronic or unspecified gastric ulcer with perforation Status: Acute (5) Diarrhea: Qualifiers: Diarrhea type: unspecified type Qualified Code(s): R19.7 - Diarrhea, unspecified Code(s): R19.7 - Diarrhea, unspecified Status: Acute (6) Macrocytic anemia: Code(s): D53.9 - Nutritional anemia, unspecified Status: Acute (7) Cardiac murmur: Code(s): R01.1 - Cardiac murmur, unspecified Status: Acute (8) Ascites: Code(s): R18.8 - Other ascites Status: Acute (9) Megaloblastic anemia: Code(s): D53.1 - Other megaloblastic anemias, not elsewhere classified Status: Acute (10) Obesity (BMI 30.0-34.9): Code(s): E66.9 - Obesity, unspecified Status: Acute (11) Chronic alcohol abuse: Code(s): F10.10 - Alcohol abuse, uncomplicated Status: Acute (12) Acute hyponatremia: Code(s): E87.1 - Hypo-osmolality and hyponatremia Status: Acute (13) Colitis: Code(s): K52.9 - Noninfective gastroenteritis and colitis, unspecified Status: Acute (14) Acute hypokalemia: Code(s): E87.6 - Hypokalemia Status: Acute Plan 53-year-old female past medical history obesity, active and chronic heavy alcohol use, tobacco abuse, irritable bowel syndrome, hypertension presenting with shoulder pain which progressed to abdominal pain. She has had diarrhea for some time but had increasing profuse diarrhea which was green/dark. ED evaluation demonstrated gastric ulcer and colitis so this patient was admitted for further workup. On 06/24 the patient underwent EGD which demonstrated a single deep ulcer the gastric and antrum with perforation. Biopsies deferred. Colonoscopy canceled. On 06/25 the patient underwent exploratory laparotomy with repair perforated gastric antral ulcer with modified omentum Cheo patch. #Perforated gastric ulcer -status post exploratory laparotomy with gastric ulcer of the antrum repair with a Cheo patch on 06/25 -patient doing relatively well after surgery. She is currently on Dilaudid q.4 hours p.r.n. -IV fluids have been discontinued. Continue Protonix b.i.d.. She should be discharged on this. -small-bowel follow-through negative for extravasation on 06/26. NG tube removed. Patient tolerating clear liquid diet. OSCAR drain with serous drainage. Surgery to manage. #leukocytosis -multifactorial due to large bowel surgery gastric ulcer and colitis. Also resulting from multifocal pneumonia This is persistent procalcitonin is 0.5. Procalcitonin can be elevated and large bowel surgeries. continue Zosyn. f/u c. diff Multifocal pneumonia CT suggests bilateral multifocal pneumonia Patient is on Zosyn Aspiration precaution changed to Augmentin p.o. 07/01 #Colitis -infectious versus inflammatory. Patient has a longstanding history of diarrhea and irritable bowel syndrome. No biopsies taken from GI due to gastric ulcer. Follow-up with GI as outpatient she will need colonoscopy and repeat EGD as well. #Acute hypokalemia replete with potassium chloride follow-up BMP #Acute hyponatremia -118 on admission. Has improved appropriately status post volume resuscitation supporting the hypovolemic hypotonic hyponatremia. However was also on H
[2023-07-02 10:57] LABS: Basophils Absolute Auto 0.1 K/mm3 (0.0-0.1); Basophils Percent Auto 0.6 % (0.2-1.2); Eosinophils Absolute Auto 0.3 K/mm3 (0-0.3); Eosinophils Percent Auto 2.6 % (0-4.4); Hematocrit 25.5 % (37.0-47.0); Hemoglobin 8.5 g/dL (12.0-15.0); Immature Granulocyte Absolute 0.34 K/mm3 (0.00-0.031); Immature Granulocyte Percent A 2.7 % (0-0.5); Lymphocytes Absolute Auto 1.26 K/mm3 (0.9-3.2); Lymphocytes Percent Auto 10.1 % (18.3-44.2); Mean Corpuscular HGB Conc 33.3 g/dl (32-36); Mean Corpuscular Hemoglobin 37.4 pg (26-34); Mean Corpuscular Volume 112.3 fl (80-100); Mean Platelet Volume 9.7 fl (7.4-10.4); Monocytes Absolute Auto 0.7 K/mm3 (0.1-0.6); Monocytes Percent Auto 5.6 % (2.6-8.5); Neutrophils Absolute Auto 9.8 K/mm3 (1.3-6.7); Neutrophils Percent Auto 78.4 % (45.5-73.1); Platelet Count Result 492 k/mm3 (150-375); Red Blood Count 2.27 M/mm3 (4.2-5.4); Red Cell Distribution Width 13.3 % (11.5-14.5); White Blood Count 12.5 K/mm3 (4.5-10.0)
[2023-07-02 11:14] LABS: Alanine Aminotransferase 10 U/L (6-35); Albumin Level 2.7 g/dL (3.5-5.1); Alkaline Phosphatase 97 U/L (38-126); Anion Gap 4 mmol/L (4-12); Aspartate Amino Transferase 23 U/L (14-36); Bilirubin,Total 0.4 mg/dL (0.2-1.3); Blood Urea Nitrogen 3 mg/dL (7-17); Calcium 8.7 mg/dL (8.4-10.2); Carbon Dioxide 26 mmol/L (22-30); Chloride 103 mmol/L (98-107); Estimated CRCL calculation 95 ml/min; Estimated Glomerular Filt Rate > 60; Glucose 107 mg/dL (65-110); Magnesium 1.8 mg/dL (1.6-2.3); Phosphorus 2.5 mg/dL (2.5-4.5); Potassium 3.1 mmol/L (3.4-5.0); Sodium 133 mmol/L (137-145)
[2023-07-02 12:20] LABS: Platelet Estimate Slightly Increased (Adequate); Procalcitonin 0.2 ng/mL; Schistocytes None Seen
[2023-07-02 12:21] LABS: Anisocytosis 1+; Hypochromasia 1+
--- NOTE | 2023-07-02 14:03 | PM.PNGS ---
Progress Note: A&P Assessment and Plan (1) Perforated gastric ulcer: Code(s): K25.5 - Chronic or unspecified gastric ulcer with perforation Status: Acute Assessment and Plan: Continue antibiotics, Protonix, and Carafate. Antibiotics and Protonix switched to orals today. Tolerating a regular diet OSCAR drain removed today Okay to discharge from a surgical standpoint. Follow-up with Dr. Castro in 1 week for staple removal. Plan I have discussed the patient's case and plan of care with Dr. Castro. Subjective Subjective Date/Time Seen: 07/02/23 14:03 Patient reports: no new complaints, tolerating a regular diet, flatus, bowel movement and afebrile Interval history: Patient is doing well today. She is getting up and ambulating more. She reports a more productive cough today. Still with some incisional pain, but improving. Pain is well controlled with oral analgesics. She lost IV access and has been switched to oral antibiotics and oral Diflucan. Exam Const: General: comfortable and no acute distress GI: Inspection: non-distended, incision (intact with car, no erythema or drainage) and other (OSCAR drain serous, OSCAR drain and suture removed, gauze dressing applied) GI Palp: Yes Soft to palpation, Yes Tenderness to palpation present (GI) (Mild tenderness near incision and left upper quadrant near drain), No Guarding due to palpation present (GI) and No Rebound tenderness present Auscultation: normal bowel sounds Objective Data Vital Signs Vital Signs: Vital Signs - 24 hr 07/01/23 16:04 07/01/23 20:00 07/01/23 20:00 Temperature Pulse Rate 101 H 101 H 101 H Respiratory Rate 18 Blood Pressure Pulse Oximetry 100 Oxygen Delivery Room Air 07/02/23 00:00 07/02/23 00:00 07/02/23 04:00 Temperature 97.3 F L Pulse Rate 90 93 87 Respiratory Rate 18 Blood Pressure 107/53 L Pulse Oximetry 93 Oxygen Delivery 07/02/23 08:00 Temperature Pulse Rate Respiratory Rate Blood Pressure Pulse Oximetry Oxygen Delivery Room Air Intake/Output Intake/Output: Intake & Output 06/29/23 06/30/23 07/01/23 07/02/23 23:59 23:59 23:59 23:59 Intake Total 2120 3680 2690 730 Output Total 002 995 3432 515 Balance 1269 3265 440 215 Meds/Results Medications: Active Medications Generic Name Dose Route Start Last Admin Trade Name Freq PRN Reason Stop Dose Admin Acetaminophen 650 mg 06/24/23 04:13 06/29/23 18:06 Acetaminophen 325 Mg Tablet PO 650 mg Q6H PRN Administration Pain 1-3 or fever Al Hydrox/Mg Hydrox/Simethicone 30 ml 06/25/23 23:35 07/02/23 05:23 Mag Hydrox/Al Hydrox/Simeth 30 Ml Udc PO 30 ml Q8HR CELI Administration Amoxicillin/Clavulanate Potassium 1 tablet 07/02/23 12:52 Amoxicillin/Clavulanate K 875-125 Mg Tab PO Q12HR CELI Enoxaparin Sodium 40 mg 06/26/23 09:00 07/02/23 08:06 Enoxaparin 40 Mg/0.4 Ml Syringe SUB-Q 40 mg DAILY CELI Administration Fluconazole 100 mg 07/03/23 09:00 Fluconazole 100 Mg Tablet PO QAM CELI Folic Acid 1 mg 06/24/23 09:00 07/02/23 08:06 Folic Acid 1 Mg Tablet PO 1 mg DAILY CELI Administration Hydromorphone HCl 0.5 mg 06/26/23 13:36 06/27/23 15:32 Hydromorphone Hcl Inj (*Crx) 1 Mg/Ml Syr IV PUSH 0.5 mg Q4HR PRN Administration Pain Rated 4-6 Hydromorphone HCl 1 mg 06/26/23 13:39 06/30/23 10:12 Hydromorphone Hcl Inj (*Crx) 1 Mg/Ml Syr IV PUSH 1 mg Q4H PRN Administration Pain Rated 7-10 Losartan Potassium 100 mg 06/24/23 21:00 07/01/23 21:05 Losartan Potassium 100 Mg Tablet PO 100 mg HS CELI Administration Oxycodone HCl 5 mg 06/28/23 12:38 07/02/23 05:23 Oxycodone Hcl (*Crx) 5 Mg Tab Ir PO 5 mg Q4H PRN Administration Pain Rated 4-6 Oxycodone HCl 10 mg 06/28/23 12:38 07/01/23 18:51 Oxycodone Hcl (*Crx) 5 Mg Tab Ir PO 10 mg Q4H PRN Administration Pain Rated 7-10 Pantoprazole Sodium 40 mg 07/02/23
[2023-07-02] MEDS: AMOXICILLIN/CLAVULANATE K 875-125 MG TAB 1 TABLET PO ×2 (14:31→21:27)
[2023-07-02] MEDS: POTASSIUM CHLORIDE 20 MEQ ER TABLET 40 MEQ PO (14:33)
[2023-07-02] MEDS: LOSARTAN POTASSIUM 100 MG TABLET PO (21:27)
[2023-07-02] MEDS: PANTOPRAZOLE 40 MG TABLET PO (21:27)
[2023-07-02] MEDS: POTASSIUM CHLORIDE 20 MEQ ER TABLET PO (21:27)
[2023-07-03] VITALS: PULSE 93
[2023-07-03 04:00] VITALS: PULSE 82
[2023-07-03 05:22] VITALS: BP 139/67; PULSE 102; RESP 16; TEMP 36.5; O2SAT 92
[2023-07-03] MEDS: MAG HYDROX/AL HYDROX/SIMETH 30 ML UDC PO (05:24)
[2023-07-03] MEDS: oxyCODONE HCL (*CRX) 5 MG TAB IR PO (05:25)
[2023-07-03] MEDS: SUCRALFATE 1 GM TABLET PO ×2 (05:25→12:24)
[2023-07-03 05:56] LABS: Basophils Absolute Auto 0.1 K/mm3 (0.0-0.1); Basophils Percent Auto 0.9 % (0.2-1.2); Eosinophils Absolute Auto 0.3 K/mm3 (0-0.3); Eosinophils Percent Auto 2.7 % (0-4.4); Hematocrit 26.2 % (37.0-47.0); Hemoglobin 8.8 g/dL (12.0-15.0); Immature Granulocyte Percent A 5.1 % (0-0.5); Lymphocytes Absolute Auto 1.67 K/mm3 (0.9-3.2); Lymphocytes Percent Auto 14.2 % (18.3-44.2); Mean Corpuscular HGB Conc 33.6 g/dl (32-36); Mean Corpuscular Hemoglobin 37.3 pg (26-34); Mean Platelet Volume 9.6 fl (7.4-10.4); Monocytes Absolute Auto 0.8 K/mm3 (0.1-0.6); Monocytes Percent Auto 6.7 % (2.6-8.5); Neutrophils Absolute Auto 8.2 K/mm3 (1.3-6.7); Neutrophils Percent Auto 70.4 % (45.5-73.1); Platelet Count Result 547 k/mm3 (150-375); Red Blood Count 2.36 M/mm3 (4.2-5.4); Red Cell Distribution Width 13.2 % (11.5-14.5); White Blood Count 11.7 K/mm3 (4.5-10.0)
[2023-07-03 06:11] LABS: Anion Gap 2 mmol/L (4-12); Calcium 8.7 mg/dL (8.4-10.2); Carbon Dioxide 27 mmol/L (22-30); Chloride 104 mmol/L (98-107); Estimated CRCL calculation 95 ml/min; Estimated Glomerular Filt Rate > 60; Glucose 82 mg/dL (65-110); Magnesium 1.9 mg/dL (1.6-2.3); Phosphorus 2.4 mg/dL (2.5-4.5); Potassium 3.6 mmol/L (3.4-5.0); Sodium 133 mmol/L (137-145)
[2023-07-03 06:41] LABS: Procalcitonin 0.2 ng/mL
[2023-07-03 06:49] LABS: Anisocytosis 1+; Hypochromasia 1+; Macrocytosis 1+ (NORMAL); Platelet Estimate Increased (Adequate); Schistocytes None Seen
[2023-07-03 07:04] LABS: Blood Urea Nitrogen < 2 mg/dL (7-17)
[2023-07-03 08:04] VITALS: PULSE 94
--- NOTE | 2023-07-03 08:35 | PM.IMPN ---
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-steroidal anti-inflammatories (NSAID) Status: Acute (3) Epigastric pain: Code(s): R10.13 - Epigastric pain Status: Acute (4) Perforated gastric ulcer: Code(s): K25.5 - Chronic or unspecified gastric ulcer with perforation Status: Acute (5) Diarrhea: Qualifiers: Diarrhea type: unspecified type Qualified Code(s): R19.7 - Diarrhea, unspecified Code(s): R19.7 - Diarrhea, unspecified Status: Acute (6) Macrocytic anemia: Code(s): D53.9 - Nutritional anemia, unspecified Status: Acute (7) Cardiac murmur: Code(s): R01.1 - Cardiac murmur, unspecified Status: Acute (8) Ascites: Code(s): R18.8 - Other ascites Status: Acute (9) Megaloblastic anemia: Code(s): D53.1 - Other megaloblastic anemias, not elsewhere classified Status: Acute (10) Obesity (BMI 30.0-34.9): Code(s): E66.9 - Obesity, unspecified Status: Acute (11) Chronic alcohol abuse: Code(s): F10.10 - Alcohol abuse, uncomplicated Status: Acute (12) Acute hyponatremia: Code(s): E87.1 - Hypo-osmolality and hyponatremia Status: Acute (13) Colitis: Code(s): K52.9 - Noninfective gastroenteritis and colitis, unspecified Status: Acute (14) Acute hypokalemia: Code(s): E87.6 - Hypokalemia Status: Acute Plan 53-year-old female past medical history obesity, active and chronic heavy alcohol use, tobacco abuse, irritable bowel syndrome, hypertension presenting with shoulder pain which progressed to abdominal pain. She has had diarrhea for some time but had increasing profuse diarrhea which was green/dark. ED evaluation demonstrated gastric ulcer and colitis so this patient was admitted for further workup. On 06/24 the patient underwent EGD which demonstrated a single deep ulcer the gastric and antrum with perforation. Biopsies deferred. Colonoscopy canceled. On 06/25 the patient underwent exploratory laparotomy with repair perforated gastric antral ulcer with modified omentum Cheo patch. #Perforated gastric ulcer -status post exploratory laparotomy with gastric ulcer of the antrum repair with a Cheo patch on 06/25 -patient doing relatively well after surgery. She is currently on Dilaudid q.4 hours p.r.n. -IV fluids have been discontinued. Continue Protonix b.i.d.. She should be discharged on this. -small-bowel follow-through negative for extravasation on 06/26. NG tube removed. patient tolerated diet well OSCAR drain was removed. #leukocytosis -multifactorial due to large bowel surgery gastric ulcer and colitis. Also resulting from multifocal pneumonia This is persistent procalcitonin is 0.5. Procalcitonin can be elevated and large bowel surgeries. received Zosyn. f/u c. diff negative changed Augmentin p.o. Multifocal pneumonia CT suggests bilateral multifocal pneumonia Patient is on Zosyn Aspiration precaution changed to Augmentin p.o. 07/01 #Colitis -infectious versus inflammatory. Patient has a longstanding history of diarrhea and irritable bowel syndrome. No biopsies taken from GI due to gastric ulcer. Follow-up with GI as outpatient, she may need colonoscopy and repeat EGD as well. #Acute hypokalemia replete with potassium chloride follow-up BMP corrected #Acute hyponatremia -118 on admission. Has improved appropriately status post volume resuscitation supporting the hypovolemic hypotonic hyponatremia. Yessica
--- NOTE | 2023-07-03 08:36 | PM.DS ---
DS: Admitting Diagnosis Discharge Date 07/02 Admitting Diagnosis 53-year-old female past medical history obesity, active and chronic heavy alcohol use, tobacco abuse, irritable bowel syndrome, hypertension presenting with shoulder pain which progressed to abdominal pain.? She has had diarrhea for some time but had increasing profuse diarrhea which was green/dark.? ED evaluation demonstrated gastric ulcer and colitis so this patient was admitted for further workup.? On 06/24 the patient underwent EGD which demonstrated a single deep ulcer the gastric and antrum with perforation.? Biopsies deferred.? Colonoscopy canceled.? On 06/25 the patient underwent exploratory laparotomy with repair perforated gastric antral ulcer with modified omentum Cheo patch. (1) Gastric ulcer: ?Qualifiers: ?Gastric ulcer chronicity:?acute??Gastric ulcer complication status:?without hemorrhage or perforation? 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 Qualified Code(s):?R19.7 - Diarrhea, unspecified ?Code(s): R19.7 - Diarrhea, unspecified ?Status:?Acute (6) Macrocytic anemia: ?Code(s): D53.9 - Nutritional anemia, unspecified ?Status:?Acute (7) Cardiac murmur: ?Code(s): R01.1 - Cardiac murmur, unspecified ?Status:?Acute (8) Ascites: ?Code(s): R18.8 - Other ascites ?Status:?Acute (9) Megaloblastic anemia: ?Code(s): D53.1 - Other megaloblastic anemias, not elsewhere classified ?Status:?Acute (10) Obesity (BMI 30.0-34.9): ?Code(s): E66.9 - Obesity, unspecified ?Status:?Acute (11) Chronic alcohol abuse: ?Code(s): F10.10 - Alcohol abuse, uncomplicated ?Status:?Acute (12) Acute hyponatremia: ?Code(s): E87.1 - Hypo-osmolality and hyponatremia ?Status:?Acute (13) Colitis: ?Code(s): K52.9 - Noninfective gastroenteritis and colitis, unspecified ?Status:?Acute (14) Acute hypokalemia: ?Code(s): E87.6 - Hypokalemia ?Status:?Acute DS: Discharge Diagnosis Discharge Diagnosis (1) Gastric ulcer: Qualifiers: Gastric ulcer chronicity: acute Gastric ulcer complication status: without hemorrhage or perforation Qualified Code(s): K25.3 - Acute gastric ulcer without hemorrhage or perforation Code(s): K25.9 - Gastric ulcer, unspecified as acute or chronic, without hemorrhage or perforation Status: Acute (2) NSAID long-term use: Code(s): 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-steroidal anti-inflammatories (NSAID) Status: Acute (3) Epigastric pain: Code(s): R10.13 - Epigastric pain Status: Acute (4) Perforated gastric ulcer: Code(s): K25.5 - Chronic or unspecified gastric ulcer with perforation Status: Acute (5) Diarrhea: Qualifiers: Diarrhea type: unspecified type Qualified Code(s): R19.7 - Diarrhea, unspecified Code(s): R19.7 - Diarrhea, unspecified Status: Acute (6) Macrocytic anemia: Code(s): D53.9 - Nutritional anemia, unspecified Status: Acute (7) Cardiac murmur: Code(s): R01.1 - Cardiac murmur, unspecified Status: Acute (8) Ascites: Code(s): R18.8 - Other ascites Status: Acute (9) Megaloblastic anemia: Code(s): D53.1 - Other megaloblastic anemias, not elsewhere classified Status: Acute (10) Obesity (BMI 30.0-34.9): C
[2023-07-03] MEDS: THIAMINE HCL 100 MG TABLET PO (09:14)
[2023-07-03] MEDS: POTASSIUM/PHOSPHORUS/SODIUM 1.5 GM PACKET 1 PACKET PO (09:14)
[2023-07-03] MEDS: CHOLECALCIFEROL 1,000 UNITS TABLET 2000 UNITS PO (09:14)
[2023-07-03] MEDS: FLUCONAZOLE 100 MG TABLET PO (09:14)
[2023-07-03] MEDS: PANTOPRAZOLE 40 MG TABLET PO (09:14)
[2023-07-03] MEDS: FOLIC ACID 1 MG TABLET PO (09:14)
[2023-07-03] MEDS: AMOXICILLIN/CLAVULANATE K 875-125 MG TAB 1 TABLET PO (09:14)
[2023-07-03] MEDS: ENOXAPARIN 40 MG/0.4 ML SYRINGE SUB-Q (09:15)
--- NOTE | 2023-07-03 12:33 | PM.PNGS ---
Progress Note: A&P Assessment and Plan (1) Perforated gastric ulcer: Code(s): K25.5 - Chronic or unspecified gastric ulcer with perforation Status: Acute Assessment and Plan: Patient has been switched to oral medications and is tolerating a diet. She is tolerating activity. Okay to discharge from a surgical standpoint. Follow-up with Dr. Castro in 1 week for staple removal. Plan I have discussed the patient's case and plan of care with Dr. Castro. Subjective Subjective Date/Time Seen: 07/03/23 12:33 Patient reports: no new complaints, tolerating a regular diet, flatus, bowel movement and afebrile Interval history: Patient doing well. Tolerating activity. No new issues overnight. Exam Const: General: comfortable and no acute distress GI: Inspection: non-distended, incision (intact with car, no erythema or drainage) and other (gauze dressing in RUQ where OSCAR drain was located, dry and intact) GI Palp: Yes Soft to palpation, Yes Tenderness to palpation present (GI) (mild incisional tenderness as expected) and No Guarding due to palpation present (GI) Auscultation: normal bowel sounds Objective Data Vital Signs Vital Signs: Vital Signs - 24 hr 07/02/23 16:04 07/02/23 14:00 07/02/23 20:00 Temperature 98.6 F Pulse Rate 92 90 95 Respiratory Rate 16 Blood Pressure 114/55 L Pulse Oximetry 98 Oxygen Delivery 07/02/23 20:00 07/02/23 22:00 07/03/23 00:00 Temperature 97.9 F Pulse Rate 92 104 H 93 Respiratory Rate 16 14 Blood Pressure 117/68 Pulse Oximetry 98 98 Oxygen Delivery Room Air 07/03/23 04:00 07/03/23 05:22 07/03/23 09:21 Temperature 97.7 F Pulse Rate 82 102 H Respiratory Rate 16 Blood Pressure 139/67 Pulse Oximetry 92 Oxygen Delivery Room Air Intake/Output Intake/Output: Intake & Output 06/30/23 07/01/23 07/02/23 07/03/23 23:59 23:59 23:59 23:59 Intake Total 3680 2690 1273 240 Output Total 415 2250 515 Balance 3265 190 818 240 Meds/Results Medications: Active Medications Generic Name Dose Route Start Last Admin Trade Name Freq PRN Reason Stop Dose Admin Acetaminophen 650 mg 06/24/23 04:13 06/29/23 18:06 Acetaminophen 325 Mg Tablet PO 650 mg Q6H PRN Administration Pain 1-3 or fever Al Hydrox/Mg Hydrox/Simethicone 30 ml 06/25/23 23:35 07/03/23 05:24 Mag Hydrox/Al Hydrox/Simeth 30 Ml Udc PO 30 ml Q8HR CELI Administration Amoxicillin/Clavulanate Potassium 1 tablet 07/02/23 12:52 07/03/23 09:14 Amoxicillin/Clavulanate K 875-125 Mg Tab PO 1 tablet Q12HR CELI Administration Enoxaparin Sodium 40 mg 06/26/23 09:00 07/03/23 09:15 Enoxaparin 40 Mg/0.4 Ml Syringe SUB-Q 40 mg DAILY CELI Administration Fluconazole 100 mg 07/03/23 09:00 07/03/23 09:14 Fluconazole 100 Mg Tablet PO 100 mg QAM [facility] Administration Folic Acid 1 mg 06/24/23 09:00 07/03/23 09:14 Folic Acid 1 Mg Tablet PO 1 mg DAILY [facility] Administration Hydromorphone HCl 0.5 mg 06/26/23 13:36 06/27/23 15:32 Hydromorphone Hcl Inj (*Crx) 1 Mg/Ml Syr IV PUSH 0.5 mg Q4HR PRN Administration Pain Rated 4-6 Hydromorphone HCl 1 mg 06/26/23 13:39 06/30/23 10:12 Hydromorphone Hcl Inj (*Crx) 1 Mg/Ml Syr IV PUSH 1 mg Q4H PRN Administration Pain Rated 7-10 Losartan Potassium 100 mg 06/24/23 21:00 07/02/23 21:27 Losartan Potassium 100 Mg Tablet PO 100 mg HS [facility] Administration Oxycodone HCl 5 mg 06/28/23 12:38 07/03/23 05:25 Oxycodone Hcl (*Crx) 5 Mg Tab Ir PO 5 mg Q4H PRN Administration Pain Rated 4-6 Oxycodone HCl 10 mg 06/28/23 12:38 07/01/23 18:51 Oxycodone Hcl (*Crx) 5 Mg Tab Ir PO 10 mg Q4H PRN Administration Pain Rated 7-10 Pantoprazole Sodium 40 mg 07/02/23 21:00 07/03/23 09:14 Pantoprazole 40 Mg Tablet PO 40 mg Q12HR CELI Administration Sucralfate 1 gm 06/25/23 16:30 07/03/23 12:24 Sucralfate 1 Gm Tablet PO 1 gm HEIDI Sequeira
[2023-07-06 22:08] LABS: H pylori Ag Stool NOT DETECTED (NOT DETECTED)
[2023-07-06 22:44] LABS: Calprotectin, Stool 138 mcg/g
== END 2023-07-03 14:00 | disposition home or self-care (01) | DRG 326 ==
LOC: ANHED 19:11 → ANHIMU 19:25 → ANH3MED 06-29 21:51
PROVIDERS: Emergency Medicine; Internal Medicine; Internal Medicine Gastroenterology; Internal Medicine Nephrology; Nurse Practitioner Family; Student in an Organized Health Care Education/Training Program; Surgery; Admitting Provider General Practice; Emergency Provider Emergency Medicine; PCP Family Medicine; Visit Provider Hospitalist
PROC: 0DJ08ZZ Inspection of Upper Intestinal Tract, Via Natural or Artificial Opening Endoscopic (ICD-10-PCS; CPT 43235; principal; 2023-06-25 14:00)
PROC: 0DU607Z Supplement Stomach with Autologous Tissue Substitute, Open Approach (ICD-10-PCS; CPT 49000; principal; 2023-06-25 18:15)
DX: K25.1 Acute gastric ulcer with perforation (principal); J18.9 Pneumonia, unspecified organism; E87.1 Hypo-osmolality and hyponatremia; R18.8 Other ascites; K52.9 Noninfective gastroenteritis and colitis, unspecified; T50.2X5A Adverse effect of carbonic-anhydrase inhibitors, benzothiadiazides and other diuretics, initial encounter; Z20.822 Contact with and (suspected) exposure to COVID-19; E87.6 Hypokalemia; D53.1 Other megaloblastic anemias, not elsewhere classified; R01.1 Cardiac murmur, unspecified; E66.9 Obesity, unspecified; F17.210 Nicotine dependence, cigarettes, uncomplicated; I10 Essential (primary) hypertension; K21.9 Gastro-esophageal reflux disease without esophagitis; F10.20 Alcohol dependence, uncomplicated; K58.0 Irritable bowel syndrome with diarrhea; E86.0 Dehydration; D72.829 Elevated white blood cell count, unspecified; L30.9 Dermatitis, unspecified; E55.9 Vitamin D deficiency, unspecified; Z68.34 Body mass index [BMI] 34.0-34.9, adult; Z90.49 Acquired absence of other specified parts of digestive tract; Z79.1 Long term (current) use of non-steroidal anti-inflammatories (NSAID)
CPT/HCPCS: 36415; 71045; 71275; 74174; 74177; 74240; 80048; 80053; 80069; 80076; 81003; 81050; 82533; 82570; 82607; 82746; 82784; 83605; 83690; 83735; 83883; 83930; 83935; 83993; 84100; 84145; 84155; 84156; 84165; 84166; 84295; 84300; 84443; 84484; 84540; 85025; 85027; 85610; 85730; 86140; 86364; 87040; 87045; 87338; 87427; 87449; 87493; 87637; 87641; 93005; 94640; 96361; 96374; 96375; 96376; 99285; A9270; C9113; J0692; J0696; J1100; J1170; J1450; J1650; J1836; J2250; J2270; J2405; J2543; J2704; J3010; J3360; J3370; J3475; J3480; J7030; J7040; J7120; Q9967

== ENCOUNTER 2023-11-21 02:11 | Day surgery (SDC) | payer BC, SELFPAY ==
--- NOTE | 2023-11-04 09:39 | PC.NURSE ---
8 Attempts to call patient with messages left and no response, spouses # attempted goes to and mailbox is full, called contact listed as mother Erica with message left on . I called PCP's office and they will attempt to call pt and ask her to return our call.
[2023-11-04 11:20] VITALS: BMI 29.2
--- NOTE | 2023-11-04 14:25 | PC.NURSE ---
Pt. states during pre-op interview that she is not on Pantoprazole and has not been since prescription ran out from hospital admission. She had a 30 day supply that ended in mid-July. I spoke with Dr. Ortega regarding this and he wanted pt to continue on the Pantoprazole 40mg twice a day. Order placed and pt called.
[2023-11-21 08:17] VITALS: BP 166/82; PULSE 111; RESP 20; TEMP 35.9; O2SAT 100
[2023-11-21] MEDS: LACTATED RINGERS 1,000 ML 150 ML IV CONT (08:27)
[2023-11-21] MEDS: MIDAZOLAM HCL (*CRX) 2 MG/2 ML VIAL IV PUSH (08:52)
--- NOTE | 2023-11-21 09:04 | PM.HPGS ---
History of Present Illness History of Present Illness Consent: Risks, benefits, and alternatives have been discussed and questions answered. Patient agrees to proceed with procedure. Chief complaint: neoplasm screening, chronic or unspecified gastric Narrative: Acacia Sorto is a 53 year old female here for egd and first colonoscopy, had perforated ulcer that required surgery, recently protonix was resumed and is helping. Review of Systems Review of Systems: All systems reviewed & are unremarkable except as noted in HPI and below PMFSH Past Medical History Medical History Chronic alcohol abuse Colon cancer screening Eczema Epigastric pain Essential hypertension Gastric ulcer NSAID long-term use Obesity (BMI 30.0-34.9) Vitamin D deficiency Surgical History Surgical History History of exploratory laparotomy Exploratory laparotomy with repair of perforated gastric antral ulcer with modified omentum Cheo patch 06/25/23 History of laparoscopy Multiple laparoscopic procedures for her endometriosis and ovarian cysts History of tonsillectomy and adenoidectomy History of total abdominal hysterectomy and bilateral salpingo-oophorectomy (~2004) Endometriosis History of tubal ligation Hx of cholecystectomy (~1994) Family History Family History Sibling Hypertension Father Hypertension Meningitis Leukemia Social History Social History Social History: The patient reports he has been with her current for 17 years they got in 2008. 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 She drinks 3-4 vodka containing beverages a day for quite some time. She smokes about 6 cigarettes a day. She started smoking in her early 30s. She denies illicit substance use. She raised 3 children. Code status: Full code Surrogate decision maker: Smoking packs per day: 0.25 Smoking cigarettes per day: 5.0 Years smoked: 20 Smoking pack-years: 5.00 Smoking status: Current every day smoker Tobacco type: cigarettes Alcohol intake: current Drinks per week: 5 Alcohol use details: vodka drinks Substance use: never Substance use type: does not use Other substance usage details: drinks vodka and water, last drink last evening Do You Feel Safe in your Home?: Yes Lack of Transportation: No Lack of Food: Never True Current Housing: I Have Housing Concerned About Future Housing: No Difficulty Paying Gas/Electric Bills: No Difficulty Paying for Meds: No Currently Unemployed: No Education: Associate Degree Difficulty w/ Childcare or Family Care: No Living arrangements: with family Spiritual care concerns: No Meds Home Medications and Allergies Home Medications Medication Instructions Recorded Confirmed Type chlorpheniramine maleate 4 mg 4 mg PO Q4H PRN Allergy Symptoms 06/23/23 11/21/23 History tablet losartan 100 1 tablet PO HS 06/23/23 11/21/23 History mg-hydrochlorothiazide 25 mg tablet estradiol 2 mg tablet 2 mg PO DAILY 07/10/23 11/21/23 History Folate 800 mcg PO DAILY 11/04/23 11/21/23 History Pre/Pro-Biotic 1 gummy PO DAILY 11/04/23 11/21/23 History Skin,Hair And Nails 2 gummy PO DAILY 11/04/23 11/21/23 History Turmeric/Curcumen/Danielle 1 tab-cap PO DAILY 11/04/23 11/21/23 History ferrous [id number] conc 2 cap PO DAILY 11/04/23 11/21/23 History capsule magnesium 250 mg tablet 250 mg PO DAILY 11/04/23 11/21/23 History ocivodiwk-clx-fvzf fumarate 18 1 tab-cap PO DAILY 11/04/23 11/21/23 History mg-FA 600 mcg-vit K 40 mcg capsule (Multi For Her) potassium 99 mg tablet 99 mg PO DAILY 11/04/23 11/21/23 History vitamin B complex 2 tablet PO 3XW 11/04/23 11/21/23 History vitamin D3-vitamin K2 1 tab-cap P
--- NOTE | 2023-11-21 09:21 | SUR.OPER ---
EGD [id number]. Colon start time 923.
[2023-11-21 09:35] VITALS: BP 99/55; PULSE 92; RESP 18; O2SAT 99
[2023-11-21 09:45] VITALS: BP 105/47; PULSE 97; RESP 18; O2SAT 100
[2023-11-21 09:55] VITALS: BP 126/61; PULSE 86; RESP 16; O2SAT 100
--- NOTE | 2023-12-08 11:24 | WPDANESEPPF ---
Anes - Initial Pre Proc Eval Procedure: Operation Date: 11/21/23 09:30 Proposed Procedures p Esophagogastroduodenoscopy&Screen Colon - Prashanth Rivera MD Date/Time: 12/08/23 11:24 Surgeon: Prashanth Rivera MD Pre Op Diagnosis: neoplasm screening, chronic or unspecified gastric Patient Data Age: 53 Gender: F Height: 1.57 m Weight: 77.5 kg Last Vital Signs Temp 96.6 F L 11/21/23 08:17 Pulse 86 11/21/23 09:55 Resp 16 11/21/23 09:55 BP 126/61 11/21/23 09:55 Pulse Ox 100 11/21/23 09:55 O2 Del Method Room Air 11/21/23 09:55 Allergies Allergy/AdvReac Type Severity Reaction Status Date / Time No Known Allergies Allergy Mild Verified 11/21/23 08:12 Home Medications Medication Instructions Recorded Confirmed Type chlorpheniramine maleate 4 mg 4 mg PO Q4H PRN Allergy Symptoms 06/23/23 11/21/23 History tablet losartan 100 1 tablet PO HS 06/23/23 11/21/23 History mg-hydrochlorothiazide 25 mg tablet estradiol 2 mg tablet 2 mg PO DAILY 07/10/23 11/21/23 History Folate 800 mcg PO DAILY 11/04/23 11/21/23 History Pre/Pro-Biotic 1 gummy PO DAILY 11/04/23 11/21/23 History Skin,Hair And Nails 2 gummy PO DAILY 11/04/23 11/21/23 History Turmeric/Curcumen/Danielle 1 tab-cap PO DAILY 11/04/23 11/21/23 History ferrous [id number] conc 2 cap PO DAILY 11/04/23 11/21/23 History capsule magnesium 250 mg tablet 250 mg PO DAILY 11/04/23 11/21/23 History drgbbqgjz-loj-zyhh fumarate 18 1 tab-cap PO DAILY 11/04/23 11/21/23 History mg-FA 600 mcg-vit K 40 mcg capsule (Multi For Her) potassium 99 mg tablet 99 mg PO DAILY 11/04/23 11/21/23 History vitamin B complex 2 tablet PO 3XW 11/04/23 11/21/23 History vitamin D3-vitamin K2 1 tab-cap PO DAILY 11/04/23 11/21/23 History pantoprazole 40 mg tablet,delayed 40 mg PO BID #60 tabs 11/21/23 11/21/23 Rx release Patient hx anesthesia problems: none Family hx anesthesia problems: none Results Review: All pre-operative results and documents have been reviewed as part of the pre-operative evaluation. [facility] Past Medical History Medical History Chronic alcohol abuse Colon cancer screening Eczema Epigastric pain Essential hypertension Gastric ulcer NSAID long-term use Obesity (BMI 30.0-34.9) Vitamin D deficiency Surgical History Surgical History History of exploratory laparotomy Exploratory laparotomy with repair of perforated gastric antral ulcer with modified omentum Cheo patch 06/25/23 History of laparoscopy Multiple laparoscopic procedures for her endometriosis and ovarian cysts History of tonsillectomy and adenoidectomy History of total abdominal hysterectomy and bilateral salpingo-oophorectomy (~2004) Endometriosis History of tubal ligation Hx of cholecystectomy (~1994) Family History Family History Sibling Hypertension Father Hypertension Meningitis Leukemia Social History Social History Social History: The patient reports he has been with her current for 17 years they got in 2008. 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 She drinks 3-4 vodka containing beverages a day for quite some time. She smokes about 6 cigarettes a day. She started smoking in her early 30s. She denies illicit substance use. She raised 3 children. Code status: Full code Surrogate decision maker: Smoking packs per day: 0.25 Smoking cigarettes per day: 5.0 Years smoked: 20 Smoking pack-years: 5.00 Smoking status: Former smoker Tobacco type: cigarettes Alcohol intake: current Drinks per week: 5 Alcohol use details: vodka drinks Substance use: never Substance use type: does not use Other substance usage details: drinks vodka
== END 2023-11-21 10:10 | disposition home or self-care (01) ==
PROVIDERS: Visit Provider Internal Medicine Gastroenterology
PROC: 0DJ08ZZ Inspection of Upper Intestinal Tract, Via Natural or Artificial Opening Endoscopic (ICD-10-PCS; CPT 43235; principal; 2023-11-21 09:30)
DX: Z12.11 Encounter for screening for malignant neoplasm of colon (principal); K63.5 Polyp of colon; K30 Functional dyspepsia; Z87.11 Personal history of peptic ulcer disease; I10 Essential (primary) hypertension; E55.9 Vitamin D deficiency, unspecified; F10.10 Alcohol abuse, uncomplicated; F17.210 Nicotine dependence, cigarettes, uncomplicated
CPT/HCPCS: 45385; 43239; 88305; J2250; J2704; J7120

== ENCOUNTER 2024-09-11 15:22 | Observation (INO) | payer BC, SELFPAY ==
--- NOTE | ~2024-09-11 | CT_ITS ---
EXAMINATION: CTA chest PE abdomen pel DATE: 09/11/2024 17:40 INDICATION: syncope, eval for PE, vomiting elevated liver enzy TECHNIQUE: Computed tomography angiography (CTA) of the chest was performed with 100 mL Omnipaque-350 intravenous contrast timed to evaluate the pulmonary arteries, followed by portal venous phase imagi ng of the abdomen and pelvis. Coronal maximum intensity projection 3D-reconstructions were created by the technologist. The dose-length product (DLP) was 1040.34 mGy-cm. Automated exposure control and i terative reconstruction technique were employed. COMPARISON: X-ray chest, same date; CT abdomen pelvis 07/01/2023 20: CTA chest abdomen pelvis . FINDINGS: CHEST: Lung parenchyma and airways: Clear. Pleura: Unremarkable. Thoracic inlet, axillae and chest wall: No thyroid or soft tissue mass. Thoracic aorta: No significant dilation. No dissection. Mediastinum: Normal. Heart and pericardium: Normal. Coronary artery calcifications: Mild. Thoracic bones: No acute osseous finding. Pulmonary arteries: Study quality: . No pulmonary emboli detected. ABDOMEN/PELVIS: Liver: Enlarged. Diffusely low-density parenchyma. Biliary/Gallbladder: Gallbladder is absent. No bile duct dilation. Pancreas: No mass or duct dilation. Spleen: Normal. Adrenals:No mass. Kidneys: No suspicious mass, obstructing stone, or hydronephrosis. GI tract: Mild antral wall edema. Colonic submucosal fat as can be seen with chronic IBD, obesity, ch emotherapy treatment, and celiac disease. No small or large bowel dilation. Normal appendix. Mesentery/Peritoneum: No ascites, mass, or free air. Retroperitoneum: No mass. Pelvis: Mild urinary bladder wall thickening. Absent uterus. Bilateral ovaries not confidently identi fied.. Soft Tissues: Soft tissues and body wall unremarkable. Abdominopelvic bones: IMPRESSION: No CT evidence of acute pulmonary embolus. Hepatomegaly with steatosis. Mild antral gastritis. Bilateral thickening seen with cystitis. Correlate with urinalysis. Reviewed, dictated and finalized at location K.
--- NOTE | ~2024-09-11 | XR_ITS ---
EXAMINATION: XR chest 2V Exam Date/Time: 09/11/2024 15:55 CDT HISTORY: Syncope; WEAKNESS Comparison: 06/29/2023. RESULT: Lines, tubes, and devices: Cholecystectomy clips. Lungs and pleura: Clear. Cardiomediastinal silhouette: Stable. Other: No acute osseous or upper abdominal finding. IMPRESSION: No acute cardiopulmonary process. Reviewed, dictated and finalized at location K.
[2024-09-11 15:23] VITALS: BP 103/65; PULSE 105; RESP 17; TEMP 36.6; O2SAT 100
--- NOTE | 2024-09-11 15:32 | ECG_ITS ---
Test Date: 2024-09-11 15:38:04 Measurements Intervals [employer] Rate: 87 P: 58 UT: 158 QRS: 41 QRSD: 102 T: 39 QT: 383 QTc: 462 Interpretive Statements SINUS RHYTHM WITH SINUS ARRHYTHMIA POSSIBLE LEFT ATRIAL ENLARGEMENT [-0.1mV P-WAVE IN V1/V2] LOW QRS VOLTAGE IN PRECORDIAL LEADS [QRS DEFLECTION < 1.0 mV IN CHEST LEADS] No previous ECG available for comparison Electronically Signed On 09-12-2024 13:37:43 CDT by Mark Molina M.D.
[2024-09-11 15:52] LABS: Hematocrit 29.8 % (37.0-47.0); Hemoglobin 10.8 g/dL (12.0-15.0); Immature Granulocyte Percent A 0.5 % (0-0.5); Lymphocytes Absolute Auto 1.08 K/mm3 (0.9-3.2); Mean Corpuscular HGB Conc 36.2 g/dl (32-36); Mean Corpuscular Hemoglobin 36.4 pg (26-34); Mean Corpuscular Volume 100.3 fl (80-100); Nucleated Red Blood Cells Absolute Auto 0.000 K/mm3 (0.0-0.012); Nucleated Red Blood Cells Perc 0.0 % (0.0-0.2); Platelet Count Result 232 k/mm3 (150-375); Red Blood Count 2.97 M/mm3 (4.2-5.4); White Blood Count 6.2 K/mm3 (4.5-10.0)
[2024-09-11 16:04] LABS: Alanine Aminotransferase 104 U/L (6-35); Albumin Level 3.8 g/dL (3.5-5.1); Alkaline Phosphatase 88 U/L (38-126); Anion Gap 11 mmol/L (4-12); Aspartate Amino Transferase 106 U/L (14-36); Bilirubin,Total 0.8 mg/dL (0.2-1.3); Blood Urea Nitrogen 4 mg/dL (7-17); Calcium 9.3 mg/dL (8.4-10.2); Carbon Dioxide 21 mmol/L (22-30); Chloride 94 mmol/L (98-107); Estimated CRCL calculation 44 ml/min; Estimated Glomerular Filt Rate 42; Glucose 137 mg/dL (65-110); Potassium 2.3 mmol/L (3.4-5.0); Sodium 126 mmol/L (137-145); Total Protein 6.3 g/dL (6.3-8.2)
[2024-09-11 17:03] LABS: Magnesium 1.1 mg/dL (1.6-2.3)
[2024-09-11 17:16] LABS: Troponin I < 0.012 ng/mL (0.000-0.034)
--- NOTE | 2024-09-11 17:23 | ED_ITS ---
HPI - General Adult General Chief complaint: Syncope Stated complaint: syncope Time Seen by Provider: 09/11/24 16:22 History of Present Illness HPI narrative: Patient 54-year-old female who presents emergency department chief complaint of syncopal episode the patient states that she has had decreased p.o. intake over the last several days and reports that she has had generalized weakness and exhaustion the patient denies chest pain denies shortness of breath reports no cough does report that she had some emesis that was yellow bile material patient states that he she had an episode where she briefly passed out and just feels exhausted. Related Data Home Medications ?Medication ?Instructions ?Recorded ?Confirmed ?Last Taken ?Type chlorpheniramine maleate 4 mg 4 mg PO Q4H PRN Allergy Symptoms 06/23/23 11/21/23 11/20/23 History tablet losartan 100 1 tablet PO HS 06/23/23 11/21/23 11/20/23 History mg-hydrochlorothiazide 25 mg tablet estradiol 2 mg tablet 2 mg PO DAILY 07/10/23 11/21/23 11/20/23 History Folate 800 mcg PO DAILY 11/04/23 11/21/23 11/20/23 History Pre/Pro-Biotic 1 gummy PO DAILY 11/04/23 11/21/23 11/20/23 History Skin,Hair And Nails 2 gummy PO DAILY 11/04/23 11/21/23 11/20/23 History Turmeric/Curcumen/Danielle 1 tab-cap PO DAILY 11/04/23 11/21/23 11/20/23 History ferrous [id number] conc 2 cap PO DAILY 11/04/23 11/21/23 11/20/23 History capsule magnesium 250 mg tablet 250 mg PO DAILY 11/04/23 11/21/23 11/20/23 History jvbrfbayw-ryu-fmue fumarate 18 1 tab-cap PO DAILY 11/04/23 11/21/23 11/20/23 History mg-FA 600 mcg-vit K 40 mcg capsule (Multi For Her) potassium 99 mg tablet 99 mg PO DAILY 11/04/23 11/21/23 11/20/23 History vitamin B complex 2 tablet PO 3XW 11/04/23 11/21/23 11/20/23 History vitamin D3-vitamin K2 1 tab-cap PO DAILY 08/11/21/23 11/20/23 History Allergies Allergy/AdvReac Type Severity Reaction Status Date / Time No Known Allergies Allergy Mild Verified 09/11/24 15:34 Review of Systems 2 Review of Systems: A 10 system review of systems was completed on the patient and is negative except for what is stated in the HPI. Nursing and ancillary documentation was reviewed. [facility] Past Medical History Medical History Colon cancer screening NSAID long-term use Epigastric pain Eczema Vitamin D deficiency Essential hypertension Obesity (BMI 30.0-34.9) Chronic alcohol abuse Gastric ulcer Surgical History Surgical History History of exploratory laparotomy Exploratory laparotomy with repair of perforated gastric antral ulcer with modified omentum Cheo patch 06/25/23 History of laparoscopy Multiple laparoscopic procedures for her endometriosis and ovarian cysts Hx of cholecystectomy (~1994) History of tonsillectomy and adenoidectomy History of tubal ligation History of total abdominal hysterectomy and bilateral salpingo-oophorectomy (~2004) Endometriosis Family History Family History Sibling Hypertension Father Hypertension Meningitis Leukemia Social History Social History Social History: The patient reports he has been with her current for 17 years they got in 2008. 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 She drinks 3-4 vodka containing beverages a day for quite some time. She smokes about 6 cigarettes a day. She started smoking in her early 30s. She denies illicit substance use. She raised 3 children. Code status: Full code Surrogate decision maker: Smoking packs per day: 0.25 Smoking cigarettes per day: 5.0 Years smoked: 20 Smoking pack-years: 5.00 Smoking status: Former smoker Tobacco type: cigarettes Alcohol intake: current Drinks per week: 5 Alcohol use details: vodka drinks Substance use: never Substance use type: does not use Other substance usage details: drinks vodka and water, last drink last evening Do You Feel Safe in your Home?: Yes Lack of Transportation: No Lack of Food: Never True Current Housing: I Have Housing Concerned About Future Housing: No Difficulty Paying Gas/Electric Bills: No Difficulty Paying for Meds: No Currently Unemployed: No Education: Associate Degree Difficulty w/ Childcare or Family Care: No Living arrangements: with family Spiritual care concerns: No Exam 2 Narrative: GENERAL: Well-appearing, well-nourished, and in no acute distress. Appears very weak HEAD: Normocephalic, atraumatic. EYES: PERRLA and EOMI. ENT: Nares clear, no rhinorrhea or epistaxis. Mucous membranes moist. NECK: Supple. CHEST: Clear to auscultation. No respiratory distress. HEART: Regular rate and rhythm. No murmur heard. Normal peripheral pulses. ABDOMEN: Soft, nontender, nondistended, normal active bowel sounds. EXTREMITIES: Normal range of motion. No edema. SKIN: Warm, dry, no rash. NEURO: No focal deficits. Alert and oriented x3. PSYCH: Normal mood and affect. Course Vital Signs Vital signs: Vital Signs Temperature 36.6 C 09/11/24 15:23 Pulse Rate 105 H 09/11/24 15:23 Respiratory Rate 17 09/11/24 15:23 Blood Pressure 103/65 09/11/24 15:23 Pulse Oximetry 100 09/11/24 15:23 Oxygen Delivery Room Air 09/11/24 15:23 Temperature 36.6 C 09/11/24 15:23 Pulse Rate 103 H 09/11/24 17:47 Respiratory Rate 14 09/11/24 17:47 Blood Pressure 103/61 09/11/24 17:47 Pulse Oximetry 99 09/11/24 17:47 Oxygen Delivery Room Air 09/11/24 15:23 Medical Decision Making Vital Signs Vital Signs: Vital Signs Temperature 36.6 C 09/11/24 15:23 Pulse Rate 105 H 09/11/24 15:23 Respiratory Rate 17 09/11/24 15:23 Blood Pressure 103/65 09/11/24 15:23 Pulse Oximetry 100 09/11/24 15:23 Oxygen Delivery Room Air 09/11/24 15:23 Temperature 36.6 C 09/11/24 15:23 Pulse Rate 103 H 09/11/24 17:47 Respiratory Rate 14 09/11/24 17:47 Blood Pressure 103/61 09/11/24 17:47 Pulse Oximetry 99 09/11/24 17:47 Oxygen Delivery Room Air 09/11/24 15:23 Lab Data 09/11/24 15:45 09/11/24 15:45 Labs: Lab Results 09/11/24 09/11/24 09/11/24 Range/Units 15:45 16:44 18:02 WBC 6.2 (4.5-10.0) K/mm3 RBC 2.97 L (4.2-5.4) M/mm3 Hgb 10.8 L (12.0-15.0) g/dL Hct 29.8 L (37.0-47.0) % MCV 100.3 H (80-100) fl MCH 36.4 H (26-34) pg MCHC 36.2 H (32-36) g/dl RDW 11.9 (11.5-14.5) % Plt Count 232 D (150-375) k/mm3 MPV 9.2 (7.4-10.4) fl Immature Gran % (Auto) 0.5 (0-0.5) % Neut % (Auto) 70.6 (45.5-73.1) % Lymph % (Auto) 17.4 L (18.3-44.2) % [place] % (Auto) 9.7 H (2.6-8.5) % Eos % (Auto) 0.8 (0-4.4) % Baso % (Auto) 1.0 (0.2-1.2) % Lymph # (Auto) 1.08 (0.9-3.2) K/mm3 [place] # (Auto) 0.6 (0.1-0.6) K/mm3 Eos # (Auto) 0.1 (0-0.3) K/mm3 Baso # (Auto) 0.1 (0.0-0.1) K/mm3 Abs Immat Gran (auto) 0.03 (0.00-0.031) K/mm3 Absolute Neuts (auto) 4.4 (1.3-6.7) K/mm3 Absolute Nucleated RBC 0.000 (0.0-0.012) K/mm3 Nucleated RBC % 0.0 (0.0-0.2) % Sodium 126 L (137-145) mmol/L Potassium 2.3 L* (3.4-5.0) mmol/L Chloride 94 L (98-107) mmol/L Carbon Dioxide 21 L (22-30) mmol/L Anion Gap 11 (4-12) mmol/L BUN 4 L (7-17) mg/dL Creatinine 1.33 H (0.7-1.0) mg/dL Estim Creat Clear Calc 44 ml/min Estimated GFR 42 L (59 - ) Glucose 137 H (65-110) mg/dL Lactic Acid 4.2 H* (0.7-2.0) mmol/L Calcium 9.3 (8.4-10.2) mg/dL Magnesium 1.1 L (1.6-2.3) mg/dL Total Bilirubin 0.8 (0.2-1.3) mg/dL AST 106 H (14-36) U/L ALT 104 H (6-35) U/L Alkaline Phosphatase 88 (38-126) U/L Troponin I < 0.012 (0.000-0.034) ng/mL Total Protein 6.3 (6.3-8.2) g/dL Albumin 3.8 (3.5-5.1) g/dL Urine Color Yellow (Yellow) Urine Appearance Clear (Clear) Urine pH 7.5 (5.0-9.0) Ur Specific [place] 1.016 (1.001-1.035) Urine Protein Negative (Negative) mg/dL Urine Glucose (UA) Negative (Negative) mg/dL Urine Ketones Negative (Negative) mg/dL Ur Blood (Man) Negative (Negative) Urine Nitrate Negative (Negative) Urine Bilirubin Negative (Negative) Urine Urobilinogen 0.2 (<2.0) mg/dL Leukocyte Esterase Rfl Negative (Negative) HEIDI/UL Influenza A (RT-PCR) Negative (Negative) Influenza B (RT-PCR) Negative (Negative) RSV (RT-PCR) Negative (Negative) SARS-CoV-2 RNA (RT-PCR) Negative (Negative) Discharge Plan Discharge Clinical Impression: Syncope, Acute hypokalemia, Hypomagnesemia Patient Disposition: Still a Patient Condition: Stable Patient Language: Algerian Prescriptions: No Action estradiol 2 mg tablet 2 mg PO DAILY chlorpheniramine maleate 4 mg Tablet 4 mg PO Q4H PRN (Reason: Allergy Symptoms) losartan-hydrochlorothiazide 100-25 mg tablet 1 tablet PO HS potassium 99 mg Tablet 99 mg PO DAILY vitamin B complex Tablet 2 tablet PO 3XW magnesium 250 mg Tablet 250 mg PO DAILY Iron Complex/C/B12 Capsule 2 cap PO DAILY Multi For Her 18 mg iron-600 mcg-40 mcg Capsule 1 tab-cap PO DAILY Folate 800 mcg PO DAILY Pre/Pro-Biotic 1 gummy PO DAILY Skin,Hair And Nails 2 gummy PO DAILY Turmeric/Curcumen/Danielle 1 tab-cap PO DAILY vitamin D3-vitamin K2 1 tab-cap PO DAILY pantoprazole 40 mg tablet,delayed release (DR/EC) 40 mg PO BID Qty: 60 11RF Follow-up/Referrals: PHYSICIAN,SOIL TECHNOLOGIST [Non-Staff] - Time of Disposition: 18:12
[2024-09-11 17:31] LABS: Influenza A QL RT-PCR Negative (Negative); Influenza B QL RT-PCR Negative (Negative); RSV RNA, RT-PCR Negative (Negative); SARS-CoV-2 RNA PCR Negative (Negative)
[2024-09-11 17:47] VITALS: BP 103/61; PULSE 103; RESP 14; O2SAT 99
[2024-09-11] MEDS: SODIUM CHLORIDE 0.9% IV 1,000 ML 999 ML IV CONT ×3 (17:54→18:01)
[2024-09-11] MEDS: KCL 20 MEQ/SW 100 ML 100 ML 50 MEQ IVPB ×2 (17:56→19:51)
[2024-09-11] MEDS: MAGNESIUM SULFATE 3GM/D5W100ML 3 GM/100 ML BAG IVPB (17:57)
[2024-09-11 18:22] LABS: Add Urine Microscopic? NO; Appearance Urine Clear (Clear); Glucose Urine UA Negative (Negative); Leukocyte Esterase Ur Negative LEU/UL (Negative); Nitrate Urine Negative (Negative); Specific Grav Ur 1.016 (1.001-1.035)
--- OUTSIDE RECORDS SUMMARY | 2024-09-11 18:29 | XMS_ITS | Clinical Summary ---
Author Organization [facility] Address [address] [place] [address] Care Team Providers Care Iron Assorter Name Role Phone Unavailable Primary Care Provider Unavailabl e Source Comments [facility],non-owned Affiliates and Associated Physician Practices is amultiple site organization consisting of ambulatory clinics and hospital sitesin [place], [place], [place] and [place]. This disclosure is being madepursuant to the Care Everywhere program and may not contain all information available regarding this patient. Last updated 17.[facility] [email or web address] Social History Tobacco Use Types Packs/Day Years Used Date Smoking Tobacco: Never Assessed Comments Unknown Sex and Gender Information Value Date Recorded Sex Assigned at Not on file Legal Sex Female 12:10 PM CDT Gender Identity Not on file Sexual Orientation Not on file Plan of Treatment Health Maintenance Due Date Last Done Comments COLOGUARD (AGES 45-75) - COL ON CA SCREENING 1971 COLON MONITORING 1971 COLONOSCOPY - COLON CA SCREENING 1971 CT COLONOGRAPHY - COLON CA SCREENING 1971 Colorectal Cancer Screening 1971 FIT - COLON CA SCREENING 1971 FLEX SIG - COLON CA SCREENING 1971 LIPID TESTING 1971 MAMMOGRAM 1971 HIV SCREENING 06/11/1986 HEPATITIS C SCREENING 06/07/1989 DTAP/TDAP/TD VACCINES (1 - Tdap) 06/11/1990 HEPATITIS B VACCINE (1 of 3 - 19+ 3-dose series) 06/11/1990 PAP SMEAR 06/11/1992 PNEUMOCOCCAL VACCINE 50+ (1 of 1 - PCV) 06/11/2021 ZOSTER VACCINE (1 of 2) 06/11/2021 COVID-19 VACCINE (2 - 2023-2 5 season) 2023 06/13/2020 DEPRESSION SCREENING 03/10/2024 INFLUENZA VACCINE (#1) 2024 HIB VACCINE Aged Out No longer eligi ble based on patient's age to complete this topic HPV VACCINE Aged Out No longer eligi ble based on patient's age to complete this topic MENINGOCOCCAL (Group B) VACC INE SHARED DECISION-MAKING Aged Out No longer eligibl e based on patient's age to complete this topic MENINGOCOCCAL GROUPS A/C/Y/W VACCINE Aged Out No longer eligible b ased on patient's age to complete this topic Insurance [employer] [facility] SELF PAY NO INSURANCE Member Subscriber Plan / Payer (Ef fective for All Dates) Name:Day Sorto Member ID:Not on file Relation to Subscriber:Not on file Name:DAY SORTO Subscriber ID:Not on file (Home) Address: [place] [address] Payer ID:Not on file Group ID:Not on file Type:Self Pay Address: [facility]
--- OUTSIDE RECORDS SUMMARY | 2024-09-11 18:29 | XMS_ITS | Clinical Summary ---
Author Organization [facility] Address [address] [place] [id number] Care Team Providers Care Medical Office Specialist Name Role Phone Gus Hebert MD Primary Care Provider [phone] Social History Tobacco Use Types Packs/Day Years Used Date Smoking Tobacco: Never Assessed Comments Unknown Sex and Gender Information Value Date Recorded Sex Assigned at Not on file Legal Sex Female 2:39 PM CDT Gender Identity Not on file Sexual Orientation Not on file Plan of Treatment Health Maintenance Due Date Last Done Comments DTAP/TDAP/TD VACCINES (1 - Tdap) 06/11/1990 HEPATITIS B VACCINES (1 of 3 - 19+ 3-dose series) 06/1990 HPV/Cotest (21-29) 06/11/1992 CERVICAL CANCER SCREENING 06/11/2001 HPV/Cotest (30-65) 06/11/2001 PAP SMEAR 06/11/2001 BREAST CANCER SCREENING 11/30/2015 11/29/2014 COLORECTAL SCREENING 06/11/2016 Colorectal Cancer Screening 06/11/2016 FIT-DNA Q 3 years 06/11/2016 FIT/FOBT Q 1 year 06/11/2016 Flex Sig/CT Colonography Q 5 years 06/11/2016 ZOSTER VACCINE (1 of 2) 06/11/2021 INFLUENZA VACCINE (#1) 2024 Procedures Procedure Name Priority Date/Time Associated Diagnosis Comments MAMMO SCREEN BILAT W OR WO CAD Routine 11/29/2014 12:02 PM CDT Other screening mammogram from Last 3 Months or Most Recently Relevant to Health Maintenance Results * MAMMO DIGITAL SCREEN BILAT (11/29/2014 12:02 PM CDT) Anatomical Region Laterality Modality Breast Bilateral Mammography Narrative 11/30/2014 11:19 AM CDT Bilateral digital screening mammogram with computer assisted diagnosis History: Annual screening exam. Findings: A bilateral screening mammogram was performed. The breast parenchyma is almost completely fatty replaced. No new masses, suspicious calcifications, or areas of asymmetry or distortion are identified. CAD was utilized. Impression: Negative screening mammogram. Recommendation: Routine annual follow-up Overall Assessment: Birads Category 1: Negative Girish Stanley MD MAMMO ORDERABLES Charla l Result from Last 3 Months or Most Recently Relevant to Health Maintenance Insurance [employer] BLUE ACCESS/TRUE BLUE PPO Care Teams Medical Office Specialist Relationship Specialty Start Date End Date Gus Hebert MD [address] [place] [phone] PCP - General Family Practice 11/25/16
--- OUTSIDE RECORDS SUMMARY | 2024-09-11 18:30 | XMS_ITS | Data Portability ---
Author Organization [facility] [employer], Main Office Address [address] [place] [address] Assessment No assessment recorded. Plan of Treatment Reminders Order Date Submit Date Provider Last Modified By Organization Details Last Modified Time Details Appointments None recorded. Lab CMP, serum or plasma 2023 [employer] [facility], [address], [place], [address], 4 23:46:20 magnesium, serum or plasma 2023 024 [employer] [facility], [address], [place], [address], 4 23:46:18 Referral None recorded. Procedures holter monitor placement (PROC) - *Please call pt to schedule* 2023 [email or web address] [place] [address], [address], [place], [address], 4 09:09:09 Surgeries None recorded. Imaging None recorded. Medication Orders Solu-Medrol (PF) 125 mg/2 mL solution for injection 2024 025 [email or web address] Not available 16:43:40 doxycycline hyclate 100 mg capsule 2024 025 [facility] [address]25, [address], [place], [address], 5 16:13:07 Medrol (Chris) 4 mg tablets in a dose pack 2024 025 [facility] [address]25, [address] [facility], [place], [address], 5 16:13:06 losartan 100 mg-hydrochl orothiazide 25 mg tablet 2024 025 [facility] [address]25, [address] [facility], [place], [address], 5 14:23:12 doxycycline hyclate 100 mg tablet 2023 [email or web address] [place] [address] 2425, [address] [facility], [place], [address], 5 14:08:37 metoprolol tartrate 50 mg tablet 2023 [email or web address] [place] [address] 2425, [address] [facility], [place], [address], 5 14:09:00 prednisone 20 mg tablet 2023 [email or web address] [place] [address] 2425, [address] [facility], [place], [address], 5 14:09:06 valacyclovi r 1 gram tablet 2022 [email or web address] [facility] 2425, [address] [facility], [place], [address], 4 11:41:57 nystatin 100,000 unit/mL oral suspension 2022 [email or web address] [facility] 2425, [address] [facility], [place], [address], 3 17:12:41 Lidocaine Viscous 2 % mucosal solution 2022 [email or web address] [place] [address] 2425, [address] [facility], [place], [address], 5 14:09:15 valacyclovi r 1 gram tablet 2022 [email or web address] [facility] [address], [address], [place], [address], 4 11:41:57 Patient TargetsNo targets recorded. Patient InstructionsNo instructions recorded. Reason for Referral None Reported. Results Created Date Observation Date Name Description Value Unit Range Abnormal Flag Note LastModifiedBy Organization Detail LastModifiedTime 12/28/1912/28/2022 IRON, TIBC AND LALITHA TIN PANEL iron, total 111 mcg/d L 45-160 normal Not Available [employer] [address] [address] [place], [address], 12/28/2022 08:53:14 12/28/1912/28/2022 IRON, TIBC AND LALITHA TIN PANEL iron binding capacity 313 mcg/d L_(ca lc) 250-45 0 normal Not Available [address] [address] [place], [address], 12/28/2022 08:53:14 12/28/1912/28/2022 IRON, TIBC AND LALITHA TIN PANEL % saturation 35 %_(ca lc) 16-45 normal Not Available [address] [address] [place], [address], 12/28/2022 08:53:14 12/28/1912/28/2022 IRON, TIBC AND LALITHA TIN PANEL ferritin 262 NG/mL 16-232 high Not Available [employer] [address] [address] [place], [address], 12/28/2022 08:53:14 12/28/1912/28/2022 TSH+F REE T4 TSH 2.88 mIU/L normal Refer ence Range > or = 20 Years 0.40- 4.50 Pregn vinicius Range s First trime ster 0.26- 2.66 Secon d trime ster 0.55- 2.73 Third trime ster 0.43- 2.91 Not Available [address], [address], 12/28/2022 08:53:15 12/28/1912/28/2022 TSH+F REE T4 T4, free 1.1 NG/dL 0.8-1. 8 normal Not Available [address], [address], 12/28/2022 08:53:15 12/28/19 23 12/28/2022 CBC (INCL UDES DIFF/ PLT) white blood cell count 5.6 thous and/u L 3.8-10 .8 normal Not Available [address], [address], 12/28/2022 08:53:16 12/28/19 23 12/28/2022 CBC (INCL UDES DIFF/ PLT) red blood cell count 2.62 claritza on/uL 3.80-5 .10 low Not Available [employer] [address], [address], 12/28/2022 08:53:16 12/28/19 23 12/28/2022 CBC (INCL UDES DIFF/ PLT) hemoglobin 10.0 g/dL 11.7-1 5.5 low Not Available [employer] [address], [address], 12/28/2022 08:53:16 12/28/19 23 12/28/2022 CBC (INCL UDES DIFF/ PLT) hematocrit 28.3 % 35.0-4 5.0 low Not Available [employer] [address], [address], 12/28/2022 08:53:16 12/28/19 23 12/28/2022 CBC (INCL UDES DIFF/ PLT) MCV 108.0 fL 80.0-1 00.0 high Not Available [address], [address], 12/28/2022 08:53:16 12/28/1912/28/2022 CBC (INCL UDES DIFF/ PLT) MCH 38.2 pg 27.0-3 3.0 high Not Available [address], [address], 12/28/2022 08:53:16 12/28/1912/28/2022 CBC (INCL UDES DIFF/ PLT) MCHC 35.3 g/dL 32.0-3 6.0 normal Not Available [address], [address], 12/28/2022 08:53:16 12/28/1912/28/2022 CBC (INCL UDES DIFF/ PLT) RDW 12.2 % 11.0-1 5.0 normal Not Available [address], [address], 12/28/2022 08:53:16 12/28/1912/28/2022 CBC (INCL UDES DIFF/ PLT) platelet count 297 thous and/u L 140-40 0 normal Not Available [address], [address], 12/28/2022 08:53:16 12/28/1912/28/2022 CBC (INCL UDES DIFF/ PLT) MPV 9.9 fL 7.5-12 .5 normal Not Available [address], [address], 12/28/2022 08:53:16 12/28/1912/28/2022 CBC (INCL UDES DIFF/ PLT) absolute neutrophils 3629 cells /uL 1500-7 800 normal Not Available [address], [address], 12/28/2022 08:53:16 12/28/1912/28/2022 CBC (INCL UDES DIFF/ PLT) absolute lymphocytes 1249 cells /uL 850-39 00 normal Not Available [address], [address], 12/28/2022 08:53:16 12/28/1912/28/2022 CBC (INCL UDES DIFF/ PLT) absolute monocytes 571 cells /uL 200-95 0 normal Not Available [address] [address] [place], [address], 12/28/2022 08:53:16 12/28/1912/28/2022 CBC (INCL UDES DIFF/ PLT) absolute eosinophils 101 cells /uL 15-500 normal Not Available [address] [place], [address], 12/28/2022 08:53:16 12/28/1912/28/2022 CBC (INCL UDES DIFF/ PLT) absolute basophils 50 cells /uL 0-200 normal Not Available [address] [place], [address], 12/28/2022 08:53:16 12/28/1912/28/2022 CBC (INCL UDES DIFF/ PLT) neutrophils 64.8 % normal Not Available [address], [address], 12/28/2022 08:53:16 12/28/19 23 12/28/2022 CBC (INCL UDES DIFF/ PLT) lymphocytes 22.3 % normal Not Available [address], [address], 12/28/2022 08:53:16 12/28/19 23 12/28/2022 CBC (INCL UDES DIFF/ PLT) monocytes 10.2 % normal Not Available [address] [place], [address], 12/28/2022 08:53:16 12/28/19 23 12/28/2022 CBC (INCL UDES DIFF/ PLT) eosinophils 1.8 % normal Not Available [address], [address], 12/28/2022 08:53:16 12/28/19 23 12/28/2022 CBC (INCL UDES DIFF/ PLT) basophils 0.9 % normal Not Available [address], [address], 12/28/2022 08:53:16 12/28/19 23 12/28/2022 VITAM IN B12/F OLATE , SERUM PANEL vitamin B12 1015 pg/mL 200-11 00 normal Not Available [address], [address], 12/28/2022 08:53:16 12/28/1912/28/2022 VITAM IN B12/F OLATE , SERUM PANEL folate, serum 5.6 NG/mL normal Refer ence Range Low: <3.4 Borde rline : 3.4-5 .4 Saba l: >5.4 Not Available [address], [address], 12/28/2022 08:53:16 12/28/1912/28/2022 VITAM IN D,25- OH,TO KARUNA,I A vitamin D,25-oh,tota l,ia 7 NG/mL 30-100 low Vitam in D Statu s 25-OH Vitam in D: Defic iency : <20 ng/mL Insuf ficie ncy: 20 - 29 ng/mL Optim al: > or = 30 ng/mL For 25-OH Vitam in D testi ng on patie nts on D2-guzman pplem entat ion and patie nts for whom quant itati on of D2 and D3 fract ions is requi red, the [employer] Assur eD(TM ) 25-OH VIT D, (D2,D 3), LC/MS /MS is recom thomas d: order code 28459 (carlos ents >2yrs ). See Note 1 Note 1 For addit ional infor mey kelly e refer to http: //wellington Rasheed gnmatthew ics.c om/fa q/FAQ 199 (This link is being provi ded for infor alee harding/ isela thomas purpo ses only. ) Not Available [address], [address], 12/28/2022 08:53:17 07/19/19 24 07/19/2023 MAGNE SIUM magnesium 1.4 mg/dL 1.5-2. 5 low Not Available [address], [address], 07/19/2023 23:46:18 07/19/19 24 07/19/2023 COMPR EHENS SHARMIN METAB OLIC PANEL glucose 128 mg/dL 65-99 high Fasti ng refer ence inter barbie For someo ne witho ut known diabe brian, a gluco se value >125 mg/dL indic ates that they may have diabe brian and this shoul d be confi rmed with a follo w-up test. Not Available [address], [address], 07/19/2023 23:46:20 07/19/19 24 07/19/2023 COMPR EHENS SHARMIN METAB OLIC PANEL urea nitrogen (BUN) 15 mg/dL 7-25 normal Not Available [employer] [address], [address], 07/19/2023 23:46:20 07/19/19 24 07/19/2023 COMPR EHENS SHARMIN METAB OLIC PANEL creatinine 0.84 mg/dL 0.50-1 .03 normal Not Available [address], [address], 07/19/2023 23:46:20 07/19/19 24 07/19/2023 COMPR EHENS SHARMIN METAB OLIC PANEL eGFR 84 mL/mi n/1.7 3m2 > or = 60 normal Not Available [address], [address], 07/19/2023 23:46:20 07/19/19 24 07/19/2023 COMPR EHENS SHARMIN METAB OLIC PANEL BUN/creatini ne ratio SEE NOTE: (calc ) 6-22 Not Repor sonya: BUN and Creat inine are withi n refer ence range . Not Available [address], [address], 07/19/2023 23:46:20 07/19/19 24 07/19/2023 COMPR EHENS SHARMIN METAB OLIC PANEL sodium 133 mmol/ L 135-14 6 low Not Available [address], [address], 07/19/2023 23:46:20 07/19/19 24 07/19/2023 COMPR EHENS SHARMIN METAB OLIC PANEL potassium 3.9 mmol/ L 3.5-5. 3 normal Not Available [address], [address], 07/19/2023 23:46:20 07/19/19 24 07/19/2023 COMPR EHENS SHARMIN METAB OLIC PANEL chloride 97 mmol/ L 98-110 low Not Available [address], [address], 07/19/2023 23:46:20 07/19/19 24 07/19/2023 COMPR EHENS SHARMIN METAB OLIC PANEL carbon dioxide 25 mmol/ L 20-32 normal Not Available [address], [address], 07/19/2023 23:46:20 07/19/19 24 07/19/2023 COMPR EHENS SHARMIN METAB OLIC PANEL calcium 10.3 mg/dL 8.6-10 .4 normal Not Available [employer] [address] [place], [address], 07/19/2023 23:46:20 07/19/19 24 07/19/2023 COMPR EHENS SHARMIN METAB OLIC PANEL protein, total 7.4 g/dL 6.1-8. 1 normal Not Available [address], [address], 07/19/2023 23:46:20 07/19/19 24 07/19/2023 COMPR EHENS SHARMIN METAB OLIC PANEL albumin 4.2 g/dL 3.6-5. 1 normal Not Available [address], [address], 07/19/2023 23:46:20 07/19/19 24 07/19/2023 COMPR EHENS SHARMIN METAB OLIC PANEL globulin 3.2 g/dL_ (calc ) 1.9-3. 7 normal Not Available [address], [address], 07/19/2023 23:46:20 07/19/19 24 07/19/2023 COMPR EHENS SHARMIN METAB OLIC PANEL albumin/glob ulin ratio 1.3 (calc ) 1.0-2. 5 normal Not Available [address], [address], 07/19/2023 23:46:20 07/19/19 24 07/19/2023 COMPR EHENS SHARMIN METAB OLIC PANEL bilirubin, total 0.3 mg/dL 0.2-1. 2 normal Not Available [address], [address], 07/19/2023 23:46:20 07/19/19 24 07/19/2023 COMPR EHENS SHARMIN METAB OLIC PANEL alkaline phosphatase 98 U/L 37-153 normal Not Available [address], [address], 07/19/2023 23:46:20 07/19/19 24 07/19/2023 COMPR EHENS SHARMIN METAB OLIC PANEL AST 21 U/L 10-35 normal Not Available [address] [address] [place], [address], 07/19/2023 23:46:20 07/19/19 24 07/19/2023 COMPR EHENS SHARMIN METAB OLIC PANEL ALT 15 U/L 6-29 normal Not Available [facility] [address] [place], [address], 07/19/2023 23:46:20 06/23/19 24 06/23/2023 CT, angio gram, chest + abdom en + pelvi s, w/ contr ast No observ ation record ed. [address] [address], [place], [address], 07/26/2023 08:46:47 06/23/19 24 06/23/2023 XR, chest No observ ation record ed. [address] [address], [place], [address], 07/26/2023 08:47:01 06/27/19 24 06/27/2023 XR, abdom en + RF, upper gastr ointe sumi l tract , w/ air, w/ contr ast PO No observ ation record ed. [address] [address], [place], [address], 07/26/2023 08:47:29 06/29/19 24 06/29/2023 XR, chest No observ ation record ed. [address] [address], [place], [address], 07/26/2023 08:47:46 07/01/19 24 07/01/2023 CT, chest , w/o contr ast No observ ation record ed. [address] [address], [place], [address], 07/26/2023 08:48:14 Result Notes None recorded. Problems Name Problem SNOMED Code Status Onset Date Resolution Date Notes Provider Name and Address Organization Details Recorded Time Hypertens sharmin disorder 74324057 Completed 202004/17/2020 Not Available [facility] 3 00:43:40 Essential hypertens ion 11891230 Active 2020 Not Available [facility] 3 00:43:41 Allergic rhinitis 54987409 Active 2020 Not Available [facility] 3 00:43:41 Endometri osis of uterus 05816831 Active 2020 Not Available [facility] 3 00:43:41 Lesion of oral mucosa 14097967692 [address] Active 2022 JAQUELIN Muhammad-C [address], [place], [address] , [employer] 3 10:34:41 Lighthead edness 308082049 Active 2022 JAQUELIN Muhammad-C [address], [address], [place], [address] , [employer] 3 10:35:04 Fatigue 73047496 Active 2022 JAQUELIN Muhammad-C [address], [address], [place], [address] , [employer] 3 10:37:30 Malaise and fatigue 327810447 Active 2022 JAQUELIN Muhammad-C [address], [address], [place], [address] , [employer] 3 14:08:26 Finding of vitamin B12 level 829096959 Active 2022 DARRION MuhammadP-C [address], [place], [address] , [employer] 3 14:10:50 Inadequat e intake of vitamin D and/or vitamin D derivativ e 285154117 Active 2022 Carlos Powell, DEPARTMENT CLINICIAN-C [address], [place], [address] , [employer] [facility] [employer] [facility] 3 14:12:22 Vitamin D deficienc y 66703717 Active 2022 Carlos Powell, DEPARTMENT CLINICIAN-C [address], [place], [address] , [employer] [facility] [employer] [facility] 3 17:10:32 Anemia 856137919 Active 2022 Carlos Powell, DEPARTMENT CLINICIAN-C [address], [place], [address] , [employer] [facility] [employer] [facility] 3 17:07:57 Tachycard ia 6726382 Active 2023 Carlos Powell DEPARTMENT CLINICIAN-C [address], [place], [address] , [employer] [facility] [employer] [facility] 4 11:52:42 Abdominal pain 61857078 Active 2023 Carlos Powell DEPARTMENT CLINICIAN-C [address], [place], [address] , [employer] [facility] [employer] [facility] 4 11:52:52 Abscess 528562518 Active 2023 Carlos Powell DEPARTMENT CLINICIAN-C [address], [place], [address] , [employer] [facility] [employer] [facility] 4 12:02:58 Dyspnea on exertion 49940043 Active 2023 Carlos Powell DEPARTMENT CLINICIAN-C [address], [place], [address] , [employer] [facility] [employer] [facility] 4 12:16:43 Acute contact dermatiti s 786565105 Active 2024 DARRION MoffettP-C [address], [place], [address] , [employer] [facility] [place] [email or web address] 5 16:09:09 Upper respirato ry infection 74589409 Active 2024 JOSEP Moffett [address] [facility] [facility] [address], [place], [address] , [facility] [email or web address] 5 16:11:47 Problem Notes None recorded. Procedures Surgical History Date Name Laterality Status Provider Name and Address Organization Details Recorded Time 06/25/2023 EGD completed Faby Woods RN [facility] [email or web address] 06/25/2023 15:17:59 Imaging Results None recorded. Procedure Notes None recorded. Medical Equipment None Reported. Allergies No known drug allergies Medications Name Sig Start Date Stop Date Status Note LastModified by Organization Details LastModified Time fluconazole 100 mg tablet TAKE 1 TABLET BY MOUTH ONCE DAILY 04/06 completed Not Available Not Available Not Available nystatin 100,000 unit/mL oral suspension TAKE 5 ML BY MOUTH 4 TIMES DAILY 01/09 completed Not Available Not Available Not Available doxycycline hyclate 100 mg capsule TAKE 1 CAPSULE BY MOUTH TWICE DAILY active Not Available Not Available No t Available valacyclovi r 1 gram tablet TAKE 1 TABLET BY MOUTH ONCE DAILY FOR 5 DAYS 07/16 completed Not Available Not Available Not Available hydrocodone 5 mg-acetamin ophen 325 mg tablet TAKE 1 TABLET BY MOUTH EVERY 8 HOURS NEEDED 04/06 completed Not Available Not Available Not Available prednisone 20 mg tablet Take 2 tablets every day by oral route for 5 days. 04/06 completed Not Available Not Available Not Available Zithromax Z-Chris 250 mg tablet TAKE 2 TABLETS (500 MG) BY ORAL ROUTE ONCE DAILY FOR 1 DAY THEN 1 TABLET (250 MG) BY ORAL ROUTE ONCE DAILY FOR 4 DAYS 07/16 completed Not Available Not Available Not Available losartan 100 mg-hydrochl orothiazide 25 mg tablet TAKE 1 TABLET BY MOUTH ONCE DAILY active Not Available Not Available No t Available amoxicillin 875 mg tablet Take 1 tablet every 12 hours by oral route for 7 days. 07/16 completed Not Available Not Available Not Available estradiol 1 mg tablet TAKE 1 TABLET BY MOUTH ONCE DAILY 07/16 completed Not Available Not Available Not Available pantoprazol e 40 mg tablet,bell yed release TAKE 1 TABLET BY MOUTH TWICE DAILY active Not Available Not Available No t Available lisinopril 10 mg tablet TAKE 1 TABLET BY MOUTH EVERY DAY active Not Available Not Available No t Available metoprolol tartrate 50 mg tablet Take 1 tablet twice a day by oral route for 90 days. 04/06 completed Not Available Not Available Not Available lidocaine HCl 2 % mucosal solution APPLY 15 ML EVERY 3 HOURS 04/06 completed Not Available Not Available Not Available estradiol 2 mg tablet TAKE 1 TABLET BY MOUTH ONCE DAILY active Not Available Not Available No t Available methylpredn isolone 4 mg tablets in a dose pack TAKE BY MOUTH DIRECTED ON INSIDE OF PACKAGE active Not Available Not Available No t Available labetalol 100 mg tablet TAKE 1 TABLET BY MOUTH TWICE A DAY active Not Available Not Available No t Available doxycycline hyclate 100 mg tablet Take 1 tablet twice a day by oral route for 10 days. 04/06 completed Not Available Not Available Not Available loratadine 10 mg tablet Take 1 tablet every day by oral route. 07/16 completed Not Available Not Available Not Available amoxicillin 875 mg-potassiu m clavulanate 125 mg tablet TAKE 1 TABLET BY MOUTH EVERY 12 HOURS 04/06 completed Not Available Not Available Not Available escitalopra m 10 mg tablet TAKE 1 TABLET BY MOUTH EVERY DAY 05/15 completed Not Available Not Available Not Available iron active Not Available Not Availa ble Not Available cholecalcif matthias (vitamin D3) 50 mcg (2,000 unit) capsule Take 1 capsule by mouth once daily 2023 active Not Available Not Available Not Avai lable Solu-Medrol (PF) 125 mg/2 mL solution for injection Inject 125mg intramusc ularly once 2024 active Not Available Not Available Not Avai lable Flonase Allergy Relief 50 mcg/actuati on nasal spray,suspe nsion [place] 1 spray every day by intranasa l route. 04/06 completed Not Available Not Available Not Available Vitals Date Recorded Body height Body mass index (BMI) Body weight Body temperature Heart rate Oxygen saturation Oxygen saturation in Arterial blood by Pulse oximetry Systolic And Diastolic Provider Name and Address Organization Details Last Updated DateTime 157.48 cm 33.3 kg/m2 45467.8 1 g 97.3 [degF] 104 /min 98 % 98 % 158/80 mm[Hg] Faby Woods RN [facility] [employer] [facility] 5 14:08:11 Date Recorded Body height Body mass index (BMI) Body weight Body temperature Heart rate Oxygen saturation Oxygen saturation in Arterial blood by Pulse oximetry Systolic And Diastolic Provider Name and Address Organization Details Last Updated DateTime 4 157.48 cm 27.8 kg/m2 83439.0 4 g 97.2 [degF] 138 /min 99 % 99 % 124/86 mm[Hg] Belem Talley RN [facility] [employer] [facility] 4 11:45:57 Date Recorded Body height Body mass index (BMI) Body weight Body temperature Heart rate Oxygen saturation Oxygen saturation in Arterial blood by Pulse oximetry Systolic And Diastolic Provider Name and Address Organization Details Last Updated DateTime 5 157.48 cm 32.9 kg/m2 06031.6 3 g 97.4 [degF] 113 /min 97 % 97 % 140/84 mm[Hg] ORIANA Alvarez [facility] [employer] [facility] 5 16:03:01 Date Recorded Body weight Body temperature Oxygen saturation Oxygen saturation in Arterial blood by Pulse oximetry Heart rate Systolic And Diastolic Provider Name and Address Organization Details Last Updated DateTime 3 08914.1 5 g 98 [degF] 99 % 99 % 104 /min 124/78 mm[Hg] Margarita Michaud CMA [facility] [employer] [facility] 3 10:29:59 Date Recorded Body height Body mass index (BMI) Body weight Body temperature Heart rate Oxygen saturation Oxygen saturation in Arterial blood by Pulse oximetry Systolic And Diastolic Provider Name and Address Organization Details Last Updated DateTime 3 157.48 cm 31.1 kg/m2 84887.7 g 97.7 [degF] 98 /min 99 % 99 % 168/76 mm[Hg] Anabella Porter RN [facility] [employer] [facility] 3 16:47:13 Social History Question Answer Notes LastModified by Organizat ion Details LastModified Time Tobacco Smoking Status Former Smoker Belem Talley RN [facility], [facility] [employer] [facility] 07/17/2023 11:42:30 Do You Wear A Helmet When Biking? Yes [id number] Information not available 05/08/2022 What Is Your Level Of Caffeine Consumption? Occasional [id number] Information not available 05/08/2022 What Type Of Diet Are You Following? REGULAR [id number] Information not available 05/08/2022 What Is The Highest Grade Or Level Of School You Have Completed Or The Highest Degree You Have Received? [id number] [id number] [id number] Information not available 05/08/2022 Have There Been Any Changes To Your Family Or Social Situation? No [id number] Information not available 05/08/2022 Are There Any Guns Present In Your Home? No [id number] Information not available 05/08/2022 Do You Use Insect Repellent Routinely? No [id number] 0441 Information not available 05/08/2022 Have You Ever Been Counseled For Unhealthy Alcohol Use? No [id number] Information not available 05/08/2022 Do You Have Any Pets? No [id number] Information not available 05/08/2022 What Is Your Relationship Status? [id number] Information not available 05/08/2022 Do You Use Your Seat Belt Or Car Seat Routinely? Yes [id number] Information not available 05/08/2022 Do You Have Smoke And Carbon Monoxide Detectors In Your Home? Yes [id number] 9089 Information not available 05/08/2022 Are You Passively Exposed To Smoke? No [id number].[id number] Information not available 05/08/2022 Are There Any Smokers In Your House? No [id number].[id number] 1171 Information not available 05/08/2022 How Much Tobacco Do You Smoke? 0.25 PPD [id number].[id number] 7924 Information not available 05/08/2022 Do You Use Sunscreen Routinely? Yes [id number] Information not available 05/08/2022 Are You Currently In School? No [id number].[id number] 7663 Information not available 05/08/2022 Do You Have Any Dietary Restrictions? No [id number].238484 0654 Information not available 05/08/2022 Sex: Unknown Functional Status Question Answer Note LastModified by Organizat ion Details LastModified Time Do you use any illicit or recreational drugs? No [id number].[id number] Information not available 05/08/2022 What is your level of alcohol consumption? 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 Occasional [id number].[id number] 8056 Information not available 05/08/2022 Mental Status Question Answer Note LastModified by Organizat ion Details LastModified Time Do you feel stressed (tense, restless, nervous, or anxious, or unable to sleep at night)? [id number] Information not available 05/08/2022 Family History Nothing Reported. Medical History No medical history recorded. Gynecological HistoryNo gynecological history recorded. Obstetrics History GPAL:G 0 P 0 0 0 0 Immunizations Vaccine Type Date Status Note Provider Nam e and Address Organization Details Recorded Time [facility] 11/15/2020 completed Not Available [facility] 05/08/2022 00:46:34 Influenza, split virus, quadrivalent, PF 11/15/2020 completed Not Available [facility] 00:46:34 Past Encounters Encounter ID Performer Location Encounter Start Date Encounter Closed Date Diagnosis/Indication Diagnosis SNOMED-CT Code Diagnosis ICD10 Code Diagnosis Note [id number] Arcelia Culp MD [facility] Primary [facility] [place] [address] [place] [address] 05/15/2020 00:00:00 05/28/2020 19:59:35 [id number] Arcelia Culp MD [facility] Primary [facility] [place] [address] [place] [address] 11/15/2020 00:00:00 11/15/2020 15:26:35 [id number] Arcelia Culp MD [facility] Primary [facility] [place] [address] [place] [address] 04/09/2022 00:00:00 04/09/2022 12:45:23 [id number] Arcelia Culp MD [facility] Primary [facility] [place] [address] [place] [address] 12/23/2022 10:23:43 12/23/2022 10:58:49 Lesion of oral mucosa [id number] K13.70 first popped up around 1 month agocausing decreasing appetiteha s tried used carmex, abreva and coconut oil with little reliefhx of fever blisterswi ll give nystatin, lidocaine, and valacyclov irf/u in 2 weeks [id number] Arcelia Culp MD [facility] Primary Care [address] [place] [address] 01/09/2023 16:35:28 01/09/2023 17:16:20 Lesion of oral mucosa [id number] 603314 K13.70 -notes improvemen t with use of valcyclovi r, nystatin and lidocaine, resolution of lesions-me ds have been completed- appetite has returned-s till noting some tenderness -will send 1 more round of valacyclov ir Anemia [id number] D64.9 -discussed recent anemia-she has researched for iron rich foods, she is not a big fan of red meat [id number] Acrelia Culp MD [facility] [address] [place] [address] 07/17/2023 11:34:23 07/17/2023 12:21:39 Tachycardia 2110161 R00.0 -irregular ity in HR found in -pulse 138/152 today, ALBERTO currently- will get holter monitor-tr ial metoprolol -labs obtained Abdominal pain [id number] R10.9 -pt recently went to the hospital for left shoulder pain/abdom inal pain-she f/u with ER and was admitted-p erforated ulcer found while in hospital, colonoscop y not completed- on abd exam, possible abscess noted to the top of her surgical incision-d oxycycline ordered-f/ u with surgeon on 08/06 Dyspnea on exertion 6084 5006 R06.09 [id number] JOSEP Moffett [facility] Primary Care [address] [place] [address] 04/06/2024 14:03:25 04/06/2024 14:23:07 Adult health examination [id number] Z00.00 Discussed medication compliance and routine follow up.Discuss ed healthy diet and routine exercise.Araceli rollewed vaccine records and made recommenda tions as needed.Enc ouraged annual eye and dental exams, as well as twice yearly dental cleanings. Will check screening labs as listed below. Anemia [id number] D64.9 Essential hypertension [id number] I10 Z13.1 Z00.00 Z13.220 Vitamin D deficiency 347 32251 E55.9 [id number] JOSEP Moffett [facility] Primary [place] [address] [place] [address] 08/16/2024 15:46:58 08/16/2024 16:23:54 Acute contact dermatitis [id number] L25.9 Will treat as listed below.Disc ussed avoidance of NSAIDs while taking steroids. Patient to follow up as needed. Health Concerns Section Related Observation LastModified by Organization Detai ls LastModified Time None Recorded Concern Status LastModified by Organization Details LastModified Time None Recorded Advance Directives Directive None Recorded Payers Insurance Date Sequence Insurance Name Policy Number Policy Reynoso Covered Member ID Reynoso Member ID Guarantor Name 12/23/2022 1 [employer] (PPO) [id number] 1 Jamarcus Sorto [id number] Acacia Sorto 08/16/2024 1 [employer] [id number] Jamarcus Sorto [id number] Acacia Sroto Notes Date Note Type Note Provider Name and Address Organization Details Recorded Time 12/23/2022 text/html Pt is here for c JOSEP Soto [address], [address], [employer] [facility] [employer] 12/23/2022 11:55:25 01/09/2023 text/html Pt is here for 2 wk f/u JOSEP Muhammad [address] [address], [place], [address], [employer] 01/09/2023 17:23:06 07/17/2023 text/html pt was recently in the hospital JOSEP Muhammad [address] [address], [place], [address], [employer] 07/17/2023 15:28:53 04/06/2024 text/html Patient is a 53 year old female that presents to the office for annual wellness. Patient reports she is doing well on current medications and has no concerns at this time. labs- labs drawn in September from GI (Dr. Ortega with [facility]- 2 weeks agoMammogram- orderedColonoscopy- (12/01), repeat in 10 yearsFlu-declinesCov id-2 dosesTdap- (2020)Shingles- aware JOSEP Moffett [address], [place], [address], [employer] 04/06/2024 14:45:03 08/16/2024 text/html Patient is a 54 year old female that presents to the office for rash. Patient reports rash started a few days ago on her face, thought it was a fever blister however it has spread to her chest and shoulders. Patient denies any new skin contacts that could have caused irritation. Patient has been taking Benadryl and apply Hydrocortisone cream without relief of symptoms. Patient denies chest pain, shortness of breath and difficulty swallowing. JOSEP Moffett [address], [place], [address], [employer] 08/19/2024 17:36:10 OBGyn Episode No OBEpisode recorded.
--- NOTE | 2024-09-11 18:45 | PC.NURSE ---
Per Dr. Gonzalez, do not start 2nd bag of potassium until 1st bag has finished.
[2024-09-11] MEDS: SODIUM CHLORIDE 0.9% IV 1,000 ML 125 ML IV CONT (19:51)
--- NOTE | 2024-09-11 20:06 | P.HP_ITS ---
H&P: HPI History of Present Illness Date/Time: 09/11/24 20:06 Chief Complaint: Syncope, N/V Narrative: 54 y/o F with PMH of hypertension, eczema, vitamin-D deficiency, and gastric ulcer presents here with syncope, nausea, and vomiting. The patient presents here with syncope, nausea, and vomiting on 09/11. The patient reports she was outside but in the shade for a couple hours. Patient asked her brother to help her back into the house. She started to stand up and felt too weak to stand. She sat back down and took a little more time to sit. then tried to help her up and into the house but she fell back into the chair. She lost consciousness briefly but more so described it as everything shutting down. Family then brought her some ice to lay on her and they wiped her down with a cold towel. Family called EMS. They requested the patient to stand but she required assistance from her family and the career services director to get to the stretcher. Near syncope was also precipitated by poor p.o. intake over the last week and a half as well as nausea, vomiting, extreme fatigue, diarrhea (intermittent chronically, worse in the last 3 days), and generalized weakness. She describes her emesis as yellow bile. Patient also had a shot of vodka in a 24 oz bottle of water/[place]. She believes she drank a third of it. She also reports a recent rash to her upper chest that developed 1 month ago. She was treated with a course of doxycycline and steroids which she completed at the beginning of August. Initial VS at presentation: 98? F, HR 105, R 17, 103/65, and 100% on RA. ED workup showed: No leukocytosis, hemoglobin 10.8 (11.6 on 09/26/2023), sodium 126, potassium 2.3, creatinine 1.33 and GFR 42 (0.93 and GFR 74 on 09/26/2023), glucose 137, magnesium 1.1, AST 106, ALT 104, initial troponin negative, and UA unremarkable. CXR showed no acute cardiopulmonary process. CTA of the chest/abdomen/pelvis showed no PE, hepatomegaly with steatosis, mild antral gastritis, bilateral thickening seen with cystitis correlate with UA. EKG showed sinus rhythm with sinus arrhythmia, possible left atrial enlargement, low QRS voltage in precordial leads, rate 87. Review of Systems Review of Systems: All systems reviewed & are unremarkable except as noted in HPI and below [facility] Past Medical History Medical History Colon cancer screening NSAID long-term use Epigastric pain Eczema Vitamin D deficiency Essential hypertension Obesity (BMI 30.0-34.9) Chronic alcohol abuse Gastric ulcer Surgical History Surgical History History of exploratory laparotomy Exploratory laparotomy with repair of perforated gastric antral ulcer with modified omentum Cheo patch 06/25/23 History of laparoscopy Multiple laparoscopic procedures for her endometriosis and ovarian cysts Hx of cholecystectomy (~1994) History of tonsillectomy and adenoidectomy History of tubal ligation History of total abdominal hysterectomy and bilateral salpingo-oophorectomy (~2004) Endometriosis Family History Family History Sibling Hypertension Father Hypertension Meningitis Leukemia Social History Social History Social History: The patient reports he has been with her current for 17 years they got in 2008. 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 She drinks 3-4 vodka containing beverages a day for quite some time. She smokes about 6 cigarettes a day. She started smoking in her early 30s. She denies illicit substance use. She raised 3 children. Code status: Full code Surrogate decision maker: Smoking packs per day: 0.25 Smoking cigarettes per day: 5.0 Years smoked: 20 Smoking pack-years: 5.00 Smoking status: Current some day smoker Tobacco type: cigarettes Second hand tobacco smoke exposure: No Alcohol intake: current Drinks per week: 7 Alcohol use details: vodka drinks Substance use: never Substance use type: does not use Other substance usage details: drinks vodka and water, last drink last evening Do You Feel Safe in your Home?: Yes Lack of Transportation: No Lack of Food: Never True Current Housing: I Have Housing Concerned About Future Housing: No Difficulty Paying Gas/Electric Bills: No Difficulty Paying for Meds: No Currently Unemployed: No Education: Associate Degree Difficulty w/ Childcare or Family Care: No Living arrangements: with family Spiritual care concerns: No Meds Home Medications and Allergies Home Medications ?Medication ?Instructions ?Recorded ?Confirmed ?Type chlorpheniramine maleate 4 mg 4 mg PO Q4H PRN Allergy Symptoms 06/23/23 09/11/24 History tablet losartan 100 1 tablet PO HS 06/23/23 09/11/24 History mg-hydrochlorothiazide 25 mg tablet estradiol 2 mg tablet 2 mg PO DAILY 07/10/23 09/11/24 History Folate 800 mcg PO DAILY 11/04/23 09/11/24 History Pre/Pro-Biotic 1 gummy PO DAILY 11/04/23 09/11/24 History Skin,Hair And Nails 2 gummy PO DAILY 11/04/23 09/11/24 History Turmeric/Curcumen/Danielle 1 tab-cap PO DAILY 11/04/23 09/11/24 History ferrous [id number] conc 2 cap PO DAILY 11/04/23 09/11/24 History capsule magnesium 250 mg tablet 250 mg PO DAILY 11/04/23 09/11/24 History adgzcqwhs-ujy-ivkr fumarate 18 1 tab-cap PO DAILY 11/04/23 09/11/24 History mg-FA 600 mcg-vit K 40 mcg capsule (Multi For Her) potassium 99 mg tablet 99 mg PO DAILY 11/04/23 09/11/24 History vitamin B complex 2 tablet PO 3XW 11/04/23 09/11/24 History vitamin D3-vitamin K2 1 tab-cap PO DAILY 11/04/23 09/11/24 History pantoprazole 40 mg tablet,delayed 40 mg PO BID #60 tabs 11/21/23 09/11/24 Rx release lysine 1,000 mg tablet 1,000 mg PO DAILY 09/11/24 09/11/24 History Allergies Allergy/AdvReac Type Severity Reaction Status Date / Time No Known Allergies Allergy Mild Verified 09/11/24 15:34 Vital Signs Vital Signs - 24 hr 09/11/24 15:23 09/11/24 17:47 Temperature 98 F Pulse Rate 105 H 103 H Respiratory Rate 17 14 Blood Pressure 103/65 103/61 Pulse Oximetry 100 99 Oxygen Delivery Room Air Exam Const: General: comfortable and no acute distress Other: , female, nontoxic appearance HENMT: Face/Nose/Sinus: Normal nares present Mouth: Yes moist mucous membranes Eyes: General: appearance normal, both eyes and all related structures Sclera: sclerae normal Pupils: Equal, round and reactive pupils present EOM: EOMs intact bilaterally Resp: Effort & Inspection: normal respiratory effort Auscultation: clear to auscultation bilaterally Cardio: Rate: regular rate Rhythm: regular rhythm Other: S1-S2 present without murmur, rub, ectopy GI: Other: Abdomen soft, nondistended, nontender. Normoactive bowel sounds in all quadrants. Skin: General skin exam: normal color and no rashes or lesions noted Wounds: no wounds Neuro: Speech: normal speech Sensory Exam: normal sensation Other: A&O x4 Extrem: General: normal to inspection Psych: Mental Status: mental status grossly normal Affect: normal affect Other: good insight and judgment, pleasant H&P: Results Labs Labs: Short CBC 09/11/24 Range/Units 15:45 WBC 6.2 (4.5-10.0) K/mm3 Hgb 10.8 L (12.0-15.0) g/dL Hct 29.8 L (37.0-47.0) % Plt Count 232 D (150-375) k/mm3 BMP 09/11/24 15:45 Sodium 126 L Potassium 2.3 L* Chloride 94 L Carbon Dioxide 21 L BUN 4 L Creatinine 1.33 H Glucose 137 H Calcium 9.3 Cardiac Enzymes 09/11/24 Range/Units 15:45 Troponin I < 0.012 (0.000-0.034) ng/mL Liver Function 09/11/24 Range/Units 15:45 Total Bilirubin 0.8 (0.2-1.3) mg/dL AST 106 H (14-36) U/L ALT 104 H (6-35) U/L Alkaline Phosphatase 88 (38-126) U/L Albumin 3.8 (3.5-5.1) g/dL Urine 09/11/24 Range/Units 18:02 Urine Color Yellow (Yellow) Urine Appearance Clear (Clear) Urine pH 7.5 (5.0-9.0) Ur Specific [place] 1.016 (1.001-1.035) Urine Protein Negative (Negative) mg/dL Urine Glucose (UA) Negative (Negative) mg/dL Assessment and Plan Assessment and plan (1) Syncope: Qualifiers: Syncope type: unspecified Qualified Code(s): R55 - Syncope and collapse Code(s): R55 - Syncope and collapse Status: Acute Assessment and Plan: - EKG showed sinus rhythm with sinus arrhythmia, rate 87, possible left atrial enlargement, low QRS voltage in precordial leads. - hyponatremia, hypokalemia, and hypomagnesium noted. Plan to correct. - UA, viral PCR, and CXR showed no indicators of infection - troponin negative, will continue to trend - check orthostatics - reviewed glucose 137 Suspect syncope secondary to heat and hypovolemia due to nausea, vomiting, poor p.o. intake over the last few days. Will rehydrate, check orthostatics, correct electrolytes. (2) Acute hyponatremia: Code(s): E87.1 - Hypo-osmolality and hyponatremia Status: Acute Assessment and Plan: - Na 126 - NS 3L bolus -> NS 125 mL/hr - monitor Suspect hyponatremia secondary to poor dietary intake over the last few days. (3) Acute hypokalemia: Code(s): E87.6 - Hypokalemia Status: Acute Assessment and Plan: - K 2.3 - initial repletion with 20 KCL IVPB x2, recheck this evening - monitor (4) VINI (acute kidney injury): Code(s): N17.9 - Acute kidney failure, unspecified Status: Acute Assessment and Plan: - creatinine 1.33 and GFR 42, previously 0.93 and GFR 74 on 09/26/2023. - trend renal function - trend electrolytes, correct as needed Suspect VINI secondary to hypovolemia/poor p.o. intake, nausea and vomiting. Plan to rehydrate, if no improvement in renal function with 24 hours of fluids, consider Nephrology consultation and further workup. Plan Diet: Regular GI Prophylaxis: Not currently indicated DVT Prophylaxis: SCDs IV fluids: 3L bolus -> NS 125 mL/hr Lines/Tubes: Peripheral IV Code Status: Full code Quality VTE Prophylaxis VTE prophylaxis: mechanical ordered Hospitalist MIPS Advance Care Plan I have confirmed that the patient's Advanced Care Plan is present, code status is documented, or surrogate decision maker is listed in patient medical record.: Yes Medication Reconciliation I have utilized all available resources to obtain, update and review the patients current medications (includes all prescriptions, OTC, herbals, cannabis, and nutritional supplements).: Yes
--- NOTE | 2024-09-11 20:51 | ADMGEN ---
This patient, Acacia Sorto, was admitted to Medical Room 246-01. Patient/family oriented to hospital policies and general routines including ID bracelet, bed and alarms, visiting hours, pain management, procedures, bathroom and other care routines, personal items, smoking policy, room service/diet, and visiting hours. Information on how to activate the Rapid Response Team has been discussed. Patient/Family are encouraged to report perceived risks to care and to ask questions if they do not understand what they are told or what they should do.
[2024-09-11 20:58] VITALS: BMI 33.9
[2024-09-11 22:00] VITALS: BP 109/83; PULSE 109; RESP 18; TEMP 36.8; O2SAT 100
[2024-09-11 22:22] LABS: Anion Gap 10 mmol/L (4-12); Blood Urea Nitrogen 3 mg/dL (7-17); Calcium 8.5 mg/dL (8.4-10.2); Carbon Dioxide 19 mmol/L (22-30); Chloride 101 mmol/L (98-107); Estimated CRCL calculation 52 ml/min; Estimated Glomerular Filt Rate 51; Glucose 114 mg/dL (65-110); Magnesium 2.3 mg/dL (1.6-2.3); Potassium 3.0 mmol/L (3.4-5.0); Sodium 130 mmol/L (137-145); Troponin I < 0.012 ng/mL (0.000-0.034)
[2024-09-11] MEDS: MELATONIN 5 MG TABLET PO (22:56)
[2024-09-11] MEDS: POTASSIUM CHLORIDE 20 MEQ ER TABLET 40 MEQ PO (22:57)
[2024-09-12] VITALS: PULSE 93
[2024-09-12 00:53] LABS: Troponin I < 0.012 ng/mL (0.000-0.034)
[2024-09-12 04:00] VITALS: PULSE 93
[2024-09-12] MEDS: SODIUM CHLORIDE 0.9% IV 1,000 ML 125 ML IV CONT ×2 (04:19→12:24)
[2024-09-12 05:21] LABS: Hematocrit 27.7 % (37.0-47.0); Hemoglobin 9.4 g/dL (12.0-15.0); Immature Granulocyte Percent A 0.2 % (0-0.5); Lymphocytes Absolute Auto 1.23 K/mm3 (0.9-3.2); Mean Corpuscular HGB Conc 33.9 g/dl (32-36); Mean Corpuscular Hemoglobin 36.3 pg (26-34); Mean Corpuscular Volume 106.9 fl (80-100); Nucleated Red Blood Cells Absolute Auto 0.000 K/mm3 (0.0-0.012); Nucleated Red Blood Cells Perc 0.0 % (0.0-0.2); Platelet Count Result 201 k/mm3 (150-375); Red Blood Count 2.59 M/mm3 (4.2-5.4); White Blood Count 4.5 K/mm3 (4.5-10.0)
[2024-09-12 05:36] LABS: Anion Gap 6 mmol/L (4-12); Bilirubin,Total 0.5 mg/dL (0.2-1.3); Blood Urea Nitrogen 3 mg/dL (7-17); Calcium 8.6 mg/dL (8.4-10.2); Carbon Dioxide 21 mmol/L (22-30); Chloride 104 mmol/L (98-107); Estimated CRCL calculation 58 ml/min; Estimated Glomerular Filt Rate 58; Glucose 97 mg/dL (65-110); Potassium 3.9 mmol/L (3.4-5.0); Sodium 131 mmol/L (137-145)
[2024-09-12 05:37] LABS: Alanine Aminotransferase 84 U/L (6-35); Albumin Level 3.1 g/dL (3.5-5.1); Alkaline Phosphatase 87 U/L (38-126); Aspartate Amino Transferase 81 U/L (14-36); Total Protein 5.3 g/dL (6.3-8.2)
[2024-09-12 05:49] LABS: Anisocytosis 1+; Band Neutrophils Percent 0 % (0-6); Microcytosis 1+ (NORMAL); Schistocytes None Seen
[2024-09-12 06:00] VITALS: BP 116/56; PULSE 88; RESP 18; TEMP 36.7; O2SAT 99
[2024-09-12 08:00] VITALS: PULSE 107
[2024-09-12] MEDS: POTASSIUM CHLORIDE 10 MEQ ER TABLET PO (08:23)
[2024-09-12] MEDS: THERAPEUTIC MULTIVITAMINS/MINERALS TAB (*BKC) 1 TABLET PO (08:23)
[2024-09-12] MEDS: FOLIC ACID 1 MG TABLET PO (08:24)
[2024-09-12] MEDS: PANTOPRAZOLE 40 MG TABLET PO (08:24)
[2024-09-12 12:00] VITALS: PULSE 90
--- NOTE | 2024-09-12 13:08 | P.DS_ITS ---
DS: Admitting Diagnosis Discharge Date 09/12 Admitting Diagnosis dehydration DS: Discharge Diagnosis Discharge Diagnosis (1) Syncope: Qualifiers: Syncope type: unspecified Qualified Code(s): R55 - Syncope and collapse Code(s): R55 - Syncope and collapse Status: Acute (2) Acute hyponatremia: Code(s): E87.1 - Hypo-osmolality and hyponatremia Status: Acute (3) Acute hypokalemia: Code(s): E87.6 - Hypokalemia Status: Acute Assessment and Plan: - K 2.3 - initial repletion with 20 KCL IVPB x2, recheck this evening - monitor (4) VINI (acute kidney injury): Code(s): N17.9 - Acute kidney failure, unspecified Status: Acute Assessment and Plan: - creatinine 1.33 and GFR 42, previously 0.93 and GFR 74 on 09/26/2023. - trend renal function - trend electrolytes, correct as needed Suspect VINI secondary to hypovolemia/poor p.o. intake, nausea and vomiting. Plan to rehydrate, if no improvement in renal function with 24 hours of fluids, consider Nephrology consultation and further workup. DS: Summary Hospital Course Hospital Course: 54 y/o F with PMH of hypertension, eczema, vitamin-D deficiency, and gastric ulcer presents here with syncope, nausea, and vomiting. # syncope - unclear if true syncope - EKG showed sinus rhythm with sinus arrhythmia, rate 87, possible left atrial enlargement, low QRS voltage in precordial leads. - hyponatremia, hypokalemia, and hypomagnesium noted. Plan to correct. - UA, viral PCR, and CXR showed no indicators of infection - troponin negative, will continue to trend - check orthostatics - reviewed glucose 137 Suspect syncope secondary to heat and hypovolemia due to nausea, vomiting, poor p.o. intake over the last few days. Will rehydrate, check orthostatics, correct electrolytes. # hyponatremia - Na 126 - NS 3L bolus -> NS 125 mL/hr Suspect hyponatremia secondary to poor dietary intake over the last few days. - repeated today-131 - encouraged to use Gatorade/ electrolyte if outside - cut down/limit of alcohol - will order repeat blood work to be done within 1 week to ensure improvement - close f/u with PCP 09/12- she is stable this morning. NO nausea,no vomiting, no chest pain. Stable for discharge. K is improved from 2.3-3.9. AST/ALT elevated but trending down. Will need to have it rechecked as well. F/u with pcp on further eval. Will need to lose weight and stop drinking and monitor liver enzymes closely. Status at Discharge Functional status at discharge: independent ambulation Overall status at discharge: patient is progressing back to baseline Time Spent with Patient Time attestation: Total time spent providing and/or coordinating discharge services: Time spent: Greater than 30 minutes Exam Const: General: comfortable and no acute distress Other: , female, nontoxic appearance HENMT: Face/Nose/Sinus: Normal nares present Mouth: Yes moist mucous membranes Eyes: General: appearance normal, both eyes and all related structures Sclera: sclerae normal Pupils: Equal, round and reactive pupils present EOM: EOMs intact bilaterally Resp: Effort & Inspection: normal respiratory effort Auscultation: clear to auscultation bilaterally Cardio: Rate: regular rate Rhythm: regular rhythm Other: S1-S2 present without murmur, rub, ectopy GI: GI Palp: Yes Soft to palpation Auscultation: normal bowel sounds Other: Abdomen soft, nondistended, nontender. Normoactive bowel sounds in all quadrants. Skin: General skin exam: normal color and no rashes or lesions noted Wounds: no wounds Neuro: Cranial nerves: Yes Equal, round and reactive pupils present Speech: normal speech Sensory Exam: normal sensation Other: A&O x4 Extrem: General: normal to inspection Psych: Mental Status: mental status grossly normal Affect: normal affect Other: good insight and judgment, pleasant DS: Data Data Completed and Pending Labs on day of discharge: Labs from last 24 hours 09/12/24 09/12/24 09/11/24 04:47 00:24 21:47 WBC 4.5 RBC 2.59 L Hgb 9.4 L Hct 27.7 L MCV 106.9 H D MCH 36.3 H MCHC 33.9 RDW 12.2 Plt Count 201 MPV 10.4 Immature Gran % (Auto) 0.2 Neut % (Auto) 54.0 Lymph % (Auto) 27.5 Patrick % (Auto) 12.7 H Eos % (Auto) 4.5 H Baso % (Auto) 1.1 Lymph # (Auto) 1.23 Patrick # (Auto) 0.6 Eos # (Auto) 0.2 Baso # (Auto) 0.1 Abs Immat Gran (auto) 0.01 Absolute Neuts (auto) 2.4 Absolute Nucleated RBC 0.000 Band Neutrophils % 0 Nucleated RBC % 0.0 Platelet Estimate Adequate Anisocytosis 1+ Microcytosis 1+ Schistocytes None seen Sodium 131 L Potassium 3.9 Chloride 104 Carbon Dioxide 21 L Anion Gap 6 BUN 3 L Creatinine 1.00 Estim Creat Clear Calc 58 Estimated GFR 58 L Glucose 97 Lactic Acid Calcium 8.6 Magnesium Cancelled Total Bilirubin 0.5 AST 81 H ALT 84 H Alkaline Phosphatase 87 Troponin I < 0.012 < 0.012 Total Protein 5.3 L Albumin 3.1 L Urine Color Urine Appearance Urine pH Ur Specific [place] Urine Protein Urine Glucose (UA) Urine Ketones Ur Blood (Man) Urine Nitrate Urine Bilirubin Urine Urobilinogen Leukocyte Esterase Rfl Influenza A (RT-PCR) Influenza B (RT-PCR) RSV (RT-PCR) SARS-CoV-2 RNA (RT-PCR) 09/11/24 09/11/24 09/11/24 21:47 21:47 21:47 WBC RBC Hgb Hct MCV MCH MCHC RDW Plt Count MPV Immature Gran % (Auto) Neut % (Auto) Lymph % (Auto) Patrick % (Auto) Eos % (Auto) Baso % (Auto) Lymph # (Auto) Patrick # (Auto) Eos # (Auto) Baso # (Auto) Abs Immat Gran (auto) Absolute Neuts (auto) Absolute Nucleated RBC Band Neutrophils % Nucleated RBC % Platelet Estimate Anisocytosis Microcytosis Schistocytes Sodium Potassium Chloride Carbon Dioxide Anion Gap BUN Creatinine Estim Creat Clear Calc Estimated GFR 51 L Glucose 114 H Cancelled Lactic Acid Calcium 8.5 Cancelled Magnesium 2.3 Total Bilirubin AST ALT Alkaline Phosphatase Troponin I Total Protein Albumin Urine Color Urine Appearance Urine pH Ur Specific [place] Urine Protein Urine Glucose (UA) Urine Ketones Ur Blood (Man) Urine Nitrate Urine Bilirubin Urine Urobilinogen Leukocyte Esterase Rfl Influenza A (RT-PCR) Influenza B (RT-PCR) RSV (RT-PCR) SARS-CoV-2 RNA (RT-PCR) 09/11/24 09/11/24 09/11/24 21:47 21:47 21:47 WBC RBC Hgb Hct MCV MCH MCHC RDW Plt Count MPV Immature Gran % (Auto) Neut % (Auto) Lymph % (Auto) Patrick % (Auto) Eos % (Auto) Baso % (Auto) Lymph # (Auto) Patrick # (Auto) Eos # (Auto) Baso # (Auto) Abs Immat Gran (auto) Absolute Neuts (auto) Absolute Nucleated RBC Band Neutrophils % Nucleated RBC % Platelet Estimate Anisocytosis Microcytosis Schistocytes Sodium Potassium Chloride Carbon Dioxide Anion Gap BUN 3 L Creatinine 1.12 H Cancelled Estim Creat Clear Calc 52 Cancelled Estimated GFR Cancelled Glucose Lactic Acid Calcium Magnesium Total Bilirubin AST ALT Alkaline Phosphatase Troponin I Total Protein Albumin Urine Color Urine Appearance Urine pH Ur Specific [place] Urine Protein Urine Glucose (UA) Urine Ketones Ur Blood (Man) Urine Nitrate Urine Bilirubin Urine Urobilinogen Leukocyte Esterase Rfl Influenza A (RT-PCR) Influenza B (RT-PCR) RSV (RT-PCR) SARS-CoV-2 RNA (RT-PCR) 09/11/24 09/11/24 09/11/24 21:47 21:47 21:47 WBC RBC Hgb Hct MCV MCH MCHC RDW Plt Count MPV Immature Gran % (Auto) Neut % (Auto) Lymph % (Auto) Patrick % (Auto) Eos % (Auto) Baso % (Auto) Lymph # (Auto) Patrick # (Auto) Eos # (Auto) Baso # (Auto) Abs Immat Gran (auto) Absolute Neuts (auto) Absolute Nucleated RBC Band Neutrophils % Nucleated RBC % Platelet Estimate Anisocytosis Microcytosis Schistocytes Sodium Potassium Chloride 101 Carbon Dioxide 19 L Cancelled Anion Gap 10 Cancelled BUN Cancelled Creatinine Estim Creat Clear Calc Estimated GFR Glucose Lactic Acid Calcium Magnesium Total Bilirubin AST ALT Alkaline Phosphatase Troponin I Total Protein Albumin Urine Color Urine Appearance Urine pH Ur Specific [place] Urine Protein Urine Glucose (UA) Urine Ketones Ur Blood (Man) Urine Nitrate Urine Bilirubin Urine Urobilinogen Leukocyte Esterase Rfl Influenza A (RT-PCR) Influenza B (RT-PCR) RSV (RT-PCR) SARS-CoV-2 RNA (RT-PCR) 09/11/24 09/11/24 09/11/24 21:47 21:47 21:47 WBC RBC Hgb Hct MCV MCH MCHC RDW Plt Count MPV Immature Gran % (Auto) Neut % (Auto) Lymph % (Auto) Patrick % (Auto) Eos % (Auto) Baso % (Auto) Lymph # (Auto) Patrick # (Auto) Eos # (Auto) Baso # (Auto) Abs Immat Gran (auto) Absolute Neuts (auto) Absolute Nucleated RBC Band Neutrophils % Nucleated RBC % Platelet Estimate Anisocytosis Microcytosis Schistocytes Sodium 130 L Cancelled Potassium 3.0 L Cancelled Chloride Cancelled Carbon Dioxide Anion Gap BUN Creatinine Estim Creat Clear Calc Estimated GFR Glucose Lactic Acid Calcium Magnesium Total Bilirubin AST ALT Alkaline Phosphatase Troponin I Total Protein Albumin Urine Color Urine Appearance Urine pH Ur Specific [place] Urine Protein Urine Glucose (UA) Urine Ketones Ur Blood (Man) Urine Nitrate Urine Bilirubin Urine Urobilinogen Leukocyte Esterase Rfl Influenza A (RT-PCR) Influenza B (RT-PCR) RSV (RT-PCR) SARS-CoV-2 RNA (RT-PCR) 09/11/24 09/11/24 09/11/24 19:49 18:02 16:44 WBC RBC Hgb Hct MCV MCH MCHC RDW Plt Count MPV Immature Gran % (Auto) Neut % (Auto) Lymph % (Auto) Patrick % (Auto) Eos % (Auto) Baso % (Auto) Lymph # (Auto) Patrick # (Auto) Eos # (Auto) Baso # (Auto) Abs Immat Gran (auto) Absolute Neuts (auto) Absolute Nucleated RBC Band Neutrophils % Nucleated RBC % Platelet Estimate Anisocytosis Microcytosis Schistocytes Sodium Potassium Chloride Carbon Dioxide Anion Gap BUN Creatinine Estim Creat Clear Calc Estimated GFR Glucose Lactic Acid 1.7 4.2 H* Calcium Magnesium Total Bilirubin AST ALT Alkaline Phosphatase Troponin I Total Protein Albumin Urine Color Yellow Urine Appearance Clear Urine pH 7.5 Ur Specific [place] 1.016 Urine Protein Negative Urine Glucose (UA) Negative Urine Ketones Negative Ur Blood (Man) Negative Urine Nitrate Negative Urine Bilirubin Negative Urine Urobilinogen 0.2 Leukocyte Esterase Rfl Negative Influenza A (RT-PCR) Negative Influenza B (RT-PCR) Negative RSV (RT-PCR) Negative SARS-CoV-2 RNA (RT-PCR) Negative 09/11/24 15:45 WBC 6.2 RBC 2.97 L Hgb 10.8 L Hct 29.8 L MCV 100.3 H MCH 36.4 H MCHC 36.2 H RDW 11.9 Plt Count 232 D MPV 9.2 Immature Gran % (Auto) 0.5 Neut % (Auto) 70.6 Lymph % (Auto) 17.4 L Patrick % (Auto) 9.7 H Eos % (Auto) 0.8 Baso % (Auto) 1.0 Lymph # (Auto) 1.08 Patrick # (Auto) 0.6 Eos # (Auto) 0.1 Baso # (Auto) 0.1 Abs Immat Gran (auto) 0.03 Absolute Neuts (auto) 4.4 Absolute Nucleated RBC 0.000 Band Neutrophils % Nucleated RBC % 0.0 Platelet Estimate Anisocytosis Microcytosis Schistocytes Sodium 126 L Potassium 2.3 L* Chloride 94 L Carbon Dioxide 21 L Anion Gap 11 BUN 4 L Creatinine 1.33 H Estim Creat Clear Calc 44 Estimated GFR 42 L Glucose 137 H Lactic Acid Calcium 9.3 Magnesium 1.1 L Total Bilirubin 0.8 AST 106 H ALT 104 H Alkaline Phosphatase 88 Troponin I < 0.012 Total Protein 6.3 Albumin 3.8 Urine Color Urine Appearance Urine pH Ur Specific [place] Urine Protein Urine Glucose (UA) Urine Ketones Ur Blood (Man) Urine Nitrate Urine Bilirubin Urine Urobilinogen Leukocyte Esterase Rfl Influenza A (RT-PCR) Influenza B (RT-PCR) RSV (RT-PCR) SARS-CoV-2 RNA (RT-PCR) Discharge Plan Discharge Attending physician on discharge: Ramesh Leija Discharging Clinician: Zulema Coburn Patient Disposition: Home Activity: may shower Diet: regular Discharge Instructions: You were admitted for dehydration and low electrolyte. YOu sodium level is importing, and potassium is back to normal. PLease take your daily multivitamins and drink gatorade if spending time outside. AST/ALT- liver enzymes elevated but trending down. You will need to have it rechecked as well. F/u with your primary care provider for further eval. Will need to lose weight and stop drinking alcohol and monitor liver enzymes closely to avoid liver disease. Patient Instructions: Antibiotic Form Patient Language: Bengali Stand Alone Forms: General Discharge Information Follow-up/Referrals: Jeff,Chani Carlos NP [Primary Care Provider] - 2 Weeks Discharge Medications: Continued estradiol 2 mg tablet 2 mg PO DAILY chlorpheniramine maleate 4 mg Tablet 4 mg PO Q4H PRN (Reason: Allergy Symptoms) losartan-hydrochlorothiazide 100-25 mg tablet 1 tablet PO HS potassium 99 mg Tablet 99 mg PO DAILY vitamin B complex Tablet 2 tablet PO 3XW magnesium 250 mg Tablet 250 mg PO DAILY Iron Complex/C/B12 Capsule 2 cap PO DAILY Multi For Her 18 mg iron-600 mcg-40 mcg Capsule 1 tab-cap PO DAILY Folate 800 mcg PO DAILY Pre/Pro-Biotic 1 gummy PO DAILY Skin,Hair And Nails 2 gummy PO DAILY Turmeric/Curcumen/Danielle 1 tab-cap PO DAILY vitamin D3-vitamin K2 1 tab-cap PO DAILY pantoprazole 40 mg tablet,delayed release (DR/EC) 40 mg PO BID Qty: 60 11RF lysine 1,000 mg tablet 1,000 mg PO DAILY Other Ambulatory Orders: Comprehensive Metabolic Panel (Routine) Timeframe: 1 Week Location: Determined by Patient Ordered By: Zulema Coburn Date of admission: 09/11/24 18:42 Primary Care Provider: Jeff,Chani Carlos Admitting Provider: Suzie Watts Attending physician on admission: Suzie Watts Condition: Stable Quality VTE Prophylaxis VTE prophylaxis: mechanical ordered
== END 2024-09-12 16:38 | disposition home or self-care (01) ==
LOC: ANHED 18:28 → ANH2MED 09-12 13:29
PROVIDERS: Emergency Medicine; Student in an Organized Health Care Education/Training Program; Admitting Provider Family Medicine; Emergency Provider Emergency Medicine; PCP Nurse Practitioner Family; Visit Provider Internal Medicine
DX: E86.0 Dehydration (principal); N17.9 Acute kidney failure, unspecified; E87.1 Hypo-osmolality and hyponatremia; E87.6 Hypokalemia; E83.42 Hypomagnesemia; R55 Syncope and collapse; I10 Essential (primary) hypertension; F17.210 Nicotine dependence, cigarettes, uncomplicated; E55.9 Vitamin D deficiency, unspecified; L30.9 Dermatitis, unspecified; Z20.822 Contact with and (suspected) exposure to COVID-19; Z87.11 Personal history of peptic ulcer disease
CPT/HCPCS: 36415; 71046; 71275; 74177; 80048; 80053; 81003; 83605; 83735; 84484; 85025; 87040; 87637; 93005; 96361; 96374; 96375; 99285; A9270; G0378; J3475; J3480; J7030; Q9967